=== PATIENT | male | born 1970 | race Caucasian/White ===

== ENCOUNTER 2019-03-19 16:29 | Inpatient (IN) | payer MEDICARE, BC ==
[~2019-03-19] VITALS: Ht 190.5 cm; Wt 128.6 kg
[2019-03-19] MEDS ORDERED: PROPOFOL 1,000 MG/100 ML VIAL As Ordered ONE (16:37)
[2019-03-19] MEDS ORDERED: ETOMIDATE INJ 20MG/10ML VIAL IV ONE (17:00)
[2019-03-19] MEDS ORDERED: ROCURONIUM BROMIDE 50 MG/5 ML VIAL IV ONE (17:00)
[2019-03-19 17:02] LABS: VENOUS BASE EXCESS -3.3 (-2.0-2.0); VENOUS HCO3 23.2 MEQ/L (23.0-27.0); VENOUS O2 SATURATION 97.9 % (60.0-80.0); VENOUS PARTIAL PRESSURE CO2 47.4 mmHg (38.0-50.0); VENOUS PARTIAL PRESSURE O2 140.2 mmHg (30.0-50.0); VENOUS PH 7.308 UNITS (7.330-7.430); VENOUS STANDARD HCO3 21.8 MEQ/L; VENOUS TOTAL CO2 24.7 MEQ/L (24.0-28.0)
[2019-03-19] MEDS ORDERED: EPINEPHrine 1MG/10ML SYRINGE 1.5IN As Ordered ONE (17:08)
[2019-03-19 17:14] LABS: HEMATOCRIT 38.2 % (42.0-52.0); HEMOGLOBIN 12.6 g/dl (13.5-17.5); MEAN CORPUSCULAR VOLUME 93.9 fl (80.0-96.0); PLATELET COUNT, AUTOMATED 243 10^3/uL (150-450); RED BLOOD COUNT 4.07 10^6/uL (4.30-6.10); WHITE BLOOD COUNT 10.5 10^3/uL (4.0-10.0)
[2019-03-19 17:25] LABS: ALBUMIN 3.6 GM/DL (3.2-5.2); BILIRUBIN,TOTAL 0.5 MG/DL (0.2-1.0); CALCIUM LEVEL 8.3 MG/DL (8.5-10.1); CK-MB VALUE MASS 3.1 NG/ML (<3.6); CREATININE FOR GFR 5.48 MG/DL (0.70-1.30); GLOMERULAR FILTRATION RATE 11.9 (>60); MAGNESIUM LEVEL 2.2 MG/DL (1.8-2.4); MB/CK RELATIVE INDEX 2.28 (< OR =4); POTASSIUM SERUM 3.3 MEQ/L (3.5-5.1); TOTAL PROTEIN 7.9 GM/DL (6.4-8.2); TROPONIN I 0.05 NG/ML (< 0.10)
--- NOTE | 2019-03-19 17:42 | REPVR ---
PROCEDURE INFORMATION: Exam: CT Head Without Contrast Exam date and time: 03/19/2019 5:33 PM Age: 48 years old Clinical indication: Other: Seizure like activity TECHNIQUE: Imaging protocol: Computed tomography of the head without contrast. Radiation optimization: All CT scans at this facility use at least one of these dose optimization techniques: automated exposure control; mA and/or kV adjustment per patient size (includes targeted exams where dose is matched to clinical indication); or iterative reconstruction. COMPARISON: No relevant prior studies available. FINDINGS: Brain: No acute intracranial hemorrhage, cerebral edema, or midline shift. Ventricles: No hydrocephalus. Bones/joints: No acute fracture. Sinuses: No acute sinusitis. Mastoid air cells: Visualized mastoid air cells are well aerated. Soft tissues: Unremarkable. Vasculature: Extensive vascular calcifications are present. Clinical correlation for diabetes is suggested. IMPRESSION: No acute intracranial abnormality. Electronically signed by: Albert Sung On 03/19/2019 17:42:20 PM
[2019-03-19] MEDS ORDERED: SERT25TA21 PO (17:54)
[2019-03-19] MEDS ORDERED: RENATAB5 PO (17:54)
[2019-03-19] MEDS ORDERED: VELT1POW (17:54)
[2019-03-19] MEDS ORDERED: GLIP10TA6 PO (17:54)
[2019-03-19] MEDS ORDERED: CARV6.25 PO (17:54)
[2019-03-19] MEDS ORDERED: PANT40TA3 PO (17:54)
[2019-03-19] MEDS ORDERED: VASC1CAP2 PO (17:54)
[2019-03-19] MEDS ORDERED: NOVOINJ3 SC (17:54)
[2019-03-19] MEDS ORDERED: HYDR-3911 PO (17:54)
[2019-03-19] MEDS ORDERED: CLON0.3D8 PO (17:54)
[2019-03-19] MEDS ORDERED: ASPI-1 (17:54)
[2019-03-19] MEDS ORDERED: ROSU10TA6 PO (17:54)
[2019-03-19] MEDS ORDERED: LEVE1INJ5 SC (17:54)
[2019-03-19] MEDS ORDERED: VELP5CHW PO (17:54)
[2019-03-19] MEDS ORDERED: AMLO5TAB6 PO (17:54)
[2019-03-19] MEDS: HumaLOG INSULIN (NovoLOG) PER UNIT SC SCH (18:00)
--- NOTE | 2019-03-19 18:09 | REP ---
Portable chest x-ray: Single view. History: Post intubation. No comparison study. Findings: Endotracheal tube is seen in good position at the level of proximal clavicles. A tunnel catheter is noted on the right via the internal jugular vein with its tip in the expected location of the SVC. There is evidence of a nasogastric tube coursing through the mediastinum. It enters the left upper quadrant of the abdomen. The lung laboy are symmetrically somewhat under aerated but no focal infiltrate is seen. Impression: Endotracheal and nasogastric tubes in place. Central venous catheter noted on the right. No acute disease. Electronically Signed by Vince Daugherty MD 03/20/2019 10:13 A
[2019-03-19] MEDS ORDERED: ASPI81TA26 PO (18:20)
[2019-03-19] MEDS ORDERED: NS 1,000 ML IV SCH (18:37)
[2019-03-19] MEDS ORDERED: LACRILUBE (AKWA TEARS) OPHTH OINT 3.5 GM OU PRN (18:45)
[2019-03-19] MEDS ORDERED: CISATRACURIUM 200 MG in NS 480 ML IV SCH (18:59)
[2019-03-19] MEDS ORDERED: CISATRACURIUM 10MG/ML 20 ML VIAL IV ONE (19:00)
[2019-03-19] MEDS ORDERED: ACETAMINOPHEN 650 MG SUPP PR ONE (19:15)
[2019-03-19] MEDS ORDERED: REFRIGERATOR IV KEYS XX PRN (19:30)
[2019-03-19 19:32] LABS: BASO % 0.2 % (0.0-1.0); EOS # 0.1 10^3/uL (0.0-0.5); EOS % 0.7 % (0.0-3.0); HEMOGLOBIN 13.8 g/dl (13.5-17.5); LYMPH % 10.5 % (24.0-44.0); MEAN CORPUSCULAR HEMOGLOBIN 30.1 pg (27.0-33.0); MEAN CORPUSCULAR HGB CONC 32.1 g/dl (32.0-36.5); MEAN CORPUSCULAR VOLUME 93.9 fl (80.0-96.0); MONO # 1.9 10^3/uL (0.0-0.8); MONO % 9.6 % (0.0-5.0); NEUTROPHILS # 15.2 10^3/uL (1.5-8.5); NEUTROPHILS % 78.7 % (36.0-66.0); PLATELET COUNT, AUTOMATED 261 10^3/uL (150-450); RED BLOOD COUNT 4.58 10^6/uL (4.30-6.10); WHITE BLOOD COUNT 19.3 10^3/uL (4.0-10.0)
[2019-03-19 19:49] LABS: INR 1.06; PROTHROMBIN TIME 13.5 SECONDS (11.8-14.0)
[2019-03-19 20:08] LABS: ALBUMIN 3.5 GM/DL (3.2-5.2); BILIRUBIN,TOTAL 0.4 MG/DL (0.2-1.0); CALCIUM LEVEL 8.5 MG/DL (8.5-10.1); CREATININE FOR GFR 6.05 MG/DL (0.70-1.30); GLOMERULAR FILTRATION RATE 10.6 (>60); MAGNESIUM LEVEL 2.1 MG/DL (1.8-2.4); MB/CK RELATIVE INDEX 4.32 (< OR =4); POTASSIUM SERUM 4.9 MEQ/L (3.5-5.1); TOTAL PROTEIN 7.9 GM/DL (6.4-8.2); TROPONIN I 1.29 NG/ML (< 0.10)
[2019-03-19] MEDS ORDERED: ETOMIDATE INJ 20MG/10ML VIAL ONE (20:33)
[2019-03-19] MEDS ORDERED: ROCURONIUM BROMIDE 50 MG/5 ML VIAL ONE (20:33)
[2019-03-19] MEDS: CHLORHEXIDINE GLUCONATE 0.12 % 15ML UDC (PERIDEX ORAL RINSE) MT SCH (21:00)
[2019-03-19] MEDS: LACRILUBE (AKWA TEARS) OPHTH OINT 3.5 GM OU SCH (21:00)
[2019-03-19 21:12] LABS: HEMATOCRIT 42.5 % (42.0-52.0); HEMOGLOBIN 13.8 g/dl (13.5-17.5); MEAN CORPUSCULAR HEMOGLOBIN 30.7 pg (27.0-33.0); MEAN CORPUSCULAR HGB CONC 32.5 g/dl (32.0-36.5); MEAN CORPUSCULAR VOLUME 94.7 fl (80.0-96.0); PLATELET COUNT, AUTOMATED 265 10^3/uL (150-450); RED BLOOD COUNT 4.49 10^6/uL (4.30-6.10); WHITE BLOOD COUNT 20.6 10^3/uL (4.0-10.0)
[2019-03-19 21:18] LABS: D-DIMER QUANT > 4000.00 ng/ml (<500)
[2019-03-19 21:29] VITALS: BP 158/82
[2019-03-19] MEDS ORDERED: propofoL 1,000 MG in IV 1 EA IV SCH ×2 (21:33→23:30)
[2019-03-19 21:37] LABS: INR 1.55; PARTIAL THROMBOPLASTIN TIME 31.1 SECONDS (25.0-38.4); PROTHROMBIN TIME 18.3 SECONDS (11.8-14.0)
[2019-03-19 21:56] LABS: ALBUMIN 3.5 GM/DL (3.2-5.2); BILIRUBIN,TOTAL 0.5 MG/DL (0.2-1.0); CALCIUM LEVEL 8.7 MG/DL (8.5-10.1); CK-MB VALUE MASS 10.3 NG/ML (<3.6); CREATININE FOR GFR 6.43 MG/DL (0.70-1.30); GLOMERULAR FILTRATION RATE 9.9 (>60); MAGNESIUM LEVEL 2.1 MG/DL (1.8-2.4); MB/CK RELATIVE INDEX 4.77 (< OR =4); PHOSPHORUS LEVEL 5.1 MG/DL (2.5-4.9); POTASSIUM SERUM 4.8 MEQ/L (3.5-5.1); TOTAL PROTEIN 7.7 GM/DL (6.4-8.2); TROPONIN I 2.65 NG/ML (< 0.10)
[2019-03-19] MEDS ORDERED: ACETAMINOPHEN 650 MG SUPP PR PRN (22:00)
[2019-03-19 22:10] VITALS: BP 108/47
[2019-03-19 22:40] VITALS: BP 105/81
[2019-03-19 23:15] VITALS: BP 128/95
[2019-03-19] MEDS: MIDAZOLAM INJ 2 MG/2 ML VIAL (J2250) IV PRN (23:32)
[2019-03-19] MEDS: HEPARIN SOD (PORCINE) 5000 UNITS/ML VIAL (J1644 PER 1000UNITS) SC SCH (23:33)
[2019-03-19 23:59] LABS: ABG HCO3 24.1 MEQ/L (22.0-26.0); ABG O2 SATURATION 98.7 % (95.0-99.0); ABG PARTIAL PRESSURE CO2 41.7 mmHg (35.0-45.0); ABG PARTIAL PRESSURE O2 372.1 mmHg (75.0-100.0); ABG STANDARD HCO3 23.7 MEQ/L (22.0-26.0); ABG TOTAL CO2 25.4 MEQ/L (22.0-29.0)
[2019-03-20] VITALS (75 sets, daily range): BP systolic 86–237; BP diastolic 50–107
[2019-03-20] MEDS: HumaLOG INSULIN (NovoLOG) PER UNIT SC SCH ×2 (00:29→06:17)
[2019-03-20] MEDS: MIDAZOLAM HCL 100 MG in D5W 80 ML IV SCH (01:41)
[2019-03-20] MEDS: MORPHINE SULF IN 0.9% NACL 100 MG in IV 1 EA IV SCH ×2 (01:42)
[2019-03-20] MEDS: niCARdipine IV 40 MG in IV 1 EA IV SCH ×4 (02:16→14:12)
[2019-03-20 02:57] LABS: HEMATOCRIT 42.1 % (42.0-52.0); HEMOGLOBIN 13.8 g/dl (13.5-17.5); MEAN CORPUSCULAR HEMOGLOBIN 30.3 pg (27.0-33.0); MEAN CORPUSCULAR HGB CONC 32.8 g/dl (32.0-36.5); MEAN CORPUSCULAR VOLUME 92.5 fl (80.0-96.0); PLATELET COUNT, AUTOMATED 230 10^3/uL (150-450); RED BLOOD COUNT 4.55 10^6/uL (4.30-6.10); WHITE BLOOD COUNT 20.2 10^3/uL (4.0-10.0)
[2019-03-20 03:08] LABS: INR 1.16; PROTHROMBIN TIME 14.5 SECONDS (11.8-14.0)
[2019-03-20 03:09] LABS: PARTIAL THROMBOPLASTIN TIME 32.8 SECONDS (25.0-38.4)
[2019-03-20 03:30] LABS: ABG HCO3 24.4 MEQ/L (22.0-26.0); ABG O2 SATURATION 98.5 % (95.0-99.0); ABG PARTIAL PRESSURE O2 238.7 mmHg (75.0-100.0); ABG STANDARD HCO3 24.5 MEQ/L (22.0-26.0); ABG TOTAL CO2 25.6 MEQ/L (22.0-29.0); ABG pH (ARTERIAL) 7.414 UNITS (7.350-7.450)
[2019-03-20 03:40] LABS: ALBUMIN 3.4 GM/DL (3.2-5.2); BILIRUBIN,TOTAL 0.4 MG/DL (0.2-1.0); CALCIUM LEVEL 8.3 MG/DL (8.5-10.1); CK-MB VALUE MASS 12.4 NG/ML (<3.6); CREATININE FOR GFR 6.91 MG/DL (0.70-1.30); GLOMERULAR FILTRATION RATE 9.1 (>60); MAGNESIUM LEVEL 2.2 MG/DL (1.8-2.4); MB/CK RELATIVE INDEX 4.77 (< OR =4); PHOSPHORUS LEVEL 3.8 MG/DL (2.5-4.9); POTASSIUM SERUM 5.3 MEQ/L (3.5-5.1); TOTAL PROTEIN 7.6 GM/DL (6.4-8.2); TROPONIN I 2.7 NG/ML (< 0.10)
[2019-03-20 05:38] LABS: ABG BASE EXCESS -1.6 (-2.0-2.0); ABG HCO3 22.6 MEQ/L (22.0-26.0); ABG PARTIAL PRESSURE CO2 36.4 mmHg (35.0-45.0); ABG PARTIAL PRESSURE O2 105.8 mmHg (75.0-100.0); ABG STANDARD HCO3 23.2 MEQ/L (22.0-26.0); ABG TOTAL CO2 23.7 MEQ/L (22.0-29.0); ABG pH (ARTERIAL) 7.411 UNITS (7.350-7.450)
[2019-03-20 06:08] LABS: HEMATOCRIT 40.8 % (42.0-52.0); HEMOGLOBIN 13.5 g/dl (13.5-17.5); MEAN CORPUSCULAR HEMOGLOBIN 30.7 pg (27.0-33.0); MEAN CORPUSCULAR HGB CONC 33.1 g/dl (32.0-36.5); MEAN CORPUSCULAR VOLUME 92.7 fl (80.0-96.0); PLATELET COUNT, AUTOMATED 231 10^3/uL (150-450); WHITE BLOOD COUNT 18.8 10^3/uL (4.0-10.0)
[2019-03-20] MEDS: HEPARIN SOD (PORCINE) 5000 UNITS/ML VIAL (J1644 PER 1000UNITS) SC SCH ×3 (06:16→21:21)
[2019-03-20 06:24] LABS: INR 1.17; PROTHROMBIN TIME 14.7 SECONDS (11.8-14.0)
[2019-03-20 06:25] LABS: PARTIAL THROMBOPLASTIN TIME 33.3 SECONDS (25.0-38.4)
[2019-03-20 06:38] LABS: ALBUMIN 3.4 GM/DL (3.2-5.2); BILIRUBIN,TOTAL 0.4 MG/DL (0.2-1.0); CALCIUM LEVEL 8.6 MG/DL (8.5-10.1); CK-MB VALUE MASS 12.1 NG/ML (<3.6); CREATININE FOR GFR 6.94 MG/DL (0.70-1.30); GLOMERULAR FILTRATION RATE 9.1 (>60); MAGNESIUM LEVEL 2.2 MG/DL (1.8-2.4); MB/CK RELATIVE INDEX 5.9 (< OR =4); PHOSPHORUS LEVEL 2.6 MG/DL (2.5-4.9); POTASSIUM SERUM 4.9 MEQ/L (3.5-5.1); TOTAL PROTEIN 7.4 GM/DL (6.4-8.2); TROPONIN I 2.28 NG/ML (< 0.10)
--- NOTE | 2019-03-20 07:40 | REP ---
Clinical: Status post intubation. Comparison: 03/19/2019. Findings: Endotracheal tube approximately 3.6 cm above the fam. Nasogastric tube courses below left hemidiaphragm. Double-lumen catheter extends into the SVC. The cardiac silhouette is within normal limits and stable. Left lower lobe opacities suggesting consolidation and possible small effusion. Impression: 1. Lines and tubes in satisfactory position. 2. Left lower lobe opacity suggesting consolidation and small effusion. Electronically Signed by Shady Umaña MD 03/20/2019 07:32 A
--- NOTE | 2019-03-20 08:01 | REP ---
CHEST, PORTABLE: Two AP portable supine films of the chest are performed and compared to a prior exam the same day. There is a right double lumen central venous catheter again seen with the tip in the superior vena cava. Endotracheal tube is seen with the tip approximately 6.8 cm above the fam. There is poor ventilation. Pulmonary vasculature is prominent appearing similar to the prior study. Cardiac silhouette is prominent. Mediastinal silhouette is unchanged. There are degenerative changes of the spine. Electronically Signed by Jacob Ponce MD 03/20/2019 01:03 P
[2019-03-20] MEDS: PANTOPRAZOLE 40MG INJ (PROTONIX) (C9113) IV SCH (08:22)
[2019-03-20] MEDS: LACRILUBE (AKWA TEARS) OPHTH OINT 3.5 GM OU SCH ×3 (08:22→20:00)
[2019-03-20] MEDS: CHLORHEXIDINE GLUCONATE 0.12 % 15ML UDC (PERIDEX ORAL RINSE) MT SCH ×2 (08:23→19:59)
--- NOTE | 2019-03-20 09:43 | HPE ---
DATE OF ADMISSION: 03/19/2019 HISTORY OF PRESENT ILLNESS: Mr. Maciel is a 48-year-old male whose past medical history is most significant for end-stage renal disease requiring dialysis, diabetes mellitus, and hypertension who was at dialysis today and apparently after dialysis collapsed. Apparently, there is a question of whether there is seizure movement. An automated external defibrillator (AED) was placed, which did not suggest a shock. When emergency medical services (EMS) arrived the rhythm was pulseless electrical activity (PEA). He was given one doses of epinephrine with return of spontaneous circulation. He had approximately 10 minutes of cardiopulmonary resuscitation (CPR) done. He could not be intubated and an laryngeal mask airway (LMA) was placed. When he was transferred to the hospital here, the LMA was replaced with an endotracheal tube. His workup included a head CT scan, which was read as showing no acute intracranial abnormality. His electrolytes will be dictated below but did not clearly identified an etiology for his difficulties. His lactic acid was elevated at 4.3 but this is post-code. He had an initial VBG which was not markedly abnormal though his initial ABG did show an acute respiratory acidemia. He had been paralyzed for intubation. After that paralysis wore off his propofol drip was stopped. He is moving but he has had no purposeful movement. PAST MEDICAL HISTORY: 1. Diabetes mellitus type 2. 2. End-stage renal disease leading to hemodialysis. 3. . Hypertension. 4. Obstructive sleep apnea (GIUSEPPE) 5. Congenital deafness. 6. Status post left cerebrovascular accident (CVA), ischemic infarct January 2019. 7. Status post gastric bypass. 8. Status post ligation of arteriovenous (AV) fistula. 9. Patent foramen ovale. ALLERGIES: PENICILLINS, BACITRACIN, NEOMYCIN, POLYMYXIN B. MEDICATIONS ON ADMISSION: - amlodipine 5 mg by mouth. - aspirin 81 mg by mouth daily - carvedilol 6.25 mg by mouth twice a day - clonidine 0.3 mg by mouth every week - Aisha-Samantha one by mouth daily - glipizide 20 mg by mouth twice a day - hydralazine 100 mg by mouth three times a day - VASCEPA 2 grams by mouth twice a day - NovoLog 1 dose of in the morning per sliding scale. - Levemir 20 units subcu twice a day - pantoprazole 40 mg by mouth daily. - [id number] mg by mouth every night - sertraline 25 mg by mouth daily. - Velphoro 1500 mg by mouth. SOCIAL HISTORY, FAMILY HISTORY AND REVIEW OF SYSTEMS: Unattainable secondary intubation. PHYSICAL EXAMINATION: GENERAL: Mr. Maciel is intubated and synchronous with the vent, thought he does have "copy" style breathing pattern. VITAL SIGNS: Temperature not taken yet (inserting rectal probe), pulse 107, respiratory rate 20, blood pressure 159/90 with a MAP of 113, sPO2 of 100% on ventilator with an FiO2 of 0.4. HEENT: Anicteric, pupils 3 mm and sluggish. Nares: Patent bilaterally. Moisture mucosa bilaterally. Oropharynx: Endotracheal tube (ET) and orogastric tube (OG) in place. Moist mucosa. NECK: Supple, trachea is midline. LYMPHS: No cervical or supraclavicular lymphadenopathy. CHEST: Normal shape lungs. Symmetric excursion, generalized diminished air entry. No wheeze, rhonchi or crackle on tidal excursion. Normal I/E. No accessory muscle use or retractions. Right subclavian dialysis catheter in place. CARDIOVASCULAR: Tachycardiac with regular rhythm, normal S1, S2. No murmur, rub or gallop appreciated. ABDOMEN: Diminished for present bowel sounds, soft, nondistended, no hepatosplenomegaly or masses appreciated. Well-healed scar. EXTREMITIES: Multiple well-healed cuts as well as a bandage over left morales cut. There is mild erythema. There is also left intraosseous (IO) in place. LABORATORY DATA: Initial CBC showed a hemoglobin of 12.6, hematocrit 38.2, platelet count 243,000, white blood cell count 10,500. Repeat CBC showed a hemoglobin of 13.8, hematocrit 43, platelet count 261,000 and white blood cell count 19,300 with a differential of 79% neutrophils, 11% lymphocytes, 10% monocytes. Chemistries show sodium 135, potassium 3.3, chloride 97, bicarbonate 25, anion gap 13, BUN 20, creatinine 5.5, glucose 239, lactic acid 4.3, calcium 8.3, magnesium 2.2, total bilirubin 0.5, AST 95, ALT 85, alkaline phosphatase 127, CK 136, CK MB 3.1, troponin-I 0.05, total protein 7.9, albumin 3.6. INR is 1.06 and PT 13.51, PTT 31.0 D-dimer is pending. His initial Vvg on arrival was 7.31/47/140 with a measured saturation 97.9% and a base excess of -3.3. I am not certain of what oxygen that was drawn on. His first arterial blood gas shows pH 7.26, pCO2 64, pO2 97 with a measured saturation was 96%. A repeat blood gas after was 7.29/64/282 with a measured saturation of 100%. EKG showed sinus tachycardia with a rate of 100. There is poor R-wave progression. I reviewed his chest x-ray as well as the report from earlier today. That x-ray showed likely normal cardiac silhouette and pulmonary vascular shadows. It is a shallow inspiration and difficult to tell whether there are interstitial infiltrates. There is a right tunneled catheter. Endotracheal tube is in good position. I reviewed his head CT scan report which stated no acute intracranial cranial abnormality. IMPRESSION: 1. [id number]-[id number] cardiac arrest of uncertain etiology. The rhythm was described PEA resuscitation with 1 ampule of epinephrine and CPR 2. End-stage renal disease leading to dailysis. 3. Diabetes mellitus. 4. Congenital blindness. 5. Patent foramen ovale (PFO). 6. History of CVA January 2019 7. Hypertension with poor control. RECOMMENDATIONS: 1. He is not making purposeful movements after CPR, I have discussed this with the emergency department physician. We think it is best to start the hypothermia protocol for best neurologic outcome. 2. We will refrain from sedation or pain control unless paralyzed to allow best neurologic examination. 3. If paralysis, there are standing orders to start him on both the morphine and Versed drips. 4. As he is quite hypertensive at this time and just completed dialysis, and he is dialysis dependent, will not start IV fluids 5. In regards to blood pressure control, at the present time we will use hydralazine given that he is on that as an outpatient. I will also contact nephrology for their recommendations. 6. We will continue on a sliding scale protocol as per the hypothermia protocol. He may need some adjustments in the actual insulin dosage that he is given, given his a significant requirements as an outpatient. 7. His family has been updated. PROGNOSIS: Guarded. CRITICAL CARE TIME: 2 hours not including procedure time. ANASTASIA
[2019-03-20 11:00] LABS: ABG BASE EXCESS -1.3 (-2.0-2.0); ABG HCO3 23.7 MEQ/L (22.0-26.0); ABG O2 SATURATION 97.6 % (95.0-99.0); ABG PARTIAL PRESSURE CO2 38.8 mmHg (35.0-45.0); ABG PARTIAL PRESSURE O2 96.3 mmHg (75.0-100.0); ABG STANDARD HCO3 23.4 MEQ/L (22.0-26.0); ABG pH (ARTERIAL) 7.398 UNITS (7.350-7.450)
[2019-03-20 11:15] LABS: HEMATOCRIT 37.3 % (42.0-52.0); HEMOGLOBIN 12.6 g/dl (13.5-17.5); MEAN CORPUSCULAR HEMOGLOBIN 30.8 pg (27.0-33.0); MEAN CORPUSCULAR HGB CONC 33.8 g/dl (32.0-36.5); MEAN CORPUSCULAR VOLUME 91.2 fl (80.0-96.0); PLATELET COUNT, AUTOMATED 237 10^3/uL (150-450); RED BLOOD COUNT 4.09 10^6/uL (4.30-6.10)
[2019-03-20 11:27] LABS: INR 1.18; PROTHROMBIN TIME 14.7 SECONDS (11.8-14.0)
[2019-03-20 11:28] LABS: PARTIAL THROMBOPLASTIN TIME 27.5 SECONDS (25.0-38.4)
[2019-03-20] MEDS: INSULIN HUMAN REGULAR 100 UNITS in NS 99 ML IV SCH (11:28)
[2019-03-20 11:47] LABS: ALBUMIN 3.3 GM/DL (3.2-5.2); BILIRUBIN,TOTAL 0.6 MG/DL (0.2-1.0); CALCIUM LEVEL 8.6 MG/DL (8.5-10.1); CREATININE FOR GFR 7.31 MG/DL (0.70-1.30); GLOMERULAR FILTRATION RATE 8.5 (>60); MAGNESIUM LEVEL 2.3 MG/DL (1.8-2.4); PHOSPHORUS LEVEL 3.6 MG/DL (2.5-4.9); POTASSIUM SERUM 4.9 MEQ/L (3.5-5.1); TOTAL PROTEIN 7.3 GM/DL (6.4-8.2)
[2019-03-20] MEDS: INSULIN IV RATE CHANGE DOCUMENTATION ML/HR XX SCH ×3 (12:53→16:13)
[2019-03-20 15:02] LABS: HEMATOCRIT 38.5 % (42.0-52.0); HEMOGLOBIN 13.2 g/dl (13.5-17.5); MEAN CORPUSCULAR HEMOGLOBIN 31.4 pg (27.0-33.0); MEAN CORPUSCULAR HGB CONC 34.3 g/dl (32.0-36.5); MEAN CORPUSCULAR VOLUME 91.7 fl (80.0-96.0); PLATELET COUNT, AUTOMATED 228 10^3/uL (150-450); WHITE BLOOD COUNT 14.6 10^3/uL (4.0-10.0)
[2019-03-20 15:13] LABS: ABG BASE EXCESS -0.6 (-2.0-2.0); ABG HCO3 24.3 MEQ/L (22.0-26.0); ABG O2 SATURATION 98.2 % (95.0-99.0); ABG PARTIAL PRESSURE CO2 39.2 mmHg (35.0-45.0); ABG PARTIAL PRESSURE O2 112.4 mmHg (75.0-100.0); ABG TOTAL CO2 25.5 MEQ/L (22.0-29.0); ABG pH (ARTERIAL) 7.405 UNITS (7.350-7.450)
[2019-03-20 15:17] LABS: INR 1.19; PROTHROMBIN TIME 14.9 SECONDS (11.8-14.0)
[2019-03-20 15:18] LABS: PARTIAL THROMBOPLASTIN TIME 32.9 SECONDS (25.0-38.4)
[2019-03-20 15:26] LABS: ALBUMIN 3.2 GM/DL (3.2-5.2); BILIRUBIN,TOTAL 0.6 MG/DL (0.2-1.0); CALCIUM LEVEL 9.4 MG/DL (8.5-10.1); CREATININE FOR GFR 7.57 MG/DL (0.70-1.30); GLOMERULAR FILTRATION RATE 8.2 (>60); MAGNESIUM LEVEL 2.3 MG/DL (1.8-2.4); PHOSPHORUS LEVEL 4.2 MG/DL (2.5-4.9); POTASSIUM SERUM 4.6 MEQ/L (3.5-5.1); TOTAL PROTEIN 7.9 GM/DL (6.4-8.2)
--- NOTE | 2019-03-20 15:39 | CR ---
DATE OF CONSULTATION: 03/20/2019 REQUESTING PHYSICIAN: Dr. Lemons. REASON FOR CONSULTATION: Management of end-stage renal disease, hemodialysis and hypertension. CHIEF COMPLAINT: The patient was brought to the emergency room after cardiac arrest. HISTORY OF PRESENT ILLNESS: Jayant Maciel is a 48-year-old male with past medical history of end-stage renal disease on hemodialysis every Sunday, Sunday, Sunday, history of diabetes mellitus type 2, hypertension, obstructive sleep apnea. He is congenitally deaf and mute. History of a cerebrovascular accident (CVA), multiple other comorbidities as mentioned below. He came for his regular dialysis yesterday and at the end of the dialysis, while the blood was being returned, as reported by nursing staff, he had kind of like a seizure-like activity and he became unconscious. He lost his pulse. Staff started cardiopulmonary resuscitation (CPR) on him. They called 911. By the time emergency medical services (EMS) arrived, he was on the floor for about 5 minutes and CPR was in progress. The EMS continue the resuscitation. His down time was around 10 minutes. Laryngeal mask airway was placed. Patient has pulseless activity on the EMS rhythm, so on the epinephrine was given. No shock was given. In the emergency room the patient got the endotracheal tube placed. He was transferred to intensive care unit (ICU) for further care after resuscitation. Actually he did not receive any pressors. The patient was actually hypertensive and the patient was discussed by myself with the addiction counselor overnight and decision was made to start the patient on Paradione drip. He is currently on Cardene and because it was a witnessed arrest, the patient was started on hypothermia protocol. He was cooled down over night and currently he is intubated, sedated and paralyzed. I saw and evaluated the patient this morning at the bedside in the ICU. His mother was also present at the bedside. Current clinical status was discussed with the mother and she was updated about the patient's current condition. 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 He uses sign language. History of ischemic infarct in the chele in January 2019. History of patent foramen ovale and recent admission to the hospital with bacteremia. PAST SURGICAL HISTORY: Status post ligation of the left forearm arteriovenous (AV) fistula because of ischemia in the fingers. 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 Status post gastric bypass in the past. ALLERGIES: The patient is allergic to PENICILLIN, NEOMYCIN and POLYMYXIN and BACITRACIN. FAMILY HISTORY: No significant family history of end-stage renal disease requiring hemodialysis. SOCIAL HISTORY: The patient lives at home with his . His mother also helps with his care. REVIEW OF SYSTEMS: I was unable to do review of systems because the patient is intubated and sedated. PHYSICAL EXAMINATION: GENERAL: The patient is intubated, sedated, paralyzed. VITAL SIGNS: Temperature is 96.9 degrees Fahrenheit, blood pressure 187/75, pulse is 84, respiratory rate of 22, saturating 98% on the vent with 40% FiO2. HEAD AND NECK EXAM: Patient's eyes are closed. Pupils are myotic and sluggish response to light. Neck is supple. He has a tunneled hemodialysis catheter. CARDIOVASCULAR: S1, S2, regular rate. No edema of the bilateral lower extremities. RESPIRATORY: Chest is clear to auscultation bilaterally. He is intubated. He has an endotracheal tube. No active rales or rhonchi. ABDOMEN: Soft, obese, no organomegaly noted. GENITOURINARY: He has an indwelling Shelton catheter. MUSCULOSKELETAL: The patient has amputation of the left ring finger. No clubbing or cyanosis in the extremities. No edema of the bilateral lower extremities. 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 SKIN: No significant rashes or ulcers were noted. LAB REVIEW: CBC showed WBC of 16, hemoglobin 12.6, platelets of 237, INR is 1.1. ABG done this morning showed pH of 7.39, pCO2 of 38, pO2 96, bicarb is 25. Old sat is 97%. BMP showed sodium 133, potassium 4.9, chloride 96, bicarb 26, BUN 35, creatinine is 7.3, calcium 8.6, phosphorus 3.6, magnesium 2.3, troponin latest is 2.28, albumin 3.3. Imaging: A chest x-ray was done today morning which showed lines and tubes in satisfactory position left lower lobe opacity suggesting consolidation and small effusion. CT of the head without contrast was done which showed no acute intracranial abnormality. CURRENT INPATIENT MEDICATIONS: The patient is currently on morphine drip. He is on nicardipine at 5 mg an hour. He is on IV propofol. He is on Versed drip. He is paralyzed with cisatracurium, Tylenol as needed , Versed as needed for agitation, Protonix 40 mg IV daily. ASSESSMENT: 48-year-old male with end-stage renal disease on hemodialysis, hypertension, diabetes mellitus type 2, congenital deafness, patent foramen ovale, over history of CVA in January 2019 admitted this time after cardiac arrest currently undergoing hypothermia protocol. PLAN: 1. End-stage renal disease: The patient was dialyzed yesterday. His electrolytes and acid base status is within the acceptable range. No urgent need for dialysis at this time especially when the patient is undergoing hypothermia, I would not dialyze the patient. He will be evaluated tomorrow morning for need to do hemodialysis. 2. Hypertension: The patient's blood pressures were all uncontrolled after resuscitation. He is currently on Cardene drip. It can be titrated up to maintain his blood pressure less than 160 systolic. 3. Diabetes mellitus type 2 insulin dependent. The patient is currently on insulin drip at 4 units an hour. Glucose levels are within the acceptable range. 4. Status post cardiac arrest: The patient is currently intubated, sedated and paralyzed. He is undergoing hypothermia protocol. Troponins are slightly elevated. Blood pressure is being controlled with Cardene drip as mentioned above. 5. Vent dependent respiratory failure: It is secondary to cardiac arrest and currently he is on the vent because he is been undergoing hypothermia. Vent management is as per pulmonary service. Thank you for involving me in the care of this patient. I shall be happy to follow the patient along with you tomorrow morning. Total critical care time spent in the management of this patient this morning in the ICU was 70 minutes excluding all the procedures.
--- NOTE | 2019-03-20 15:42 | CCN ---
DATE: 03/20/2019 NOTED: Mr. Maciel remains critically ill following an [id number] cardiac arrest yesterday afternoon. The etiology is not known as to the cause of the arrest. I was able to clarify from his and speaking with Dr. Soto that he had just finished his dialysis run and he was getting blood back. Typically, they stand up to take a blood pressure. After that was done, he apparently collapsed to the floor. No pulse was felt. Cardiopulmonary resuscitation (CPR) was started. Emergency Medical Services (EMS) arrived in about 5 minutes and the rest is according to the note I dictated yesterday. He had minimal responsiveness in the emergency department. His response consisted of moving his head back and forth some, biting the tube at times and It was felt best to start the hypothermia protocol and he reached the desired temperature at 1 a.m. this morning. Prior to that he had moved his legs some and arms some but it was almost posturing movements. No purposeful movement was seen. His family was there attempting to sign with him but he would not track or focus. He was hypertensive and he was started on Nimbex yesterday evening with a systolic blood pressure goal of 150-160. Because of head moving he was placed on propofol briefly, then he began shivering and propofol was discontinued. Continuous morphine and Versed drips were started and he was paralyzed. OBJECTIVE/PHYSICAL EXAMINATION: General: Mr. Maciel is lying in bed. He is paralyzed. Vital Signs: Temperature 96.9, pulse 84, respiratory rate 22, blood pressure 187/75, SpO2 98% on FiO2 0.4. HEENT: Anicteric, left pupil 2 mm and reactive, right pupil 1 mm and reactive. Nares: Patent bilaterally. Moist mucousa. Oropharynx: Endotracheal tube (ET) tube and orogastric (OG) tube in place. Neck: Without lymphadenopathy, trachea is midline. Lungs: Limited exam secondary to Artic Sun. What is heard is good air entry. No wheeze, rhonchi or crackle. Abdomen: Limited exam because of Artic Sun. Decreased bowel sounds. Soft. Extremities: Cool, without clubbing or cyanosis, palpable right pedal pulse and dopplerable left pedal pulse. LABORATORY DATA: Most recent labs from 10:50 shows CBC of 12.6, hematocrit 37.3, platelet count 273,000, white blood cell count 16,000. Chemistries from the same time show a sodium 133, potassium 4.9, chloride 96, bicarbonate 26, anion gap 11, BUN 35, creatinine 7.3, glucose 331, calcium 8.6, phosphorus 3.6, magnesium 2.3, total bilirubin 0.6, AST 35, ALT 59, alkaline phosphatase 117, albumin 3.3. Peak Troponin was 2.7 at 02:49 with a subsequent one 2.28 at 05:52. INR 1.2 and PTT 27.5. Most recent arterial blood gas at 10:50 was 7.4/39/96 with a measured saturation of 98% and a base excess of -1.3. I reviewed his chest x-ray as well as the report. That x-ray showed normal appearing cardiac silhouette and pulmonary vascular shadows. Normal-appearing mediastinal and hilar regions. No consolidated regions. There was a haziness in the left costophrenic angle and loss of the diaphragm on the left. IMPRESSION: 1. Out of hospital cardiac arrest, unknown etiology, differential would include hypovolemia, cardiac arrhythmia, CVA, or other. 2. End-stage renal disease leading to dialysis. 3. Diabetes mellitus, on sliding scale insulin. 4. Hypertension, on Nimbex. 5. Congenital blindness and mutism. 6. History of pontine CVA 01/2019. 7. Patent foramen ovale. 8. Deep venous thrombosis (DVT) prophylaxis, on subcutaneous heparin. 9. Stress ulcer prophylaxis with proton pump inhibitor. 10. Nutrition: Nothing by mouth RECOMMENDATIONS: 1. Will continue hypothermia protocol. Anticipate rewarming will start at 1 a.m. on 03/21/2019 2. Will start insulin drip. 3. Will continue Nimbex with SBP goal of 150-160. 4. I have spoken with Dr. Soto and plan is for dialysis tomorrow morning. He recommended if his potassium got above in the 5.5-6 range that he be given Kayexalate. If it is above 6, they should be contacted. 5. I have updated the family consisting of his , his mother and his [id number]. CRITICAL CARE TIME: 40 minutes, not including procedure time. [facility] HOSPITALColt
[2019-03-20] MEDS ORDERED: CISATRACURIUM 200 MG in NS 480 ML IV SCH (17:00)
[2019-03-20] MEDS ORDERED: ASPIRIN 300 MG SUPP PR ONE (17:45)
[2019-03-20 18:41] LABS: ABG O2 SATURATION 96.6 % (95.0-99.0); ABG PARTIAL PRESSURE CO2 39.3 mmHg (35.0-45.0); ABG STANDARD HCO3 23.6 MEQ/L (22.0-26.0); ABG TOTAL CO2 25.2 MEQ/L (22.0-29.0); ABG pH (ARTERIAL) 7.399 UNITS (7.350-7.450)
[2019-03-20 19:04] LABS: HEMATOCRIT 36.2 % (42.0-52.0); HEMOGLOBIN 12.4 g/dl (13.5-17.5); MEAN CORPUSCULAR HEMOGLOBIN 31.3 pg (27.0-33.0); MEAN CORPUSCULAR HGB CONC 34.3 g/dl (32.0-36.5); MEAN CORPUSCULAR VOLUME 91.4 fl (80.0-96.0); PLATELET COUNT, AUTOMATED 223 10^3/uL (150-450); RED BLOOD COUNT 3.96 10^6/uL (4.30-6.10); WHITE BLOOD COUNT 15.2 10^3/uL (4.0-10.0)
[2019-03-20 19:15] LABS: INR 1.22; PROTHROMBIN TIME 15.1 SECONDS (11.8-14.0)
[2019-03-20 19:16] LABS: PARTIAL THROMBOPLASTIN TIME 32.6 SECONDS (25.0-38.4)
[2019-03-20 19:36] LABS: ALBUMIN 3.2 GM/DL (3.2-5.2); BILIRUBIN,TOTAL 0.3 MG/DL (0.2-1.0); CREATININE FOR GFR 7.85 MG/DL (0.70-1.30); GLOMERULAR FILTRATION RATE 7.9 (>60); MAGNESIUM LEVEL 2.4 MG/DL (1.8-2.4); PHOSPHORUS LEVEL 4.4 MG/DL (2.5-4.9); POTASSIUM SERUM 4.1 MEQ/L (3.5-5.1); TOTAL PROTEIN 7.1 GM/DL (6.4-8.2)
[2019-03-20 23:10] LABS: ABG BASE EXCESS -0.5 (-2.0-2.0); ABG HCO3 24.4 MEQ/L (22.0-26.0); ABG O2 SATURATION 98.1 % (95.0-99.0); ABG PARTIAL PRESSURE CO2 39.3 mmHg (35.0-45.0); ABG STANDARD HCO3 24.1 MEQ/L (22.0-26.0); ABG TOTAL CO2 25.6 MEQ/L (22.0-29.0); ABG pH (ARTERIAL) 7.406 UNITS (7.350-7.450)
[2019-03-20 23:12] LABS: HEMATOCRIT 34.1 % (42.0-52.0); HEMOGLOBIN 11.8 g/dl (13.5-17.5); MEAN CORPUSCULAR HEMOGLOBIN 31.5 pg (27.0-33.0); MEAN CORPUSCULAR HGB CONC 34.6 g/dl (32.0-36.5); MEAN CORPUSCULAR VOLUME 90.9 fl (80.0-96.0); PLATELET COUNT, AUTOMATED 222 10^3/uL (150-450); RED BLOOD COUNT 3.75 10^6/uL (4.30-6.10); WHITE BLOOD COUNT 16.8 10^3/uL (4.0-10.0)
[2019-03-20 23:23] LABS: INR 1.25; PROTHROMBIN TIME 15.5 SECONDS (11.8-14.0)
[2019-03-20 23:24] LABS: PARTIAL THROMBOPLASTIN TIME 36.3 SECONDS (25.0-38.4)
[2019-03-20 23:49] LABS: BILIRUBIN,TOTAL 0.3 MG/DL (0.2-1.0); CALCIUM LEVEL 8.5 MG/DL (8.5-10.1); CREATININE FOR GFR 7.88 MG/DL (0.70-1.30); GLOMERULAR FILTRATION RATE 7.8 (>60); MAGNESIUM LEVEL 2.2 MG/DL (1.8-2.4); PHOSPHORUS LEVEL 5.3 MG/DL (2.5-4.9); POTASSIUM SERUM 4.7 MEQ/L (3.5-5.1); TOTAL PROTEIN 6.8 GM/DL (6.4-8.2)
[2019-03-21] VITALS (47 sets, daily range): BP systolic 99–210; BP diastolic 49–138
[2019-03-21] MEDS: INSULIN HUMAN REGULAR 100 UNITS in NS 99 ML IV SCH ×2
[2019-03-21 03:02] LABS: ABG BASE EXCESS -1.2 (-2.0-2.0); ABG HCO3 23.3 MEQ/L (22.0-26.0); ABG O2 SATURATION 97.9 % (95.0-99.0); ABG PARTIAL PRESSURE CO2 37.3 mmHg (35.0-45.0); ABG PARTIAL PRESSURE O2 129.7 mmHg (75.0-100.0); ABG STANDARD HCO3 23.4 MEQ/L (22.0-26.0); ABG TOTAL CO2 24.5 MEQ/L (22.0-29.0)
[2019-03-21 03:10] LABS: HEMATOCRIT 33.3 % (42.0-52.0); HEMOGLOBIN 11.4 g/dl (13.5-17.5); MEAN CORPUSCULAR HEMOGLOBIN 31.2 pg (27.0-33.0); MEAN CORPUSCULAR HGB CONC 34.2 g/dl (32.0-36.5); MEAN CORPUSCULAR VOLUME 91.2 fl (80.0-96.0); PLATELET COUNT, AUTOMATED 216 10^3/uL (150-450); RED BLOOD COUNT 3.65 10^6/uL (4.30-6.10); WHITE BLOOD COUNT 17.4 10^3/uL (4.0-10.0)
[2019-03-21 03:24] LABS: INR 1.25; PROTHROMBIN TIME 15.4 SECONDS (11.8-14.0)
[2019-03-21 03:25] LABS: PARTIAL THROMBOPLASTIN TIME 34.8 SECONDS (25.0-38.4)
[2019-03-21 03:45] LABS: ALBUMIN 2.9 GM/DL (3.2-5.2); BILIRUBIN,TOTAL 0.4 MG/DL (0.2-1.0); CREATININE FOR GFR 8.4 MG/DL (0.70-1.30); GLOMERULAR FILTRATION RATE 7.3 (>60); MAGNESIUM LEVEL 2.1 MG/DL (1.8-2.4); PHOSPHORUS LEVEL 6.1 MG/DL (2.5-4.9); POTASSIUM SERUM 4.5 MEQ/L (3.5-5.1); TOTAL PROTEIN 6.7 GM/DL (6.4-8.2)
--- NOTE | 2019-03-21 05:43 | ECGEPIP ---
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
[2019-03-21] MEDS: niCARdipine IV 40 MG in IV 1 EA IV SCH (05:45)
[2019-03-21 06:04] LABS: ABG BASE EXCESS -1.8 (-2.0-2.0); ABG HCO3 23.7 MEQ/L (22.0-26.0); ABG O2 SATURATION 79.8 % (95.0-99.0); ABG PARTIAL PRESSURE CO2 43.6 mmHg (35.0-45.0); ABG STANDARD HCO3 22.6 MEQ/L (22.0-26.0); ABG TOTAL CO2 25.1 MEQ/L (22.0-29.0); ABG pH (ARTERIAL) 7.354 UNITS (7.350-7.450)
[2019-03-21 06:08] LABS: ABG PARTIAL PRESSURE O2 44.3 mmHg (75.0-100.0)
[2019-03-21] MEDS: HEPARIN SOD (PORCINE) 5000 UNITS/ML VIAL (J1644 PER 1000UNITS) SC SCH ×3 (06:44→21:29)
[2019-03-21] MEDS: MORPHINE SULF IN 0.9% NACL 100 MG in IV 1 EA IV SCH ×2 (06:45)
[2019-03-21 07:20] LABS: HEMATOCRIT 30.2 % (42.0-52.0); HEMOGLOBIN 10.2 g/dl (13.5-17.5); MEAN CORPUSCULAR HEMOGLOBIN 31.2 pg (27.0-33.0); MEAN CORPUSCULAR HGB CONC 33.8 g/dl (32.0-36.5); MEAN CORPUSCULAR VOLUME 92.4 fl (80.0-96.0); PLATELET COUNT, AUTOMATED 200 10^3/uL (150-450); RED BLOOD COUNT 3.27 10^6/uL (4.30-6.10)
[2019-03-21 07:30] LABS: INR 1.28; PROTHROMBIN TIME 15.7 SECONDS (11.8-14.0)
[2019-03-21 07:31] LABS: PARTIAL THROMBOPLASTIN TIME 34.6 SECONDS (25.0-38.4)
[2019-03-21] MEDS: MIDAZOLAM HCL 100 MG in D5W 80 ML IV SCH (07:34)
[2019-03-21 07:51] LABS: ALBUMIN 2.4 GM/DL (3.2-5.2); BILIRUBIN,TOTAL 0.3 MG/DL (0.2-1.0); CALCIUM LEVEL 7.8 MG/DL (8.5-10.1); CREATININE FOR GFR 7.67 MG/DL (0.70-1.30); GLOMERULAR FILTRATION RATE 8.1 (>60); PHOSPHORUS LEVEL 5.8 MG/DL (2.5-4.9); POTASSIUM SERUM 4.1 MEQ/L (3.5-5.1); TOTAL PROTEIN 5.4 GM/DL (6.4-8.2)
--- NOTE | 2019-03-21 08:04 | REP ---
Clinical: Status post intubation. Comparison: 03/20/2019. Findings: Endotracheal tube 4.5 cm above the fam. Nasogastric tube courses below left hemidiaphragm. Double-lumen catheter with tip in the SVC. Cardiac silhouette is stable. Left lower lobe opacity suggests elements of consolidation and possible small effusion improved from prior examination. No new acute process. Impression: 1. Lines and tubes in satisfactory position. 2. Left lower lobe opacity again noted but improved as compared to prior. Electronically Signed by Shady Umaña MD 03/21/2019 07:56 A
[2019-03-21] MEDS: LACRILUBE (AKWA TEARS) OPHTH OINT 3.5 GM OU SCH ×3 (08:08→21:30)
[2019-03-21] MEDS: PANTOPRAZOLE 40MG INJ (PROTONIX) (C9113) IV SCH (08:08)
[2019-03-21] MEDS: CHLORHEXIDINE GLUCONATE 0.12 % 15ML UDC (PERIDEX ORAL RINSE) MT SCH ×2 (08:08→21:29)
[2019-03-21] MEDS ORDERED: PROPOFOL 1,000 MG/100 ML VIAL As Ordered ONE (10:36)
[2019-03-21] MEDS: MIDAZOLAM INJ 2 MG/2 ML VIAL (J2250) IV PRN ×2 (10:43→12:38)
[2019-03-21] MEDS: propofoL 1,000 MG in IV 1 EA IV SCH ×3 (10:44→22:29)
[2019-03-21 11:40] LABS: HEMATOCRIT 35.2 % (42.0-52.0); HEMOGLOBIN 11.6 g/dl (13.5-17.5); MEAN CORPUSCULAR HEMOGLOBIN 30.8 pg (27.0-33.0); MEAN CORPUSCULAR VOLUME 93.4 fl (80.0-96.0); PLATELET COUNT, AUTOMATED 224 10^3/uL (150-450); RED BLOOD COUNT 3.77 10^6/uL (4.30-6.10); WHITE BLOOD COUNT 14.3 10^3/uL (4.0-10.0)
[2019-03-21 12:10] LABS: PHOSPHORUS LEVEL 4.1 MG/DL (2.5-4.9)
--- NOTE | 2019-03-21 13:37 | REP ---
Clinical: Status post cardiac arrest. Comparison: 03/19/2019 . Findings: Age-related atrophy and microvascular ischemic changes are appreciated. The ventricles and sulci are symmetric. Ponce-white differentiation is maintained. There is no evidence for acute intracranial hemorrhage, mass/mass effect, pathology or infarction. No extra-axial fluid collection. Calvarium is intact. Paranasal sinuses and mastoid air cells are clear. Impression: Age related atrophy and microvascular ischemic changes. No acute intracranial hemorrhage, infarction, or mass/mass effect. Electronically Signed by Shady Umaña MD 03/21/2019 01:28 P
[2019-03-21 15:05] LABS: HEMATOCRIT 34.6 % (42.0-52.0); HEMOGLOBIN 11.6 g/dl (13.5-17.5); MEAN CORPUSCULAR HEMOGLOBIN 31.4 pg (27.0-33.0); MEAN CORPUSCULAR HGB CONC 33.5 g/dl (32.0-36.5); MEAN CORPUSCULAR VOLUME 93.5 fl (80.0-96.0); PLATELET COUNT, AUTOMATED 215 10^3/uL (150-450); WHITE BLOOD COUNT 17.9 10^3/uL (4.0-10.0)
[2019-03-21 15:35] LABS: PHOSPHORUS LEVEL 5.1 MG/DL (2.5-4.9)
[2019-03-21 19:29] LABS: HEMATOCRIT 33.2 % (42.0-52.0); MEAN CORPUSCULAR HEMOGLOBIN 31.2 pg (27.0-33.0); MEAN CORPUSCULAR HGB CONC 33.1 g/dl (32.0-36.5); MEAN CORPUSCULAR VOLUME 94.1 fl (80.0-96.0); PLATELET COUNT, AUTOMATED 197 10^3/uL (150-450); RED BLOOD COUNT 3.53 10^6/uL (4.30-6.10); WHITE BLOOD COUNT 19.1 10^3/uL (4.0-10.0)
[2019-03-21 19:47] LABS: MAGNESIUM LEVEL 2.2 MG/DL (1.8-2.4); PHOSPHORUS LEVEL 5.5 MG/DL (2.5-4.9)
[2019-03-21] MEDS ORDERED: DEXTROSE 50% 50 ML SYRINGE IV PRN (20:45)
[2019-03-21] MEDS ORDERED: GLUCAGON FOR INJ 1 MG VIAL (J1610) SC PRN (20:45)
[2019-03-21] MEDS ORDERED: GLUCOSE 4 GM CHEW TABLET PO PRN (20:45)
--- NOTE | 2019-03-21 20:46 | IPN ---
DATE: 03/21/2019 SUBJECTIVE: The patient was seen and examined at the bedside today morning during hemodialysis procedure. He is tolerating the hemodialysis procedure well. In the intensive care unit (ICU) he is being warmed now. Intravenous (IV) Cardene drip has been stopped. Blood pressures are within the acceptable range, and paralytic medication has also been stopped. The patient is tolerating the hemodialysis procedure well. OBJECTIVE: Vital signs: Temperature is 97.9 degrees Fahrenheit, blood pressure 126/54, pulse is 100, respiratory of 22, saturating 98% on the vent with 40% FiO2. Intake and output: Urine output recorded is only 10 mL. Weight in the bed scale is 122.3 kg. PHYSICAL EXAMINATION: GENERAL: The patient is intubated. Sedation was just turned off. Nonverbal. Eyes are closed. HEAD AND NECK : Pupils are myotic and a very sluggish response to light. He has an endotracheal tube. Neck is supple. There is no jugular venous distention (JVD). CARDIOVASCULAR: S1, S2, regular rate. Very trace edema of the bilateral lower extremities. RESPIRATORY: Chest is clear to auscultation bilaterally. Bilateral equal air entry. No rales or rhonchi. ABDOMEN: Soft, obese, positive bowel sounds. Nontender. No organomegaly. MUSCULOSKELETAL: No clubbing or cyanosis. Pulses are 2+. CENTRAL NERVOUS SYSTEM: I could not examine the central nervous system (ACADEMIC SUPPORT SPECIALIST) because the patient was paralyzed, and medication was just turned off. LABORATORY REVIEW: CBC showed WBC of 15, hemoglobin 10.2, platelets of 200. ABG done today morning showed pH 7.3, pCO2 of 43, pO2 44, bicarbonate is 23, oxygen saturation is 79%. BMP showed sodium 140, potassium 4.1, chloride 105, bicarbonate 23, BUN 43, creatinine is 7.6. Lactic acid 1.4. Phosphorus 5.8. IMAGING: A chest x-ray was done today morning. It showed lines and tubes in satisfactory position. Left lower lobe opacity is noted but improving as compared to prior. CURRENT INPATIENT MEDICATIONS: The patient's medications were all reviewed by me. Nicardipine infusion is on hold now. Versed drip has been stopped. Cisatracurium has been stopped. No other change in the medications today as compared with yesterday. ASSESSMENT AND PLAN: 1. End-stage renal disease. The patient is being dialyzed at the bedside. He is tolerating the hemodialysis procedure well. Minimal fluid removal will be done as tolerated by his blood pressure. 2. Hypertension. The patient was needing Cardene drip while he was being cooled. Right now his blood pressures are optimal. No need of antihypertensive medications at this time. 3. Diabetes mellitus, type 2. The patient was on insulin drip. It has been stopped now. 4. Status post cardiac arrest. The patient underwent hypothermia protocol. He is currently being warmed now. Not requiring any pressors at this time.
[2019-03-22] VITALS (31 sets, daily range): BP systolic 104–191; BP diastolic 57–82; O2SAT 97
[2019-03-22] MEDS: HumaLOG INSULIN (NovoLOG) PER UNIT SC SCH ×4 (00:55→18:00)
[2019-03-22] MEDS: propofoL 1,000 MG in IV 1 EA IV SCH ×2 (03:33→07:12)
[2019-03-22 04:57] LABS: HEMATOCRIT 31.7 % (42.0-52.0); HEMOGLOBIN 10.6 g/dl (13.5-17.5); MEAN CORPUSCULAR HEMOGLOBIN 31.4 pg (27.0-33.0); MEAN CORPUSCULAR HGB CONC 33.4 g/dl (32.0-36.5); MEAN CORPUSCULAR VOLUME 93.8 fl (80.0-96.0); PLATELET COUNT, AUTOMATED 180 10^3/uL (150-450); RED BLOOD COUNT 3.38 10^6/uL (4.30-6.10); WHITE BLOOD COUNT 17.4 10^3/uL (4.0-10.0)
[2019-03-22 05:22] LABS: CALCIUM LEVEL 9.1 MG/DL (8.5-10.1); CREATININE FOR GFR 7.62 MG/DL (0.70-1.30); GLOMERULAR FILTRATION RATE 8.1 (>60); MAGNESIUM LEVEL 2.2 MG/DL (1.8-2.4); PHOSPHORUS LEVEL 6.8 MG/DL (2.5-4.9); POTASSIUM SERUM 4.9 MEQ/L (3.5-5.1)
[2019-03-22] MEDS: HEPARIN SOD (PORCINE) 5000 UNITS/ML VIAL (J1644 PER 1000UNITS) SC SCH ×3 (06:25→21:34)
--- NOTE | 2019-03-22 08:48 | CCN ---
DATE: 03/21/2019 Mr. Maciel remained hemodynamically stable overnight. His Nimbex was weaned off around 04:00 a.m. He reached his rewarming temperature of 37 degrees around 01:00 a.m. and he will be held at this temperature for 24 hours. PHYSICAL EXAMINATION General: Mr. Maciel is intubated, paralyzed and on a ventilator. Vital signs: Temperature 98.8, pulse 88, respiratory rate 22, blood pressure 178/75, with a MAP 0108. SPO2 99% on FIO2 2.4. HEENT: Anicteric, pupils 1 mm and reactive. Nares: Patent bilaterally, moist mucosa. Oropharynx: Clear, moist mucosa. ET tube in place. Neck: Trachea is midline. Lungs: Symmetric excursion. Good air entry. No wheeze, rhonchi or crackle appreciated. Limited exam secondary to the [place]. Cardiovascular: Regular rate and rhythm, normal S1, S2, no murmur, rub or gallop appreciated. Abdomen: Diminished bowel sounds, soft, limited examination secondary to the [place]. Extremities: Without clubbing, cyanosis, right pedal pulses palpable. Left pedal pulses is Dopplerable. LABORATORY DATA CBC shows a hemoglobin 11.6, hematocrit 35.2, platelet count 224,000, white blood cell count 14,300. Most recent chemistry shows sodium 140, potassium 4.1, chloride 105, bicarbonate 23, anion gap 12, BUN 23, creatinine 7.7, glucose 92, lactic acid 1.4, calcium 7.8, phosphorus 5.8, magnesium 2.0, AST 15, ALT 31, alkaline phosphatase 77, total protein 5.4, albumin 2.4. I reviewed his chest x-ray as well as report from earlier today. That x-ray showed normal-appearing cardiac silhouette and pulmonary vascular shadows. There remains an opacity in the left lower lobe that is improved. ET tube is in good position. Yesterday's Intake and output (I and O) were 1076 in and 132 out making him positive 944. Thus far today to 280 in and 60 out making him positive 228, though undergoing dialysis. Weight 122.3 kg. IMPRESSION: 1. Out of hospital cardiac arrest, unknown etiology. 2. Acute respiratory failure secondary to cardiac arrest leading to mechanical ventilation. 3. End-stage renal disease on dialysis. 4. Diabetes mellitus, on insulin drip. 5. Hypertension. Previously on Nimbex but that was discontinued earlier today. 6. Congenital blindness and mutism. 7. 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 8. Patent foramen ovale. 10. DVT prophylaxis. Continue subcutaneous heparin. 11. Stress ulcer prophylaxis. Proton pump inhibitor. 12. Nutrition: Nothing by mouth. RECOMMENDATIONS 1. Will continue the rewarming portion of the hypothermia protocol. This ends around 01:00 a.m.. 2. Will discontinue insulin drip. 3. Will stop paralytics at this time. 4. Continuous Versed and morphine once the paralytics are off. 5. Sedation as needed. At that time will use propofol. 6. He had been on clonidine which he has not been on since his cardiac arrest. We have not seen any evidence of rebound hypertension which typically occur within the first 48 hours. 7. Depending upon his mental status once he is off the drips, will need to consider other evaluation, likely starting with a head CT if needed. ADDENDUM After Mr. Maciel was off paralytics and continuous sedation/pain medication, he began having almost shivering appearing motions but only predominately in the right upper arm and occasionally in the left arm. No similar motion in his extremities or trunk. At that point he was placed back on propofol and the plan is to obtain a head CT scan early this afternoon after his dialysis is completed. Critical care time: 45 minutes not including procedure time. ANASTASIA
--- NOTE | 2019-03-22 08:53 | REP ---
Clinical: Intubation. Comparison: 03/21/2019. Findings: Endotracheal tube 4.5 cm above the fam. Nasogastric tube courses below left hemidiaphragm. Double-lumen dialysis catheter with tip in the SVC/right atrium. Cardiac silhouette is stable. Evaluation is limited by poor inspiratory effort, but improved aeration to the left hemithorax with decreased opacity is suggested. No obvious new acute process identified. Impression: Improved aeration with decreased opacity to the left lower lung zone. No new acute process. Electronically Signed by Shady Umaña MD 03/22/2019 08:44 A
[2019-03-22] MEDS: PANTOPRAZOLE 40MG INJ (PROTONIX) (C9113) IV SCH (10:06)
[2019-03-22] MEDS: CHLORHEXIDINE GLUCONATE 0.12 % 15ML UDC (PERIDEX ORAL RINSE) MT SCH ×2 (10:06→21:33)
[2019-03-22] MEDS: LACRILUBE (AKWA TEARS) OPHTH OINT 3.5 GM OU SCH ×3 (10:06→21:34)
--- NOTE | 2019-03-22 11:30 | EEG ---
DATE OF PROCEDURE: 03/21/2019 REFERRING PHYSICIAN: Asael Lemons MD DIAGNOSIS: Altered mental status after pulseless cardiac arrest. EEG #: 20 - 21 HISTORY: The patient is a 48-year-old man who was getting hemodialysis when he became unresponsive without pulse. He was down for 10 minutes. CPR was administered. The patient is in intensive care unit on mechanical ventilator. He had a stroke in 2019 which caused right-sided weakness. Current list of medication was not provided. TECHNICAL DESCRIPTION This digital EEG was recorded by 21 scalp, ear and two EKG electrodes and was reviewed in bipolar and referential montages following reformatting in 10-20 international electrode placement system. INTERPRETATION The patient was noted to be in unresponsive state during this EEG. Excessive muscle artifact was noted throughout this study. In readable portions of EEG background rhythm consisted of 4 - 5 Hz, delta - theta activity measuring 10 - 40 microvolts in amplitude. It was symmetric bilaterally. No sleep stages could be identified. Hyperventilation could not be performed. No focal, lateralizing or epileptiform abnormalities were seen. No relevant clinical activity was noted. EKG leads were affected by artifact as well. CONCLUSION This EEG on a mechanically ventilated patient is affected by severe muscle artifact throughout. In readable portions of EEG background rhythm is consistent with nonspecific diffuse cerebral dysfunction such as seen in encephalopathy due to multiple potential causes. No epileptiform abnormalities were seen. Clinical correlation is recommended.
[2019-03-22 13:08] LABS: ERYTHROCYTE SEDIMENTATION RATE 91 mm/hr (0-15)
[2019-03-22] MEDS: niCARdipine IV 40 MG in IV 1 EA IV SCH (13:45)
--- NOTE | 2019-03-22 16:45 | CCN ---
DATE: 03/22/2019 NOTE: Mr. Maciel remains critically ill status post cardiac arrest leading to mechanical ventilation. He has had no change neurologically. He was on some sedation last night because of biting the tube, but is off it today and has not had any purposeful movement. He continues to not appear to focus. His mother has tried to sign to him and he does not show any recognition. He has not purposely spontaneously moved his lower extremities or upper extremities. This morning, he does not have the tremors he had yesterday in his right arm. He does have a cough and is overbreathing the ventilator. Head CT yesterday was unremarkable. His EEG, however, is consistent with nonspecific diffuse cerebral dysfunction. No epileptiform abnormalities were seen. OBJECTIVE: PHYSICAL EXAMINATION: Mr. Maciel is lying in bed, occasionally double-stacking on the ventilator, but overbreathing the set rate. No purposeful movements. He is deaf mute/mute, but knows sign language and does not focus or recognize. VITAL SIGNS: Temperature 100.4, which is his maximum temperature (T-max), pulse 99, respiratory rate 17, blood pressure 154/67, with a mean arterial pressure (MAP) of 96. SpO2 99% on FiO2 of 0.250. HEENT: Anicteric, pupils approximately 1 mm and reactive. Nares: Patent bilaterally. Moist mucosa. Oropharynx moist mucosa. Endotracheal (ET) tube and orogastric (OG) tube in place. NECK: Supple, without to apparent jugular venous distention (JVD) . No thyromegaly or masses, trachea is midline. LYMPHATICS: Without cervical or supraclavicular lymphadenopathy. LUNGS: Symmetric excursion, good air entry, no wheeze, rhonchi or crackle on tidal excursion. Normal Inspiratory to expiratory ratio (I:E). No accessory muscle usage or retractions. CARDIOVASCULAR: Regular rate and rhythm with a normal S1,S2. No murmur, rub or gallop appreciated. ABDOMEN: Diminished, but present bowel sounds, soft, nondistended, no hepatosplenomegaly or masses appreciated. EXTREMITIES: Warm, without clubbing, cyanosis or edema. Palpable right pedal pulses. Doppable left pedal pulses. LABORATORY DATA: Complete blood count (CBC) from this morning shows a hemoglobin of 10.6, hematocrit 31.7, platelet count 180,000, white blood cell count 17,400. Chemistry shows sodium 134, potassium 4.9, chloride 98, bicarbonate 26, anion gap 10, BUN 43, creatinine 7.6, glucose 129, calcium 9.1, phosphorus 6.8, magnesium 2.2. Yesterday's intake and output (I and O) showed 638 and 760 out making a negative 122. Thus far today, 132 and 5 out, making a positive 127. I reviewed his chest x-ray as well as the report from earlier today. That showed normal-appearing cardiac silhouette and pulmonary vascular shadows. No consolidated regions. Shallow inspiration. ET tube in good position. IMPRESSION: 1. Out of hospital cardiac arrest leading to mechanical ventilation. 2. End-stage renal disease, on dialysis. 3. Diabetes mellitus, on sliding scale insulin. 4. Hypertension, on Cardene if needed, with a goal blood pressure 150-160. 5. Congenital blindness and mutism. 6. History of pontine cerebrovascular accident (CVA) 12/2018. 7. Patent foramen. 8. Deep venous thrombosis (DVT) prophylaxis and stress ulcer prophylaxis in place. 9. Nutrition, nothing by mouth. 10. Elevated WBC, thus far no evidence of an infection. Not on antibiotics. RECOMMENDATIONS: 1. Will continue to hold sedation unless necessary. 2. Will obtain an MRI today. 3. Neurology consult. 4. After the MRI, we will start tube feeds. 5. It has come to our attention this morning that there are old records at [facility]. It is not known why he was given a different medical record on admission. I have reviewed the reports of the previous imaging he had done in December 2018, which included an MRI, which showed an acute infarction of the left chele, measuring 8 x 88 mm, an MRA without contrast, which showed no acute abnormality, and a carotid artery MRI without contrast which was unremarkable. 6. Will send a procalcitonin. Will also add a CRP and erythrocyte sedimentation rate to his morning labs. At this time, I do not plan to start antibiotics, as we have no focus of infection. I will continue to monitor results and would consider that, should he clinically change or a site of infection become apparent. 7. I have updated his mother, who was present in the room. Critical care time 40 minutes, not including procedure time. ANASTASIA
--- NOTE | 2019-03-22 17:56 | REPVR ---
PROCEDURE INFORMATION: Exam: MR Head Without Contrast Exam date and time: 03/22/2019 5:15 PM Age: 48 years old Clinical indication: Alteration of consciousness and altered mental status/memory loss and coma or unconsciousness; Other: PT complete callapsed and performed cpr; Confusion or disorientation; Patient HX: At dialysis on PT stood up afterwards and collapsed. They had to do cpr , he went into cardiac arrest PT is non responsive; Additional info: Cardiac arrest; Altered mental status TECHNIQUE: Imaging protocol: MR of the head without contrast. COMPARISON: CT Head without contrast 03/21/2019 1:16 PM FINDINGS: Ventricles demonstrate normal size and configuration. Major vascular flow voids at the skull base are preserved. No extra-axial fluid collection. Nonspecific white matter gliosis, probable chronic microvascular ischemia. There is encephalomalacia centered at the chele. There are multiple foci of diffusion restriction involving the bilateral frontal lobes, bilateral parietal lobes, bilateral occipital lobes and the right temporal lobe. Largest focus at the left frontal lobe measures up to 2.8 centimetres. There is associated T2 prolongation and mild edema. There are chronic lacunar infarcts involving the thalami. Scattered small foci of susceptibility likely secondary to prior microhemorrhage. Mild paranasal sinus disease. Minimal fluid signal involving the left mastoid air cells. IMPRESSION: Multiple foci of bilateral acute to early subacute (likely early subacute) ischemic infarction as above. Suspect embolic etiology. Electronically signed by: Anurag Taylor On 03/22/2019 17:56:09 PM
--- NOTE | 2019-03-22 17:59 | REPVR ---
PROCEDURE INFORMATION: Exam: MR Angiogram Head Without Contrast, Arteries Exam date and time: 03/22/2019 5:15 PM Age: 48 years old Clinical indication: Cognitive deficit and other: Non responsive; Other symptoms involving cognitive function; Patient HX: At dialysis on PT stood up afterwards and collapsed. They had to do cpr , he went into cardiac arrest. PT is non responsive; Additional info: S/P cardiac arrest; AMS TECHNIQUE: Imaging protocol: MR angiogram head without contrast. Exam focused on the arteries. 3D rendering: MIP and/or 3D reconstructed images were created by the technologist. COMPARISON: CT Head without contrast 03/21/2019 1:16 PM FINDINGS: Right internal carotid artery: Unremarkable. Intracranial segment is patent with no significant stenosis. No aneurysm. Right anterior cerebral artery: Unremarkable. No occlusion or significant stenosis. No aneurysm. Right middle cerebral artery: Unremarkable. No occlusion or significant stenosis. No aneurysm. Right posterior cerebral artery: Unremarkable. No occlusion or significant stenosis. No aneurysm. Right vertebral artery: Unremarkable. No occlusion or significant stenosis. No aneurysm. Left internal carotid artery: Unremarkable. Intracranial segment is patent with no significant stenosis. No aneurysm. Left anterior cerebral artery: Unremarkable. No occlusion or significant stenosis. No aneurysm. Left middle cerebral artery: Unremarkable. No occlusion or significant stenosis. No aneurysm. Left posterior cerebral artery: Unremarkable. No occlusion or significant stenosis. No aneurysm. Left vertebral artery: Unremarkable. No occlusion or significant stenosis. No aneurysm. Basilar artery: Focus of decreased signal at the proximal aspect the basilar artery corresponds to prominent calcification on CT examination. IMPRESSION: 1. No large vessel occlusion. 2. Signal void involving the proximal aspect of the basilar artery corresponds to prominent calcification on CT. Electronically signed by: Anurag Taylor On 03/22/2019 17:59:18 PM
[2019-03-22] MEDS ORDERED: NOREPINEPHRINE BITARTRATE 8 MG in D5W 492 ML IV SCH (22:30)
[2019-03-22] MEDS ORDERED: HEPARIN 1,000 UNITS/ML 10ML VIAL (FOR RADIOLOGY& DIALYSIS ONLY)(J1644-10) IV PRN ×2 (22:30)
[2019-03-23] VITALS (45 sets, daily range): BP systolic 125–180; BP diastolic 57–79; O2SAT 97
[2019-03-23] MEDS: HumaLOG INSULIN (NovoLOG) PER UNIT SC SCH ×5 (00:29→23:58)
[2019-03-23] MEDS: HEPARIN SOD (PORCINE) 5000 UNITS/ML VIAL (J1644 PER 1000UNITS) SC SCH ×3 (05:37→21:42)
--- NOTE | 2019-03-23 05:43 | REPVR ---
PROCEDURE INFORMATION: Exam: CT Head Without Contrast Exam date and time: 03/23/19 (5:06am) Age: 48 years old Clinical indication: Multiple embolic strokes. TECHNIQUE: Imaging protocol: Computed tomography of the head without contrast. Radiation optimization: All CT scans at this facility use at least one of these dose optimization techniques: automated exposure control; mA and/or kV adjustment per patient size (includes targeted exams where dose is matched to clinical indication); or iterative reconstruction. COMPARISON: CT HEAD of 03/21/19 FINDINGS: Brain: Unremarkable. No acute hemorrhage. Unremarkable white matter. No mass effect. Ventricles: Normal. No ventriculomegaly. Bones/joints: Unremarkable. No acute fracture. Sinuses: Bilateral ethmoid and left sphenoid sinus membrane thickening. Mastoid air cells: Visualized mastoid air cells are well aerated. Soft tissues: Unremarkable. IMPRESSION: No acute intracranial pathology is appreciated. Electronically signed by: Glenda Balderas On 03/23/2019 05:43:24 AM
[2019-03-23 06:32] LABS: BASO # 0.1 10^3/uL (0.0-0.2); BASO % 0.5 % (0.0-1.0); EOS # 0.4 10^3/uL (0.0-0.5); EOS % 2.8 % (0.0-3.0); HEMATOCRIT 27.9 % (42.0-52.0); HEMOGLOBIN 9.3 g/dl (13.5-17.5); LYMPH # 2.6 10^3/uL (1.5-5.0); LYMPH % 19.5 % (24.0-44.0); MEAN CORPUSCULAR HEMOGLOBIN 31.5 pg (27.0-33.0); MEAN CORPUSCULAR HGB CONC 33.3 g/dl (32.0-36.5); MEAN CORPUSCULAR VOLUME 94.6 fl (80.0-96.0); MONO # 1.3 10^3/uL (0.0-0.8); MONO % 9.7 % (0.0-5.0); NEUTROPHILS # 8.8 10^3/uL (1.5-8.5); NEUTROPHILS % 66.8 % (36.0-66.0); PLATELET COUNT, AUTOMATED 169 10^3/uL (150-450); RED BLOOD COUNT 2.95 10^6/uL (4.30-6.10); WHITE BLOOD COUNT 13.2 10^3/uL (4.0-10.0)
[2019-03-23 07:00] LABS: ALBUMIN 2.7 GM/DL (3.2-5.2); BILIRUBIN,TOTAL 0.4 MG/DL (0.2-1.0); CALCIUM LEVEL 8.8 MG/DL (8.5-10.1); CREATININE FOR GFR 10.1 MG/DL (0.70-1.30); GLOMERULAR FILTRATION RATE 5.9 (>60); PHOSPHORUS LEVEL 8.1 MG/DL (2.5-4.9); POTASSIUM SERUM 4.2 MEQ/L (3.5-5.1); TOTAL PROTEIN 7.3 GM/DL (6.4-8.2)
[2019-03-23] MEDS: CHLORHEXIDINE GLUCONATE 0.12 % 15ML UDC (PERIDEX ORAL RINSE) MT SCH ×2 (08:58→20:47)
[2019-03-23] MEDS: LACRILUBE (AKWA TEARS) OPHTH OINT 3.5 GM OU SCH ×3 (08:59→20:47)
[2019-03-23] MEDS: PANTOPRAZOLE 40MG INJ (PROTONIX) (C9113) IV SCH (08:59)
--- NOTE | 2019-03-23 09:24 | REP ---
Clinical: Status post intubation. Comparison: 03/22/2019. Findings: Endotracheal tube, nasogastric tube, and double-lumen dialysis catheter are in stable, satisfactory position. Mediastinum and cardiac silhouette are stable and within normal limits. Subtle left basilar atelectasis cannot be excluded. No discrete focal consolidation or obvious effusion. No pneumothorax. Skeletal structures are intact. Impression: 1. Lines and tubes in stable satisfactory position. 2. Subtle left basilar atelectasis cannot be excluded. Electronically Signed by Shady Umaña MD 03/23/2019 09:16 A
--- NOTE | 2019-03-23 09:46 | IPN ---
DATE OF SERVICE: 03/22/2019 SUBJECTIVE: Jayant is seen and examined this morning at the bedside in the intensive care unit. He remains intubated and off sedation. Has been unresponsive and unarousable. He was dialyzed yesterday with only 700 mL of fluid removed. Nursing staff reports no significant overnight events. He is pending MRI brain and neurology evaluation. Temperature 99.5, pulse 80, respiratory rate 18, blood pressure 143/67, saturating 96% on 25% FIO2. Intake yesterday was 640. Dialysis removed 700. Weight in the bed scale today is 118.4. Kg. General: The patient is seen lying in bed. Head of the bed elevated. Intubated. Not on any sedation. Does not respond to verbal, tactile stimulus nor make eye contact. Mother present at the bedside, and she reports he has not interacted with her either. Endotracheal tube and orogastric (OG) tube in place. Neck is supple. No jugular venous distention. Tunneled hemodialysis catheter present in the right chest wall. Lungs show symmetric air entry. No crackle, rale, or rhonchus. Cardiac: S1, S2. No dependent edema nor peripheral edema. Abdomen is soft. There are occasional bowel sounds. Genitourinary: Shows [place] catheter with minimal urine. Extremities are negative for edema and are warm. Radial pulses is palpable. LABORATORIES: White count 17.4, hemoglobin 10.6, platelet 180. Sodium 134, potassium 4.9, bicarbonate 26, magnesium 2.2, CRP 21.7. Chest x-ray today. Decreased opacity left lower lung. Brain MRA: No large vessel occlusion. Brain MRI: Multiple foci of bilateral acute to early subacute ischemic infarction, suspect embolic etiology. INPATIENT MEDICATIONS: Reviewed by me. His insulin was adjusted by the primary team. Otherwise, there have been no medication changes. PROBLEMS: 1. End-stage renal disease, on hemodialysis. The patient was dialyzed yesterday with around 700 mL of fluid removed without any issues. His next dialysis will be on Sunday. His electrolytes, volume status, and acid base status are all acceptable. 2. Status post cardiac arrest with ventilator-dependent respiratory failure and decreased mentation. Minimal fio2 requirements. Vent management per [employer] Strategy Associate. He is status post hypothermia protocol. He has been off sedation but has been poorly responsive. He had MRI, MRA which shows acute/subacute infarct, likely embolic in nature. Neurology to see him. He has known history of PFO. 3. Acute multiple embolic strokes. BP targets as per Neurology. s/p hypothermia protocol. Off sedation. Poorly responsive. MTDD
--- NOTE | 2019-03-23 13:31 | CCN ---
DATE OF SERVICE: 03/23/2019 NOTE: Mr. Maciel remains critically ill with acute respiratory failure status post out of hospital cardiac arrest. He remained hemodynamically stable last evening. He has been off nicardipine. Because of a goal of keeping his systolic blood pressure above 140, he was on Levophed for 5 hours last evening. He has not made any purposeful movements. He is opening his eyes spontaneously but not tracking. Unfortunately, his MRI yesterday showed multiple bilateral acute to subacute ischemic infarct favoring embolic etiology. The largest of those was 2.8 cm in the left frontal region. He is tolerating tube feeds. OBJECTIVE: PHYSICAL EXAMINATION: General: Mr. Maciel is lying in bed in no acute distress. He is overbreathing the ventilator set rate. He often will have two breaths interval, although they are not stacking, followed by they often trigger two breaths in rapid succession, but they are not stacking. Vital signs: Temperature 99.9 with a maximum temperature (Tmax) of 100.9, respiratory rate 16-17, pulse 88, blood pressure 152/70 with a mean arterial pressure (MAP) of 100. SpO2 98% on FIO2 of 0.25. HEENT: Anicteric. Pupils 2 mm and reactive. Nares: Patent bilaterally. Moist mucosa. Oropharynx: Endotracheal (ET) tube and orogastric (OG) tube in place. Moist mucosa. Neck supple and without thyromegaly or masses. Trachea is midline. No appreciable jugular venous distention (JVD). Lungs: Symmetric excursion, good air entry. No wheeze, rhonchi, or crackle on tidal excursion. Normal I:D. No accessory muscle usage or retractions. Cardiovascular: Regular rate and rhythm with a normal S1, S2, no murmur, rub, or gallop appreciated. Abdomen: Diminished but present bowel sounds, soft, nondistended, no hepatosplenomegaly or masses appreciated. Extremities: Without clubbing, cyanosis, or edema. Palpable pedal pulse on the right. Dopperable pedal pulses on the left. LABORATORY DATA: Complete blood count (CBC) shows a hemoglobin 9.3, hematocrit 27.9, platelet count 169,000, white blood cell count 13,200 with a differential, 67% neutrophils, 20% lymphocytes, and 10% monocytes. Chemistries show sodium 134, potassium 4.2, chloride 98, bicarbonate 23, anion gap 13, BUN 68, creatinine 10.10, glucose 125, calcium 8.8, phosphorus 8.1, total bilirubin 0.4, AST 16, ALT 25, alkaline phosphatase 86, LDH 163, CK 292, total protein 7.3, albumin 2.7, CRP 21.7, procalcitonin 5.63, ESR 91. Yesterday's intake and output (I and O) were 382 in and 15 out making him positive 367. Thus far today, 916 in and 20 out making him positive 896. Weight 119 kg. I reviewed his chest x-ray from earlier today, as well as the report. That study shows a normal-appearing cardiac silhouette and pulmonary vascular shadows. ET tube in good position, no consolidated regions. Shallow inspiration. IMPRESSION: 1. Out of hospital cardiac arrest leading to respiratory failure and mechanical ventilation. 2. 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 He has a known PFO and question if this may have occurred when he had cardiopulmonary resuscitation (CPR) secondary to possible clots on the flap. 3. End-stage renal disease. Schedule for dialysis tomorrow. 4. Diabetes mellitus, on sliding scale insulin. 5. Hypertension, on Cardene when needed with a blood pressure goal of 150-160. 6. Congenital blindness and mutism. 7. Patent foramen ovale. 8. Obstructive sleep apnea (GIUSEPPE). 9. Deep venous thrombosis (DVT) prophylaxis/ulcer prophylaxis in place. 10. Nutrition, tolerating full tube feeds. 11. Elevated white blood cell (WBC), C-reactive protein (CRP), erythrocyte sedimentation rate (ESR), and procalcitonin. While these markers can be elevated in infection, they could also be elevated because of his cardiac arrest and do not necessarily represent infection. RECOMMENDATIONS: 1. Will continue full support. 2. Will change to Nepro feedings. 3. In regard to his elevated inflammatory markers, he has no source of infection; and, keira fact, his WBC count has trended down; so will not start antibiotics at the present time. If information is forthcoming that would suggest an infection, would start them at that time. Rather, will repeat the inflammatory markers tomorrow. 4. Await neurology input regarding his strokes that are likely embolic in nature. We had discussed this last night and no anticoagulation at this time. 5. At the present time, will continue to use Cardene if his blood pressure is elevated to keep his SBP 150-160 range. Will clarify with neurology whether we need to continue to keep his SBP greater than 140 now that he is over 48 hours out from his cerebrovascular accidents (CVAs). Need to clarify blood pressure goals. 6. Given his history of GIUSEPPE, may need a tracheostomy (though not likely a ventilator) as it is anticipated the recovery from these insults may be very long. 7. I have updated his and mother on the findings. Critical care time 40 minutes not including procedure time. ANASTASIA
[2019-03-23 14:53] LABS: ABG HCO3 24.3 MEQ/L (22.0-26.0); ABG O2 SATURATION 93.9 % (95.0-99.0); ABG PARTIAL PRESSURE CO2 43.1 mmHg (35.0-45.0); ABG PARTIAL PRESSURE O2 72.9 mmHg (75.0-100.0); ABG STANDARD HCO3 23.6 MEQ/L (22.0-26.0); ABG TOTAL CO2 25.6 MEQ/L (22.0-29.0); ABG pH (ARTERIAL) 7.369 UNITS (7.350-7.450)
[2019-03-23] MEDS: ACETAMINOPHEN 325 MG/10.15 ML UDC GT PRN ×2 (17:29→23:59)
[2019-03-23] MEDS ORDERED: ISOVUE-370 76% 100ML VIAL (Q9967) As Ordered ONE (17:37)
[2019-03-23] MEDS: ASPIRIN 81 MG CHEW TABLET GT SCH (18:12)
--- NOTE | 2019-03-23 19:19 | REPVR ---
PROCEDURE INFORMATION: Exam: CT Angiography Chest With Contrast Exam date and time: 03/23/2019 5:47 PM Age: 48 years old Clinical indication: Abnormal findings; Other: Embolic strokes TECHNIQUE: Imaging protocol: Computed tomographic angiography of the chest with intravenous contrast. 3D rendering: MIP and/or 3D reconstructed images were created by the technologist. Radiation optimization: All CT scans at this facility use at least one of these dose optimization techniques: automated exposure control; mA and/or kV adjustment per patient size (includes targeted exams where dose is matched to clinical indication); or iterative reconstruction. Contrast material: ISOVUE 370; Contrast volume: 75 ml; Contrast route: IV; COMPARISON: CR PORTABLE CHEST X-RAY 03/23/2019 6:56 AM FINDINGS: Tubes, catheters and devices: Endotracheal tube with its tip above the fam. Nasogastric tube is seen with its tip in the stomach. Pulmonary arteries: Normal. No pulmonary emboli. Aorta: Unremarkable. No aortic aneurysm. No aortic dissection. Lungs: Unremarkable. No consolidation. No masses. Pleural space: Small left pleural effusion with the left basilar atelectasis. Heart: Unremarkable. No cardiomegaly. No pericardial effusion. Gallbladder and bile ducts: Layering of hyperdense material in the gallbladder which may represent hyperdense sludge versus calculi. Stomach and bowel: Evidence of prior gastric surgery. Lymph nodes: Unremarkable. No enlarged lymph nodes. Bones/joints: Unremarkable. No acute fracture. Soft tissues: Unremarkable. IMPRESSION: No evidence for pulmonary embolism. Small left pleural effusion with left basilar atelectasis. Gallbladder sludge/calculi. Electronically signed by: Sukhwinder Blanchard On 03/23/2019 19:18:54 PM
[2019-03-23] MEDS: niCARdipine IV 40 MG in IV 1 EA IV SCH ×2 (19:26→22:45)
[2019-03-24] VITALS (60 sets, daily range): BP systolic 129–178; BP diastolic 56–77; O2SAT 96
[2019-03-24] MEDS: niCARdipine IV 40 MG in IV 1 EA IV SCH ×10 (01:14→22:08)
--- NOTE | 2019-03-24 02:30 | REPVR ---
PROCEDURE INFORMATION: Exam: US Duplex Lower Extremity Veins Exam date and time: 03/23/2019 2:06 AM Age: 48 years old Clinical indication: Condition or disease; Other: Embolic stroke; Additional info: Embolic strokes TECHNIQUE: Imaging protocol: Real-time duplex ultrasound of the Lower Extremities with 2-D mirza scale, color Doppler flow and spectral waveform analysis with image documentation. Complete exam focused on the bilateral lower extremity veins. COMPARISON: No relevant prior studies available. FINDINGS: Right deep veins: Unremarkable. The common femoral, femoral, proximal profunda femoral and popliteal veins are patent without thrombus. Normal Doppler waveforms. Normal compressibility and/or augmentation response. Right superficial veins: Saphenofemoral junction is patent without thrombus. Left deep veins: Unremarkable. The common femoral, femoral, proximal profunda femoral and popliteal veins are patent without thrombus. Normal Doppler waveforms. Normal compressibility and/or augmentation response. Left superficial veins: Saphenofemoral junction is patent without thrombus. Soft tissues: Unremarkable. IMPRESSION: No acute findings. No evidence of deep vein thrombosis. Electronically signed by: Jayant Sweeney On 03/24/2019 02:29:41 AM
--- NOTE | 2019-03-24 02:30 | REPVR ---
PROCEDURE INFORMATION: Exam: US Duplex Upper Extremity Veins Exam date and time: 03/23/2019 2:06 AM Age: 48 years old Clinical indication: Condition or disease; Other: Embolic stroke TECHNIQUE: Imaging protocol: Real-time Duplex ultrasound of the Upper Extremities with 2-D mirza scale, color Doppler flow and spectral waveform analysis with image documentation. Complete exam focused on the bilateral upper extremity veins. COMPARISON: No relevant prior studies available. FINDINGS: Right deep veins: Unremarkable. Axillary and brachial veins are patent throughout without thrombus. Normal Doppler waveforms. Normal compressibility and/or augmentation response. Visualized internal jugular and subclavian veins are patent. Right superficial veins: Unremarkable. Visualized cephalic and basilic veins are patent without thrombus. Left deep veins: Unremarkable. Axillary and brachial veins are patent throughout without thrombus. Normal Doppler waveforms. Normal compressibility and/or augmentation response. Visualized internal jugular and subclavian veins are patent. Left superficial veins: Unremarkable. Visualized cephalic and basilic veins are patent without thrombus. Soft tissues: Unremarkable. IMPRESSION: No acute findings. No evidence of deep vein thrombosis. Electronically signed by: Jayant Sweeney On 03/24/2019 02:30:14 AM
[2019-03-24 04:29] LABS: BASO # 0.1 10^3/uL (0.0-0.2); BASO % 0.4 % (0.0-1.0); EOS # 0.3 10^3/uL (0.0-0.5); EOS % 1.8 % (0.0-3.0); HEMATOCRIT 26.9 % (42.0-52.0); LYMPH # 1.5 10^3/uL (1.5-5.0); LYMPH % 10.6 % (24.0-44.0); MEAN CORPUSCULAR HEMOGLOBIN 31.3 pg (27.0-33.0); MEAN CORPUSCULAR HGB CONC 33.5 g/dl (32.0-36.5); MEAN CORPUSCULAR VOLUME 93.4 fl (80.0-96.0); MONO # 1.5 10^3/uL (0.0-0.8); MONO % 10.3 % (0.0-5.0); NEUTROPHILS # 10.9 10^3/uL (1.5-8.5); NEUTROPHILS % 76.1 % (36.0-66.0); PLATELET COUNT, AUTOMATED 192 10^3/uL (150-450); RED BLOOD COUNT 2.88 10^6/uL (4.30-6.10); WHITE BLOOD COUNT 14.3 10^3/uL (4.0-10.0)
[2019-03-24 04:54] LABS: ALBUMIN 2.4 GM/DL (3.2-5.2); BILIRUBIN,TOTAL 0.4 MG/DL (0.2-1.0); C REACTIVE PROTEIN QUANTITATIV 21.3 MG/DL (0.00-0.30); CALCIUM LEVEL 8.6 MG/DL (8.5-10.1); CREATININE FOR GFR 11.7 MG/DL (0.70-1.30); MAGNESIUM LEVEL 2.8 MG/DL (1.8-2.4); PHOSPHORUS LEVEL 8.7 MG/DL (2.5-4.9); POTASSIUM SERUM 5.1 MEQ/L (3.5-5.1); TOTAL PROTEIN 7.5 GM/DL (6.4-8.2)
[2019-03-24 04:57] LABS: ERYTHROCYTE SEDIMENTATION RATE 127 mm/hr (0-15)
[2019-03-24 05:50] LABS: ABG BASE EXCESS -5.6 (-2.0-2.0); ABG HCO3 19.6 MEQ/L (22.0-26.0); ABG O2 SATURATION 96.8 % (95.0-99.0); ABG PARTIAL PRESSURE CO2 37.1 mmHg (35.0-45.0); ABG STANDARD HCO3 19.8 MEQ/L (22.0-26.0); ABG TOTAL CO2 20.8 MEQ/L (22.0-29.0); ABG pH (ARTERIAL) 7.341 UNITS (7.350-7.450)
[2019-03-24] MEDS: HumaLOG INSULIN (NovoLOG) PER UNIT SC SCH ×3 (05:50→17:39)
[2019-03-24] MEDS: HEPARIN SOD (PORCINE) 5000 UNITS/ML VIAL (J1644 PER 1000UNITS) SC SCH ×3 (05:50→20:58)
[2019-03-24] MEDS: PANTOPRAZOLE 40MG INJ (PROTONIX) (C9113) IV SCH (05:50)
[2019-03-24] MEDS: ASPIRIN 81 MG CHEW TABLET GT SCH (05:50)
--- NOTE | 2019-03-24 08:33 | REP ---
Clinical: Intubation. Comparison: 03/23/2019. Findings: Endotracheal tube, nasogastric tube, and double-lumen dialysis catheter are in satisfactory stable position. Mediastinum and cardiac silhouette are stable with mild cardiomegaly again suggested. Lung laboy are stable. Subtle basilar opacities (left greater than right) are again suspected. No new acute process identified. Skeletal structures are stable. Impression: Stable chest x-ray. No new acute process appreciated. Electronically Signed by Shady Umaña MD 03/24/2019 08:24 A
[2019-03-24] MEDS ORDERED: CARVedilol 6.25 MG TAB PO SCH (09:00)
[2019-03-24] MEDS: CHLORHEXIDINE GLUCONATE 0.12 % 15ML UDC (PERIDEX ORAL RINSE) MT SCH ×2 (09:14→20:58)
[2019-03-24] MEDS: LACRILUBE (AKWA TEARS) OPHTH OINT 3.5 GM OU SCH ×3 (09:14→21:01)
[2019-03-24] MEDS: MORPHINE 2 MG/ML 1ML VIAL (J2270) IV PRN ×4 (09:19→21:00)
--- NOTE | 2019-03-24 09:51 | CCN ---
DATE: 03/24/2019 START TIME: 0825 hours STOP TIME: 0912 hours I attended Jayant Maciel in the intensive care unit (ICU). The patient was examined, chart reviewed, and I spoke at length at the bedside with the nurse involved in his care, as well as his mother. Overnight he remained on nicardipine drip. Blood pressures have ranged from 129 to 178 systolic. Heart rate generally in the 80s to 90s with a sinus mechanism. Respiratory rate generally in the low 20s without accessory muscle use. Maximum temperature (t-max) overnight 100.4. He remains dialysis dependent. Most recent laboratories show a white blood cell count of 14.3, procalcitonin is still pending. Hemoglobin 9.0, platelet count 192,000, 76% segmented neutrophils, no bands. Sodium 131, potassium 5.1, chloride 96, CO2 of 21, BUN 91, creatinine 11.7, glucose 283. Blood gas done on a rate of 14, tidal volume 430, PEEP of 5, and FiO2 of 21% shows a pH of 7.341, pCO2 of 37.1, and a pO2 of 101. Chest x-ray does show vascular congestion. He is due for dialysis today. No new infiltrates. Lines and tubes in good position. PHYSICAL EXAMINATION: He does open his eyes spontaneously. It is not absolutely convincing that he tracks all movements in the room. At baseline, he is deaf and mute. Pupils do react but they are sluggish. He does have corneals. He has a good cough and gag. He does overbreathe the ventilator. Trachea is in the midline. Chest shows some faint dependent crackles in the early inspiratory phase. Otherwise, fairly clear. Expansion is symmetric. Tactile fremitus is palpable. Cardiac: Exam is regular without any gallops. Peripheral pulses are palpable. Minimal edema. Abdomen: Obese, soft and nontender. Hypoactive bowel sounds. No convincing organomegaly or masses. Extremities: Show no cyanosis or clubbing. Neurologic: He is not able to follow any commands as he is deaf. There is a question whether his visual status is intact. He remains without movement of the lower extremities. The most pressing problems requiring my presence at the bedside are: 1. Respiratory failure requiring mechanical ventilatory support. 2. Status post cardiac arrest. 3. Multiple CVAs. 4. Obstructive sleep apnea. 5. Patent foramen ovale. 6. Chronic renal failure, dialysis dependent. At this point, he does overbreathe the ventilator. He is due for dialysis today, so we do not plan on extubation, but we will change him to a more standard mode of ventilation in hopes of pushing some element of weaning. I had a long discussion at bedside with his mother. He is known to have obstructive sleep apnea, but he is completely noncompliant with his CPAP at home. I did discuss with her that this will be a significant issue post extubation, especially in view of his altered mental status. His is his healthcare proxy and we will need to have that discussion after extubation, as my concern is that if his mental status does not improve and he is not able to wear or not tolerant of CPAP then the only other option would be tracheostomy. I await the final decision from neurology. He remains off full anticoagulation due to the risk of bleeding. He is tolerating enteral feeds. Regarding his blood pressure, we will restart his oral antihypertensives since he is tolerating enteral feeds in hopes of being able to wean his nicardipine drip. In view of the above, he remains quite critically ill. His prognosis remains guarded at best. His complication is complicated, to say the least. I left the bedside at 0912 hours. 47 minutes of critical care time was delivered at the bedside, not including procedures.
[2019-03-24] MEDS: BISACODYL 10 MG SUPP PR PRN (10:02)
--- NOTE | 2019-03-24 10:04 | CR ---
DATE OF CONSULTATION: 03/24/2019 REFERRING PROVIDER: Dr. Asael Lemons REASON FOR CONSULTATION: Ischemic stroke, suspected anoxic injury post cardiac arrest. The patient is a 48-year-old male with known past medical history for hypertension, end-stage renal disease on hemodialysis history of diabetes with prior history of pontine stroke in December 2018 measuring about 8 mm in size on the right side with associated known patent foramen ovale (PFO). The patient has been on 81 mg aspirin therapy daily under the direction of his residential roofer helper Dr. Jayant Smith. The patient was seen by doctors at [facility] who recommended against closure of PFO and rather recommended implantation of loop recorder to assess for possible atrial fibrillation causing the patient's embolic strokes. The patient was at hemodialysis on 03/19/2019 when he suddenly collapsed after dialysis and went into pulseless electrical activity of the heart. The patient was given CPR for approximately 10 minutes. He could not be intubated on seen and had to be intubated in the hospital. He had a laryngeal mask airway placed on his transfer from the outside facility to the hospital. Initial head CT was negative. Three days later MRI of the brain revealed multiple ischemic strokes involving bilateral frontal, parietal, occipital and right temporal lobes with the largest measuring 2.8 cm in size associated with full ligation mild edema as reported by reading radiologist. The patient had chronic thalamic strokes and chronic right pontine stroke. Some of these strokes were acute and some of these strokes were subacute suggesting that prior to the patient's cardiac arrest he likely had ischemic strokes within the past couple weeks. In the prior admission in December 2018 it was nephrology's thought that he the patient may be possibly having emboli from his vascular catheter for dialysis. The patient has no clinical signs of pulmonary embolism which would be suspected if the patient were to be throwing clots from that particular catheter site. Nonetheless, we will go ahead and recommend ultrasounds of the upper extremities to rule out any deep venous thromboses (DVTs) and lower extremities as well as CT angiography with dye coordinated with dialysis to assess for any pulmonary embolism. If all of that workup is negative it is plausible that the patient's strokes are embolic from the PFO itself or from hypothesized atrial fibrillation. The patient may require anticoagulation. The patient is noted to be uremic as per the critical care team with a BUN of 68. He is at a higher risk of bleeding. GRE sequences of the MRI brain have already revealed a few areas of scattered chronic micro hemorrhages. Some hemorrhages measuring greater than 3 mm in diameter. The patient is presently off sedation for few days. He is unable to demonstrate purposeful movements for the first initial days, however, this evening he was able to demonstrate purposeful movements open his head and face away from noxious stimuli. The patient's cranial nerve function is preserved including corneal reflex, doll's eye reflex, gag reflex. The patient activates facial muscles when given noxious stimuli to the nostrils. The patient was able to tract somewhat consistently this evening, however he does not blink to threat. He has poor vision in his left eye from his known diabetes. His right eye is also affected from his diabetes. His pupils are 1.5 to 2 mm in size and are extremely sluggish and this may be secondary to the patient's known autonomic dysfunction with his diabetes. He does not withdraw to noxious stimuli in all four extremities. The right upper extremity appears to shake with a fine tremor intermittently. His fingers appear to be in a flexed position. Babinski signs have been mute. Tone is slightly increased in the upper extremities and normal in the lower extremities. PAST MEDICAL HISTORY: Type 2 diabetes, end-stage renal disease on hemodialysis, hypertension, obstructive sleep apnea, congenital deafness, patient can vocalize some sounds, the patient has difficulty seeing due to his diabetic retinopathy. Next, status post right pontine ischemic stroke December 2018. Status post gastric bypass surgery. Status post ligation of arteriovenous fistula. History of patent foramen ovale. ALLERGIES: PENICILLIN, BACITRACIN, NEOMYCIN, POLYMYXIN B. MEDICATIONS ON ADMISSION: - amlodipine - aspirin 81 mg - Carvedilol - clonidine - Aisha-Samantha - glipizide - hydralazine - Vascepa - NovoLog - Levemir - pantoprazole - rosuvastatin - sertraline - Velphoro SOCIAL HISTORY: Unobtainable. FAMILY HISTORY: Unobtainable due to the patient's current medical state. PHYSICAL EXAMINATION: Current height is 6 feet 3 inches. Current weight 119 kg, temperature is 99.9 degrees Fahrenheit, pulse rate 89, respiratory rate is 21, blood pressure 152/70, 92% oxygen saturation on 25% FIO2. The patient he is able to open his eyes to tactile stimuli. He is deaf so he cannot open his eyes to sound. The patient was able to track somewhat, pupils are extremely sluggish and 1.5 to 2 mm in size likely due to autonomic dysfunction. Corneal reflexes present. Doll's eyes present. Gag is present. Facial activation of muscles was present to noxious stimuli. The patient moves his head away from noxious stimuli confirming purposeful movements. Next, the patient does not have any motor function in the arms and legs which seems purposeful. The patient does not withdraw to noxious stimuli. Deep tendon reflexes are absent at the Achilles, 2+ at the patellas, 2+ at the biceps and triceps. Rest of examination unobtainable due to current medical state. ASSESSMENT: 1. 48-year-old male with multiple embolic strokes of different ages most recent embolic strokes possibly secondary to cardiopulmonary resuscitation, formation clots within the heart during 10 minutes of CPR versus PFO source. Rule out peripheral causes of embolic stroke including deep venous thrombosis and thrombosis of vascular catheter site. PLAN: 1. Obtain ultrasound upper and lower extremities. Obtain CT angiogram of the chest and coordination with dialysis. Restart aspirin 325 mg daily. Consider antegrade coagulation. Family members including and the patient's mother are to decide knowing increased risk of bleeding with anticoagulation given history of uremia and already present micro hemorrhages intracranially. The alternative would be to remain on aspirin and pursue PFO closure and a loop recorder placement. Continue supportive care. The patient is showing some positive progress and improvement. Long-term care consider tracheostomy. The patient's 's sister is a professor at in language studies for the physically handicapped and the deaf. She knows of interpreters who will be able to assist Jayant in the future to check for his ability to communicate even if that includes eye blinking alone. Case has been discussed thoroughly with Dr. Lemons who agrees with the above plan.
[2019-03-24] MEDS: **hydrALAZINE** 50 MG TAB PO SCH ×2 (10:05→14:59)
[2019-03-24 10:29] LABS: ABG BASE EXCESS -2.6 (-2.0-2.0); ABG HCO3 22.1 MEQ/L (22.0-26.0); ABG O2 SATURATION 98.4 % (95.0-99.0); ABG PARTIAL PRESSURE CO2 37.9 mmHg (35.0-45.0); ABG PARTIAL PRESSURE O2 141.7 mmHg (75.0-100.0); ABG STANDARD HCO3 22.3 MEQ/L (22.0-26.0); ABG TOTAL CO2 23.3 MEQ/L (22.0-29.0); ABG pH (ARTERIAL) 7.384 UNITS (7.350-7.450)
[2019-03-24] MEDS: LOSARTAN 50 MG TAB PO SCH (17:00)
--- NOTE | 2019-03-24 19:08 | IPN ---
DATE: 03/23/2019 SUBJECTIVE: Jayant is seen and examined this morning at the bedside in the intensive care unit. His mother and are present at the bedside. He remains unresponsive and is not on any sedation. He is pending evaluation with neurology. He underwent CT angiogram today, which was negative for pulmonary embolism (PE). Vital signs: Temperature 99.9, pulse 84, respiratory rate 17, blood pressure 161/72, saturating 98% on FiO2 25%. Intake and output have both been minimal. Weight in the bed scale today is 119 kg. General: The patient is seen lying in bed in the intensive care unit. Head of the bed elevated. He is breathing over the ventilator set rate. Pupils are reactive. Endotracheal tube and orogastric (OG) tube are in place. He is receiving tube feeds. Neck is supple. Jugular veins were not elevated. There is symmetric air entry. Coarse ventilator sounds. No crackle or rales. Cardiac: S1, S2, regular rate and rhythm. I am unable to appreciate murmur. Abdomen: There are hypoactive bowel sounds present. There is no distension. Genitourinary: Shelton catheter with minimal urine. Extremities are negative for clubbing, cyanosis or edema. Radial pulses palpable. Neurologic: He is unresponsive to tactile stimulus. He is a known mute. LABS: White count 13, hemoglobin 9.3, platelet 169, sodium 134, potassium 4.2. ABG: pH 7.36, pCO2 43. Blood cultures remain with no growth. CTA today was negative for PE. INPATIENT MEDICATIONS: Neurology has requested Levophed infusion, which the patient intermittently received yesterday but was off at the time of my visit this morning. He was started on aspirin 324 mg daily. Remainder of medications are unchanged from prior. PROBLEMS: 1. End-stage renal disease, on hemodialysis. The patient had a contrast study today. He is scheduled for dialysis tomorrow. I would use low blood flows in view of his acute stroke, and we will try to keep his blood pressures as stable as possible and will not plan to aggressively remove fluids. In any case, he has not had too much intake over the course of this admission 2. Multiple acute strokes in the setting of [id number] cardiac arrest. MRI noted. The patient has a known patent foramen ovale (PFO). Neurology evaluation is pending. He has been poorly responsive. 3. Hypertension. At present, neurology is giving recommendations regarding optimal blood pressure management in the setting of acute strokes. The patient has intermittently been on either nicardipine infusion or Levophed. I will defer all blood pressure management to the neurology and television anchor teams. 4. Nutrition. Suggest to change tube feeds to Nepro instead of Glucerna. Noted phosphorus level was up to 8. Will start him on a phosphorus binder through the OG tube. 5. Ventilator dependent respiratory failure, managed as per television anchor team. He has minimal FiO2 requirements. I am not planning on removing significant fluid with his hemodialysis treatment tomorrow with the interest of keeping him as hemodynamically stable as possible.
--- NOTE | 2019-03-24 19:58 | ECHO ---
DATE OF PROCEDURE: 03/24/2019 REFERRING PHYSICIAN: Dr. Lemons INDICATION: Cerebrovascular accident. Height is 190 cm, weight is 119 kg. DIMENSIONS: IVS: 1.6 LV: 4.0 LVPW: 1.7 LA: 4.2 Aorta: 3.5 IVC: 1.3 Mitral E wave velocity: 140 A-wave: 104 E prime septal: 9.5 E prime lateral: 13.6 FINDINGS: The study is of fair technical quality with challenging visualization. The patient is in sinus rhythm. Left ventricle is normal size, and it has hyperdynamic contractility. I estimate left ventricular ejection fraction (LVEF) 70%. Moderate left ventricular hypertrophy (LVH) is noted. Right ventricle was relatively poorly seen but grossly appears normal. Both atria appear normal. Aortic valve is sclerotic. It is poorly visualized, and I cannot comment on its structure. Same applies for mitral valve. There are some degenerative abnormalities but mobility of leaflets is preserved. Tricuspid valve appears normal. Pulmonic valve was not well seen. No pericardial effusion is noted. Inferior vena cava is of relatively small size, indicative of potentially low central venous pressure. Aortic root is normal. Aortic arch was not seen. Abdominal aorta appears normal. Doppler interrogation reveals competent aortic and mitral valves. There is also no significant tricuspid insufficiency and consequently I am unable to estimate pulmonary artery pressure. Mitral inflow pattern and tissue Doppler imaging of mitral annulus revealed normal diastolic function. CONCLUSIONS: 1. Study is of fair technical quality. 2. Normal left ventricular (LV) size with moderate left ventricular hypertrophy (LVH), hyperdynamic LV systolic function and probably normal diastolic function. 3. Poorly visualized aortic and mitral valves. I cannot comment on their structure but by color Doppler imaging, there is no significant stenosis or insufficiency of either valve. 4. Normal tricuspid valve. 5. Probably normal central venous pressure. 6. Unable to estimate pulmonary artery pressure. COMMENT: Subacute bacterial endocarditis (SBE) prophylaxis is not recommended. Study does not provide explanation for cerebrovascular accident. Visualization of mitral and aortic valvular structure was limited.
--- NOTE | 2019-03-24 20:40 | IPNPDOC ---
Text Note Date of Service The patient was seen on 03/24/19. NOTE This note pertains to the nephrology service with Amena Cuellar DO supervising my work. Please see E attestation below. SUBJECTIVE: Patient was seen at bedside in the intensive care unit this afternoon in the presence of his mother while undergoing hemodialysis (HD). He i s not currently receiving sedation. No additional complaints/problems have developed since yesterday. OBJECTIVE: VITALS: Please see below. GENERAL: Pt appears stated age and is lying in bed with the head of the bed elevated. HEENT: Pupils equal, round, and reactive to light. Endotracheal and orogastric (OG) tubes are in place. Neck is supple. CARDIOVASCULAR: Regular rate and rhythm. Normal S1 & S2. No murmurs, rubs, or gallops appreciated. PULMONARY: Symmetric air entry. Coarse ventilator sounds. Clear to auscultation b/l. No wheezes, rales, or rhonchi. Pt is breathing over the ventilator rate. ABDOMEN: Nondistended, soft. Bowel sounds present. GENITOURINARY: Shelton catheter present. 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 He is now responsive to tactile stimulus with some tracking. Eye movements appear somewhat purposeful. He keeps his eyes closed unless roused, and then closes them again soon after. INTAKE/OUTPUT: Pt is receiving IV fluids and tube feedings. Urine output is m inimal. 2.5L of fluid was removed via HD today. Weight in the bed scale this morning is 118.7 kg, down 0.3 kg from yesterday. LABS: WBC 14.3, hemoglobin 9.0, platelets 192, sodium 131, potassium 5.1, BUN 91, creatinine 11.7. ABG: pH 7.384, pCO2 37.9. Blood cultures showed no growth after 5 days. IMAGING: Chest x-ray, from report: "Stable chest x-ray. No new acute process appreciated." ASSESSMENT/PLAN: 1. End-stage renal disease on hemodialysis - Pt underwent hemodialysis today with 2.5L ultrafiltration. Will reassess daily for dialysis needs. Will f/u post dialysis chemistry as I note rising BUN/cr over the course of the admission and I want to make sure he is receiving adequate HD via permacath. 2. Multiple acute strokes in the setting of [id number] cardiac arrest - Responsiveness has improved. - Management as per neurology and tissue coordinator teams. 3. Hypertension - Management as per neurology and tissue coordinator teams. Fairly well controlled. No significant hypotension of hemodialysis. 4. Nutrition - Tube feeds have been changed to Nepro instead of Glucerna. 5. Ventilator dependent respiratory failure - Managed as per tissue coordinator team. Minimal fio2 requirements with acceptable volume status. VS,Fishbone, I+O VS, Fishbone, I+O Laboratory Tests 03/24/19 04:12 Vital Signs Date Time Temp Pulse Resp B/P (MAP) Pulse Ox O2 Delivery O2 Flow Rate FiO2 03/24/19 19:33 87 20 97 30 03/24/19 18:30 152/65 (93) Ventilator 03/24/19 17:52 100.2 I&O- Last 24 Hours up to 6 AM 03/24/19 06:00 Intake Total 2715 ml Output Total 74 ml Balance 2641 ml GME ATTESTATION GME ATTESTATION My faculty preceptor for this patient encounter was physically present during the encounter and was fully available. All aspects of the patient interview, examination, medical decision making process, and medical care plan development were reviewed and approved by the faculty preceptor. The faculty preceptor is aware and concurs with the plan as stated in the body of this note and will attest to such by his/her cosignature. MIKAL BIRMINGHAM OMS-III Mar 24, 2019 20:40 AMENA CUELLAR DO Apr 08, 2019 12:52
[2019-03-24] MEDS: **hydrALAZINE** 50 MG TAB NG SCH (20:59)
[2019-03-24] MEDS: CARVedilol 6.25 MG TAB NG SCH (21:00)
[2019-03-24] MEDS ORDERED: CARVedilol 6.25 MG TAB NG SCH (21:00)
[2019-03-25] VITALS (32 sets, daily range): BP systolic 127–170; BP diastolic 59–74; O2SAT 97
[2019-03-25] MEDS: HumaLOG INSULIN (NovoLOG) PER UNIT SC SCH ×4 (00:08→17:25)
[2019-03-25] MEDS: niCARdipine IV 40 MG in IV 1 EA IV SCH ×3 (01:17→06:10)
[2019-03-25 05:00] LABS: BASO # 0.1 10^3/uL (0.0-0.2); BASO % 0.4 % (0.0-1.0); EOS # 0.3 10^3/uL (0.0-0.5); EOS % 2.3 % (0.0-3.0); HEMATOCRIT 25.1 % (42.0-52.0); HEMOGLOBIN 8.5 g/dl (13.5-17.5); LYMPH # 1.8 10^3/uL (1.5-5.0); LYMPH % 15.1 % (24.0-44.0); MEAN CORPUSCULAR HEMOGLOBIN 31.6 pg (27.0-33.0); MEAN CORPUSCULAR HGB CONC 33.9 g/dl (32.0-36.5); MEAN CORPUSCULAR VOLUME 93.3 fl (80.0-96.0); MONO # 1.7 10^3/uL (0.0-0.8); MONO % 14.1 % (0.0-5.0); NEUTROPHILS # 7.9 10^3/uL (1.5-8.5); NEUTROPHILS % 66.4 % (36.0-66.0); PLATELET COUNT, AUTOMATED 188 10^3/uL (150-450); RED BLOOD COUNT 2.69 10^6/uL (4.30-6.10); WHITE BLOOD COUNT 11.9 10^3/uL (4.0-10.0)
[2019-03-25 05:57] LABS: ALBUMIN 2.2 GM/DL (3.2-5.2); BILIRUBIN,TOTAL 0.3 MG/DL (0.2-1.0); CALCIUM LEVEL 8.6 MG/DL (8.5-10.1); CREATININE FOR GFR 8.42 MG/DL (0.70-1.30); GLOMERULAR FILTRATION RATE 7.3 (>60); MAGNESIUM LEVEL 2.7 MG/DL (1.8-2.4); PHOSPHORUS LEVEL 6.6 MG/DL (2.5-4.9); POTASSIUM SERUM 4.3 MEQ/L (3.5-5.1); TOTAL PROTEIN 7.4 GM/DL (6.4-8.2)
[2019-03-25] MEDS: **hydrALAZINE** 50 MG TAB NG SCH ×3 (06:03→21:02)
[2019-03-25] MEDS: HEPARIN SOD (PORCINE) 5000 UNITS/ML VIAL (J1644 PER 1000UNITS) SC SCH ×3 (06:03→21:03)
[2019-03-25 06:11] LABS: ABG BASE EXCESS -0.6 (-2.0-2.0); ABG HCO3 23.4 MEQ/L (22.0-26.0); ABG O2 SATURATION 96.3 % (95.0-99.0); ABG PARTIAL PRESSURE CO2 35.6 mmHg (35.0-45.0); ABG PARTIAL PRESSURE O2 86.9 mmHg (75.0-100.0); ABG STANDARD HCO3 23.9 MEQ/L (22.0-26.0); ABG TOTAL CO2 24.5 MEQ/L (22.0-29.0); ABG pH (ARTERIAL) 7.435 UNITS (7.350-7.450)
--- NOTE | 2019-03-25 08:00 | REP ---
Clinical: Status post intubation. Comparison: 03/24/2019. Findings: Endotracheal tube, nasogastric tube, and double-lumen dialysis catheter in stable satisfactory position. Mediastinum and cardiac silhouette are stable/normal. Lung laboy demonstrate chronic changes with decreased basilar opacities suggesting improved aeration. No new acute consolidation or effusion. No pneumothorax. Skeletal structures are intact. Impression: Improved aeration with decreased basilar opacities suggested. Electronically Signed by Shady Umaña MD 03/25/2019 07:51 A
[2019-03-25] MEDS: PANTOPRAZOLE 40MG INJ (PROTONIX) (C9113) IV SCH (08:05)
[2019-03-25] MEDS: CHLORHEXIDINE GLUCONATE 0.12 % 15ML UDC (PERIDEX ORAL RINSE) MT SCH ×2 (08:06→20:45)
[2019-03-25] MEDS: CARVedilol 6.25 MG TAB NG SCH (08:06)
[2019-03-25] MEDS: ASPIRIN 81 MG CHEW TABLET GT SCH (08:06)
[2019-03-25] MEDS: LOSARTAN 50 MG TAB PO SCH ×2 (08:07→20:46)
[2019-03-25] MEDS: LACRILUBE (AKWA TEARS) OPHTH OINT 3.5 GM OU SCH ×3 (08:07→20:49)
[2019-03-25] MEDS ORDERED: LOSARTAN 50 MG TAB PO SCH (09:00)
--- NOTE | 2019-03-25 09:53 | CCN ---
DATE: 03/25/2019 START TIME: 0835 hours STOP TIME: 0919 hours I again attended Jayant Maciel here in the intensive care unit (ICU). The patient has been examined and chart reviewed. I spoke at length with the nurse at the bedside. I also spoke with his who is a the bedside today. T-max overnight 100.4, blood pressure 129 to 140 systolic. He is on oral antihypertensives now as we are weaning the nicardipine. Heart rate remains in the 70s. Respiratory rate 17 to low 20s. Essentially anuric. He did get dialysis yesterday. Laboratories this morning show a white blood cell count of 11.9, hemoglobin 8.5, platelet count 180,000, 68% segs, no bands. Sodium 132, potassium 4.3, chloride 96, CO2 of 27, BUN 72, creatinine 8.42, glucose 276. CK 386. Blood gas done this morning on an SIMV of 10, tidal volume 430, PEEP of 5, pressure support of 12, and FiO2 of 30% shows a pH of 7.435, pCO2 of 35.6, and PaO2 of 86.0, saturation 96.3%. Chest x-ray shows lines and tubes in good position. No significant edema noted. PHYSICAL EXAMINATION: Eyes are open much more today. I am still not absolutely convinced that he meaningfully tracks, although he seems to follow motion in the room he does not blink to confrontation. He will move his left upper extremity spontaneously, but not to stimuli. Pupils do react but are sluggish. Membranes are moist. Trachea is midline. Chest is clear to both auscultation and percussion, symmetric, no significant focal adventitious breath sounds are identified, except for some faint opening crackles dependently. Cardiac exam distant but regular. Peripheral pulses are palpable. Trace edema. Abdomen is soft. There are active bowel sounds. No convincing organomegaly or masses. Extremities show no obvious cyanosis or clubbing. Neurologically, as outlined above. He still do not spontaneously move his lower extremities. The most pressing problems requiring my presence at the bedside are: 1. Respiratory failure requiring mechanical ventilatory support. 2. Cardiac arrest after dialysis. 3. End stage renal disease on dialysis. 4. Multiple cerebrovascular accidents (CVAs). 5. Patent foramen ovale. 6. Questionable history of atrial fibrillation. I had a discussion at the bedside with is regarding whether or not he would ever want a tracheostomy should he fail extubation. He is known to have sleep apnea at home, but is completely noncompliant with CPAP. I did discuss with her that when the time comes for a trial of extubation here, he will at the very minimum likely transition to CPAP. Should her fail extubation, then the next step clearly would be tracheostomy. She said they will have to think about that. One statement was overheard that he would not want one in the future, but that needs to be worked out before the time comes. We will try him on a very low IMV rate and see how he does. He gets dialysis tomorrow. After dialysis will likely put him on straight pressure support and CPAP. He does have a good cough and gag, and my hopes is that he would be able to protect his airway, but only time will tell in that regard. At this point, he is on ulcer and deep vein thrombosis (DVT) prophylaxis. He is tolerating enteral feeds. At this point he has not required antimicrobials. Overall, he remains quite critically ill. His prognosis remains guarded, especially in view of his very significant RASPBERRY CHECKER event. Certainly this significantly hampers his ability to communicate as he was a deaf mute prior, communicating only by signing and now does not have the use of his upper extremities and we are unable to adequately assess what he is truly processing from a cognitive standpoint. At this point, we will proceed as outlined above. There is very high likelihood for further compromise. I left the bedside at 0919 hours. 44 minutes of critical care time was delivered at the bedside, not including procedures.
[2019-03-25] MEDS ORDERED: CARVedilol 12.5 MG TAB PO ONE (10:00)
[2019-03-25 10:12] LABS: ABG BASE EXCESS -1.8 (-2.0-2.0); ABG HCO3 22.4 MEQ/L (22.0-26.0); ABG O2 SATURATION 97.4 % (95.0-99.0); ABG PARTIAL PRESSURE CO2 35.2 mmHg (35.0-45.0); ABG PARTIAL PRESSURE O2 104.1 mmHg (75.0-100.0); ABG TOTAL CO2 23.5 MEQ/L (22.0-29.0); ABG pH (ARTERIAL) 7.421 UNITS (7.350-7.450)
--- NOTE | 2019-03-25 19:32 | IPNPDOC ---
Text Note Date of Service The patient was seen on 03/25/19. NOTE This note pertains to the nephrology service with Amena Cuellar DO supervising my work. Please see E attestation below. SUBJECTIVE: Patient was seen at bedside in the intensive care unit this afternoon in the presence of his . He is not currently receiving sedation. P nelida's reports that he reacted by widening his eyes when shown pictures of their children. She also states that he has been making some eye contact. No additional complaints/problems have developed since yesterday. OBJECTIVE: VITALS: Please see below. GENERAL: Pt appears stated age and is lying in bed with the head of the bed elevated. HEENT: Pupils equal, round, and reactive to light. Endotracheal and orogastric (OG) tubes are in place. Neck is supple. CARDIOVASCULAR: Regular rate and rhythm. Normal S1 & S2. No murmurs, rubs, or gallops appreciated. Minimal peripheral edema. PULMONARY: Symmetric air entry. Coarse ventilator sounds. Clear to auscultation b/l. No wheezes, rales, or rhonchi. Pt is breathing over the ventilator rate. ABDOMEN: Nondistended, soft. Bowel sounds present. GENITOURINARY: Shelton catheter present. 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 He is responsive to tactile stimuli. He will track with his eyes and rotate his head to continue tracking at the end of his visual range. Eye movements appear purposeful. He is keeping his eyes open more and looks around with apparent focus. Dialysis access: permacath R chest wall w/ dressing c/d/i INTAKE/OUTPUT: Pt is receiving IV fluids and tube feedings with a total intake of 3884 mL yesterday. Urine output is minimal. 2.5 L fluid was removed with dialysis yesterday. Weight in the bed scale this morning is 120.4 kg, up 1.7 kg from yesterday. LABS: WBC 11.9, hemoglobin 8.5, platelets 188, sodium 132, potassium 4.3, BUN 72, creatinine 8.42. ABG: pH 7.421, pCO2 35.2. ASSESSMENT/PLAN: 1. End-stage renal disease on hemodialysis - Pt will undergo hemodialysis tomorrow for 4 hours with planned fluid removal o f 3-4 kg as tolerated. - Continue to monitor electrolyte and fluid status. 2. Multiple acute strokes in the setting of [id number] cardiac arrest - Responsiveness has improved. - Management as per neurology and practicing dermatologist teams. 3. Hypertension - Stable. off nicardipene and transitioned to carvedilol, losartan, and hydralazine. Tolerating fluid removal well w/ stable hemodynamics. 4. Nutrition - Pt remains on Nepro. 5. Ventilator dependent respiratory failure - Managed as per practicing dermatologist team. Continue adequate fluid removal via HD. His intakes are significant w/ almost 3.9L in the past 24 hours due to cardene gtt and tube feeds. Rate of tube feeds was reduced and cardene has been stopped. VS,Fishbone, I+O VS, Fishbone, I+O Laboratory Tests 03/25/19 04:51 Vital Signs Date Time Temp Pulse Resp B/P (MAP) Pulse Ox O2 Delivery O2 Flow Rate FiO2 03/25/19 18:00 84 12 151/68 (98) 98 Ventilator 30 03/25/19 16:00 99.0 l I&O- Last 24 Hours up to 6 AM 03/25/19 06:00 Intake Total 3975 ml Output Total 2520 ml Balance 1455 ml GME ATTESTATION GME ATTESTATION My faculty preceptor for this patient encounter was physically present during the encounter and was fully available. All aspects of the patient interview, examination, medical decision making process, and medical care plan development were reviewed and approved by the faculty preceptor. The faculty preceptor is aware and concurs with the plan as stated in the body of this note and will at test to such by his/her cosignature. MIKAL BIRMINGHAM OMS-III Mar 25, 2019 19:21 AMENA CUELLAR DO Apr 08, 2019 13:12
--- NOTE | 2019-03-25 20:15 | ECGEPIP ---
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
[2019-03-25] MEDS: CARVedilol 12.5 MG TAB NG SCH (20:46)
[2019-03-25] MEDS: ACETAMINOPHEN 325 MG/10.15 ML UDC GT PRN (20:47)
[2019-03-26] VITALS (15 sets, daily range): BP systolic 133–178; BP diastolic 60–78
[2019-03-26] MEDS: HumaLOG INSULIN (NovoLOG) PER UNIT SC SCH ×4 (00:13→18:20)
[2019-03-26 05:19] LABS: BASO # 0.1 10^3/uL (0.0-0.2); BASO % 0.7 % (0.0-1.0); EOS # 0.4 10^3/uL (0.0-0.5); HEMOGLOBIN 8.2 g/dl (13.5-17.5); LYMPH # 1.9 10^3/uL (1.5-5.0); LYMPH % 15.9 % (24.0-44.0); MEAN CORPUSCULAR HEMOGLOBIN 30.9 pg (27.0-33.0); MEAN CORPUSCULAR HGB CONC 32.8 g/dl (32.0-36.5); MEAN CORPUSCULAR VOLUME 94.3 fl (80.0-96.0); MONO # 1.6 10^3/uL (0.0-0.8); MONO % 13.2 % (0.0-5.0); NEUTROPHILS # 7.5 10^3/uL (1.5-8.5); NEUTROPHILS % 63.5 % (36.0-66.0); PLATELET COUNT, AUTOMATED 205 10^3/uL (150-450); RED BLOOD COUNT 2.65 10^6/uL (4.30-6.10); WHITE BLOOD COUNT 11.8 10^3/uL (4.0-10.0)
[2019-03-26 05:44] LABS: ALBUMIN 2.1 GM/DL (3.2-5.2); BILIRUBIN,TOTAL 0.3 MG/DL (0.2-1.0); CALCIUM LEVEL 8.9 MG/DL (8.5-10.1); CREATININE FOR GFR 9.95 MG/DL (0.70-1.30); MAGNESIUM LEVEL 3.1 MG/DL (1.8-2.4); PHOSPHORUS LEVEL 7.7 MG/DL (2.5-4.9); POTASSIUM SERUM 4.9 MEQ/L (3.5-5.1); TOTAL PROTEIN 7.7 GM/DL (6.4-8.2)
[2019-03-26 05:59] LABS: ABG BASE EXCESS -2.1 (-2.0-2.0); ABG HCO3 22.5 MEQ/L (22.0-26.0); ABG O2 SATURATION 98.4 % (95.0-99.0); ABG PARTIAL PRESSURE O2 150.9 mmHg (75.0-100.0); ABG STANDARD HCO3 22.7 MEQ/L (22.0-26.0); ABG TOTAL CO2 23.7 MEQ/L (22.0-29.0); ABG pH (ARTERIAL) 7.391 UNITS (7.350-7.450)
[2019-03-26] MEDS: ASPIRIN 81 MG CHEW TABLET GT SCH (06:12)
[2019-03-26] MEDS: HEPARIN SOD (PORCINE) 5000 UNITS/ML VIAL (J1644 PER 1000UNITS) SC SCH ×3 (06:13→22:28)
[2019-03-26] MEDS: **hydrALAZINE** 50 MG TAB NG SCH ×3 (06:13→22:28)
[2019-03-26] MEDS: MIDAZOLAM INJ 2 MG/2 ML VIAL (J2250) IV PRN (07:53)
[2019-03-26] MEDS: CARVedilol 12.5 MG TAB NG SCH ×2 (08:27→20:08)
[2019-03-26] MEDS: LOSARTAN 50 MG TAB PO SCH ×2 (08:28→20:08)
[2019-03-26] MEDS: PANTOPRAZOLE 40MG INJ (PROTONIX) (C9113) IV SCH (08:28)
[2019-03-26] MEDS: CHLORHEXIDINE GLUCONATE 0.12 % 15ML UDC (PERIDEX ORAL RINSE) MT SCH ×2 (08:28→20:08)
[2019-03-26] MEDS: LACRILUBE (AKWA TEARS) OPHTH OINT 3.5 GM OU SCH ×3 (09:00→20:16)
--- NOTE | 2019-03-26 10:00 | CCN ---
DATE: 03/26/2019 START TIME: 824 STOP TIME: 915 I again attended Jayant Maciel here in the intensive care unit. The patient has been examined and the chart reviewed. I spoke at length with his nurses at the bedside as well as his mother. He is currently starting dialysis for his morning run. Maximum temperature (T-max) overnight 99.4, blood pressure 140/170, heart rate 70-80 with a sinus mechanism, respiratory rate 15-19. He does not make urine. He is dialysis dependent. White blood cell count 11.8, hemoglobin 8.2, platelet count 205,000, 63% segmented neutrophils, no bands. Sodium 132, potassium 4.9, chloride 95, CO2 23, BUN 104, creatinine 9.95. Blood gas done this morning on an synchronized intermittent mandatory ventilation (SIMV): Tidal volume 460, PEEP 5, pressure support of 8, FiO2 30%, SpO2 7.39, pCO2 38.0, pO2 150.9. Chest x-ray does show some mild increase in the vasculature this morning. Coags have a pT 50.7, INR 1.28, PTT 34.6. Medication list is reviewed. Sputum is a little bit more yellowish to tannish this morning. Procalcitonin was 3. Repeat sputum cultures sent. Gram stain from 03/23/2019 did show some WBCs with some gram positive cocci in pairs and clusters. PHYSICAL EXAMINATION: On exam, he is mildly diaphoretic this morning but does not appear to have respiratory distress. Pupils are sluggish. He does not tract as well this morning. Trachea is in the midline. Chest does show some occasional rhonchi that clears completely with suctioning. Expansion is symmetric. No other focal adventitious breath sounds are identified. Cardia exam distant but regular. Peripheral pulses diminished but palpable. Trace edema at best. Abdomen is soft with active bowel sounds. There is no obvious organomegaly or masses. Extremities without cyanosis or clubbing. Neurologically he still has no movement in the lower extremities. He does spontaneously move the left upper extremity but really not to stimuli. He does not appear to tract as well with eye movements today. He does have a good cough and gag. Most pressing problems requiring my presence at the bedside: 1. Respiratory failure requiring mechanical ventilatory support. 2. Multiple cerebrovascular accident (CVA) after a cardiac arrest. 3. Cardiac arrest with successful resuscitation. 4. Chronic renal failure, dialysis dependent. 5. Obstructive sleep apnea syndrome with noncompliance with CPAP. RECOMMENDATION: At this point, we will add empiric antimicrobials due to the bacteria in the sputum and his elevated procalcitonin. His white blood cell count has remained unchanged and he really does not have much in the way of a fever. From a respiratory standpoint, he is making some progress. He is on a low MV rate and his gas is acceptable. We await his dialysis today. If he looks good tomorrow morning, we will proceed with a trial of extubation. I have spoken at length with his mother in that regard. Family has not made a firm commitment regarding whether or not he would want tracheostomy but our plan would be to extubate him at least to a CPAP. My concern is intermittently, he does clench down on the endotracheal tube and are ability to communicate with him is essentially 0. At a baseline, he is a deaf-mute. There is major concern regarding, not only what he can actually see but what he processes of what he does see. This significantly limits are interaction and ability to have him follow commands after extubation. I have voiced all of these concerns to his mother who conveys understanding. He is tolerating enteral feeds. We will hold these tomorrow morning in preparation for possible extubation. He remains on ulcer and deep venous thrombosis (DVT) prophylaxis. Recommendations regarding full anticoagulation are per neurology and at this point review of the concerns over converting him to hemorrhagic strokes, he is not anticoagulated and I am in agreement with that. All in all, he remains quite critically ill. There is a very high likelihood for further compromise. I left the bedside at 0916 hours. 49 minutes of critical care time spent at the bedside not including procedures.
--- NOTE | 2019-03-26 10:05 | REP ---
PORTABLE CHEST X-RAY: Single view. HISTORY: Intubated patient. COMPARISON STUDY: March 25, 2019. FINDINGS: A right-sided central venous tunnel catheter is again noted in place unchanged. Endotracheal tube remains in good position at the level of proximal clavicles. An NG tube enters left upper quadrant. Oxygen tubing and monitoring electrodes are seen. Heart is not enlarged. No infiltrate is seen in the lung laboy. Increased markings persist behind the heart in the left base unchanged. Pleural angles are sharp. IMPRESSION: No new infiltrate. Some stable increased markings left base. Electronically Signed by Vince Daugherty MD 03/26/2019 10:53 A
[2019-03-26] MEDS ORDERED: HEPARIN 1,000 UNITS/ML 10ML VIAL (FOR RADIOLOGY& DIALYSIS ONLY)(J1644-10) XX ONE (10:45)
[2019-03-26] MEDS ORDERED: DARBEPOETIN 100 MCG/0.5 ML *DIALYSIS* SYRINGE (J0882) IV SCH (14:15)
[2019-03-26] MEDS: amLODIPine 5 MG TAB PO SCH (14:40)
[2019-03-26] MEDS: ACETAMINOPHEN 325 MG/10.15 ML UDC GT PRN (15:56)
[2019-03-26] MEDS: BISACODYL 10 MG SUPP PR PRN (15:56)
[2019-03-26] MEDS: LevoFLOXacin IV 250 MG in IV 1 EA IV SCH (15:56)
[2019-03-26] MEDS ORDERED: ONDANSETRON 4MG/2ML VIAL (J2405) IV PRN (16:45)
[2019-03-26] MEDS ORDERED: METOCLOPRAMIDE INJ 10MG/2ML VIAL (J2765) IV PRN (16:45)
--- NOTE | 2019-03-26 18:02 | IPN ---
DATE: 03/26/2019 SUBJECTIVE: Jayant is seen and examined this morning at the bedside receiving his hemodialysis treatment. He remains intubated without sedation. Family reports that he has been making eye contact intermittently. REVIEW OF SYSTEMS: Unable to obtain secondary to clinical condition. Maximal temperature 99.4, current temperature 99.1, pulse 81, respiratory rate 19, blood pressure 163/72, saturating 94-100% on 30% FiO2. Intake yesterday was 2.6 liters. Dialysis today removed 3.5 liters. Weight in the bed scale today was 121.1 kg. General: The patient is seen in bed in the intensive care unit (ICU) intubated, not on sedation. Does not open eyes spontaneously. No spontaneous movements noted. He is breathing above the ventilator. He does not make eye contact nor track at the time of my visit. There are symmetric coarse breath sounds bilaterally. Heart sounds are regular. There is some trace edema of the legs. His Shelton catheter has been removed. His abdomen is soft. There are bowel sounds. He is receiving tube feeds. Extremities are warm and well perfused. There is a tunneled dialysis catheter in the right chest wall that is currently in use problems. Skin: Normal temperature and turgor. LABORATORY DATA: White count 11.8, hemoglobin 8.2, platelet 205. Sodium 132, potassium 4.9, BUN 104, magnesium 3.1. IMAGING STUDIES: Chest x-ray today: No infiltrates. Increased markings at the left base with sharp pleural ankles. INPATIENT MEDICATIONS: He was started on renally dosed Levaquin 250 mg every other day. He continues on Carvedilol 25 mg twice a day. His remainder medications is unchanged from prior. PROBLEMS: 1. End-stage renal disease, on hemodialysis on a Sunday, Sunday, Sunday schedule. The patient has been having a lot of intake due to the nicardipine drip that he was previously on that was running at 75 mL an hour with concurrent tube feeds also running at 75 mL an hour. His daily weights have risen. We are removing 3.5 liters removed with dialysis today. He is off the nicardipine infusion, and so his intake has reduced. I also cut the rate of tube feeds a little bit as well down to 50 mL an hour maximum. It can be re-increased once is volume status is optimized. His Perm-A-Cath is in good use. His blood urea nitrogen was up to 100 today. We are doing a 4-hour treatment with increased blood flow rate and large-size dialyzer for increased the adequacy of treatment. 2. Hypertension with end-stage renal disease. Blood pressures have been elevated this morning to 160s over 70s. We will remove 3.5 liters with treatment today. He continues on Carvedilol, hydralazine, and losartan. I am going to add amlodipine as well. 3. Anemia related to chronic renal failure. Hemoglobin is suboptimal at 8.2. There is likely a component of hemodilution as well, but his hemoglobin has very much so down trended over the course of this admission. I will get stool occult blood, and he is resumed on Aranesp. He is on gastrointestinal (GI) prophylaxis with Protonix. 4. Ventilator-dependent respiratory failure. He is requiring minimal FiO2. We are removing 3.5 liters with dialysis today. We are trying to keep him on the core drier side. His tube feed rate was decreased with that in mind. Ventilator management is as per critical care team, and there is plan for a trial of extubation tomorrow. 5. Hypermagnesemia. Magnesium is up to 3.1. He is not receiving any magnesium-containing medications. We will get a repeat level tomorrow
[2019-03-26 18:14] LABS: CALCIUM LEVEL 8.9 MG/DL (8.5-10.1); CREATININE FOR GFR 6.31 MG/DL (0.70-1.30); GLOMERULAR FILTRATION RATE 10.1 (>60); POTASSIUM SERUM 4.4 MEQ/L (3.5-5.1)
[2019-03-27] VITALS (38 sets, daily range): BP systolic 118–198; BP diastolic 56–94; O2SAT 89–97
[2019-03-27] MEDS: HumaLOG INSULIN (NovoLOG) PER UNIT SC SCH ×5 (00:17→18:16)
[2019-03-27 04:53] LABS: BASO # 0.1 10^3/uL (0.0-0.2); BASO % 0.7 % (0.0-1.0); EOS # 0.2 10^3/uL (0.0-0.5); EOS % 1.4 % (0.0-3.0); HEMATOCRIT 27.8 % (42.0-52.0); HEMOGLOBIN 9.1 g/dl (13.5-17.5); LYMPH # 2.1 10^3/uL (1.5-5.0); LYMPH % 16.4 % (24.0-44.0); MEAN CORPUSCULAR HGB CONC 32.7 g/dl (32.0-36.5); MEAN CORPUSCULAR VOLUME 94.6 fl (80.0-96.0); MONO # 1.8 10^3/uL (0.0-0.8); MONO % 14.2 % (0.0-5.0); NEUTROPHILS # 8.2 10^3/uL (1.5-8.5); NEUTROPHILS % 63.4 % (36.0-66.0); PLATELET COUNT, AUTOMATED 232 10^3/uL (150-450); RED BLOOD COUNT 2.94 10^6/uL (4.30-6.10); WHITE BLOOD COUNT 12.9 10^3/uL (4.0-10.0)
[2019-03-27] MEDS: **hydrALAZINE** 50 MG TAB NG SCH ×3 (05:09→23:16)
[2019-03-27] MEDS: HEPARIN SOD (PORCINE) 5000 UNITS/ML VIAL (J1644 PER 1000UNITS) SC SCH ×3 (05:10→23:15)
[2019-03-27] MEDS: MIDAZOLAM INJ 2 MG/2 ML VIAL (J2250) IV PRN (05:28)
[2019-03-27 05:31] LABS: ALBUMIN 2.2 GM/DL (3.2-5.2); BILIRUBIN,TOTAL 0.3 MG/DL (0.2-1.0); CALCIUM LEVEL 8.5 MG/DL (8.5-10.1); CREATININE FOR GFR 7.34 MG/DL (0.70-1.30); GLOMERULAR FILTRATION RATE 8.5 (>60); MAGNESIUM LEVEL 2.9 MG/DL (1.8-2.4); PHOSPHORUS LEVEL 5.6 MG/DL (2.5-4.9); POTASSIUM SERUM 4.5 MEQ/L (3.5-5.1); TOTAL PROTEIN 6.9 GM/DL (6.4-8.2)
[2019-03-27 06:02] LABS: ABG BASE EXCESS 1.2 (-2.0-2.0); ABG HCO3 25.3 MEQ/L (22.0-26.0); ABG O2 SATURATION 97.1 % (95.0-99.0); ABG PARTIAL PRESSURE CO2 38.1 mmHg (35.0-45.0); ABG PARTIAL PRESSURE O2 90.2 mmHg (75.0-100.0); ABG STANDARD HCO3 25.5 MEQ/L (22.0-26.0); ABG TOTAL CO2 26.5 MEQ/L (22.0-29.0)
--- NOTE | 2019-03-27 08:36 | REP ---
Clinical: Respiratory assistance. Comparison: 03/26/2019. Findings: Endotracheal tube, nasogastric tube, and double-lumen right dialysis catheter are stable and satisfactory position. Mediastinum and cardiac silhouette are stable. Lung laboy are relatively clear without focal consolidation, effusion, or pneumothorax. Skeletal structures are intact. Impression: Stable chest in their. No focal consolidation or obvious effusion. Electronically Signed by Shady Umaña MD 03/27/2019 08:28 A
[2019-03-27] MEDS: PANTOPRAZOLE 40MG INJ (PROTONIX) (C9113) IV SCH (09:00)
[2019-03-27] MEDS: CARVedilol 12.5 MG TAB NG SCH ×2 (09:00→20:40)
[2019-03-27] MEDS: LOSARTAN 50 MG TAB PO SCH ×2 (09:00→20:40)
[2019-03-27] MEDS: CHLORHEXIDINE GLUCONATE 0.12 % 15ML UDC (PERIDEX ORAL RINSE) MT SCH ×2 (09:00→20:39)
[2019-03-27] MEDS: ASPIRIN 81 MG CHEW TABLET GT SCH (09:01)
[2019-03-27] MEDS: LACRILUBE (AKWA TEARS) OPHTH OINT 3.5 GM OU SCH ×3 (09:01→20:41)
[2019-03-27] MEDS: amLODIPine 5 MG TAB PO SCH (09:01)
[2019-03-27] MEDS ORDERED: RACEPINEPHrine 2.25 % UD INHA As Ordered ONE (09:34)
[2019-03-27] MEDS ORDERED: dexameTHASONE 4 MG/ML 1ML VIAL (J1100) As Ordered ONE (09:36)
[2019-03-27] MEDS ORDERED: dexameTHASONE 4 MG/ML 1ML VIAL (J1100) IV ONE ×2 (09:45→10:45)
[2019-03-27] MEDS ORDERED: RACEPINEPHrine 2.25 % UD INHA INH ONE ×2 (10:00→10:15)
[2019-03-27 10:29] LABS: ABG HCO3 25.9 MEQ/L (22.0-26.0); ABG O2 SATURATION 94.5 % (95.0-99.0); ABG PARTIAL PRESSURE CO2 53.8 mmHg (35.0-45.0); ABG PARTIAL PRESSURE O2 82.7 mmHg (75.0-100.0); ABG STANDARD HCO3 23.6 MEQ/L (22.0-26.0); ABG TOTAL CO2 27.5 MEQ/L (22.0-29.0)
[2019-03-27] MEDS ORDERED: ETOMIDATE INJ 20MG/10ML VIAL As Ordered ONE (10:41)
[2019-03-27] MEDS ORDERED: fentaNYL 100 MCG/2 ML INJECTION (J3010) As Ordered ONE (10:41)
[2019-03-27] MEDS ORDERED: SUCCINYLCHOLINE INJ 200 MG/10 ML VIAL (J0330) As Ordered ONE (10:42)
[2019-03-27] MEDS ORDERED: HEPARIN 1,000 UNITS/ML 10ML VIAL (FOR RADIOLOGY& DIALYSIS ONLY)(J1644-10) XX ONE (11:00)
[2019-03-27] MEDS ORDERED: PROPOFOL 1,000 MG/100 ML VIAL As Ordered ONE (11:02)
[2019-03-27] MEDS: propofoL 1,000 MG in IV 1 EA IV SCH ×2 (11:05→16:24)
--- NOTE | 2019-03-27 11:38 | REP ---
Portable chest x-ray: 11:17 a.m. film. Comparison study: 11:12 a.m. on this same date. History: Endotracheal tube placement. Findings: The endotracheal tube has been replaced or advanced and is in good position at the level of the proximal clavicles. The lungs are symmetrically aerated. Minimal plate-like atelectasis suspected left base. Right-sided central venous line again noted. Impression: Endotracheal tube in good position. Electronically Signed by Vince Daugherty MD 03/27/2019 11:29 A
--- NOTE | 2019-03-27 11:38 | REP ---
Portable chest x-ray: Single view. 11:12 a.m. film. History: For endotracheal tube placement. Comparison study: 6:57 a.m. on this same date. Findings: Endotracheal tube terminates at the level of the glottis. This has withdrawn. It should be reinserted. There is a tunneled central venous catheter again noted in place. EKG electrodes are seen. The lungs remain symmetrically aerated. Pleural angles are sharp. Impression: Endotracheal tube has partially withdrawn to the level of the glottis. This should be reinserted. Electronically Signed by Vince Daugherty MD 03/27/2019 05:03 P
[2019-03-27 12:36] LABS: ABG BASE EXCESS -1.8 (-2.0-2.0); ABG HCO3 23.2 MEQ/L (22.0-26.0); ABG O2 SATURATION 98.4 % (95.0-99.0); ABG PARTIAL PRESSURE CO2 40.4 mmHg (35.0-45.0); ABG PARTIAL PRESSURE O2 129.3 mmHg (75.0-100.0); ABG TOTAL CO2 24.4 MEQ/L (22.0-29.0); ABG pH (ARTERIAL) 7.377 UNITS (7.350-7.450)
[2019-03-27] MEDS ORDERED: fentaNYL 100 MCG/2 ML INJECTION (J3010) IV STA (13:24)
[2019-03-27] MEDS ORDERED: ETOMIDATE INJ 20MG/10ML VIAL IV STA (13:24)
--- NOTE | 2019-03-27 13:34 | CCN ---
DATE: 03/27/2019 SUBJECTIVE: The patient is seen and examined this morning at bedside. Overnight, the patient began having more spontaneous and more purposeful movement, especially in his left upper extremity, somewhat in his right upper extremity and in his right lower extremity. On testing at bedside, there was an paleobotanist present. He is able to follow commands and was able to squeeze provider's hand on command, as well as letting go of the provider's hand on command. Sometimes he is poor following instructions and given his status as being deaf, mute, and having difficulty with seeing this is expected. Per the family's request, we have an paleobotanist at bedside, as we thought that it may be appropriate to extubate the patient. OBJECTIVE: VITAL SIGNS: Temperature 97.1, maximum temperature (t-max) 101.1 overnight. Blood pressure 180/81, pulse 85, respiratory rate of 21, saturating 95% on 30% FiO2, vent settings at that time were 30% FiO2, rate of 5, PEEP of 4, tidal volume of 460. GENERAL: The patient is awake, alert, unable to assess for orientation, in no acute distress on no sedation with endotracheal tube in place. HEENT: Head is normocephalic, atraumatic. Extraocular muscles intact. Sclerae nonicteric. ET tube is in place. Trachea is midline. CARDIOVASCULAR: Regular rate and rhythm. Normal S1, S2. No murmurs, gallops, rubs. RESPIRATORY: Lungs are clear to auscultation bilaterally with mildly diminished breath sounds at the bases and crackles at the bases as well, as well as mild rhonchi throughout. No wheezes appreciated. ABDOMEN: Soft, nontender, nondistended. Bowel sounds present. No hepatosplenomegaly or organomegaly. EXTREMITIES: 1+ pitting edema below the level of the knee in bilateral lower extremities. NEUROLOGIC: Difficult to assess, but cranial nerves II through XII are intact. He does have a positive gag reflex, but it is difficult to assess whether he is able to consistently able to follow commands. LABORATORY STUDIES: White blood cell count of 12.9, hemoglobin 9.1, hematocrit 27.8, platelet count of 232. Sodium 133, potassium 4.5, chloride 95, bicarbonate 26, BUN 75, creatinine 7.34, glucose 272, calcium 8.5, phosphorous 5.6, magnesium 2.9, total bilirubin 0.3, AST 29, ALT 27, alkaline phosphatase 122, LDH 407, total CK is 363, albumin is 2.2. Blood gas: His pH is 7.44, pCO2 of 38.1, pO2 of 90.2 preextubation. Postextubation at 10:21 a.m. his pH was 7.330, pCO2 of 53.8, pO2 of 82.7. Chest x-ray performed at 6:00 a.m. was stable with no focal consolidation or obvious effusion at that time. The ET tube was in place and there were no obvious changes from the day prior. Chest x-ray done at 11:02 showed the endotracheal tube has partially withdrawn to the level of the glottis, this should be reinserted. A repeat chest x-ray at 11:11 showed endotracheal tube in good position. ASSESSMENT: 1. Respiratory failure requiring mechanical ventilatory support. 2. Multiple CVAs status post cardiac arrest. 3. Cardiac arrest with successful resuscitation. 4. Chronic renal failure, dialysis dependent. 5. Obstructive sleep apnea syndrome with noncompliance with CPAP. PLAN: 1. Respiratory failure requiring mechanical ventilatory support. Given how responsive the patient had become this morning and well he had been doing over the last several days in terms of his breathing independence, as well as his RSI of 30, well below 105 and a bleep heard on deflation of the endotracheal , we thought it was appropriate to perform a trial of extubation to see how he did. This was performed with paleobotanist at bedside and the mother who is usually present at bedside was made aware at 0925. Following extubation, he appeared to be stridorous, he was given 4 mg of IV dexamethasone, as well as racemic epinephrine to help with possible subglottic edema. He was then placed on CPAP and his vitals seemed to become stable; however, his work of breathing did appear labored and he continued to be stridorous. We repeated a racemic epinephrine dose about 30 minutes to 1 hour later, as well as repeat dose of IV dexamethasone 4 mg to account for possible subglottic edema. However, he did not appear to be doing well and a repeat ABG done showed a pH of 7.3 with an elevated pCO2 and a decreased pO2 so decision was made that he would likely need to be reintubated. This was done urgently but not emergently. His was contacted and she verbalized understanding and agreement with the plan moving forward. His mother was also informed at bedside. I spoke with the at 10:40 a.m. At 11:00 a.m. he was reintubated and the initial approach was done with a size 8 endotracheal tube. This was deemed to be too big due to swelling at the arytenoids. Subsequent trial of intubation was performed by Dr. Salamanca again with a 7.5 and this was done successfully. He was placed on PRVC at a rate of 16, PEEP of 5 and tidal volume of 500 on 100% FiO2 with titration orders in place to keep him above 92%. We will continue the IV dexamethasone every 6 hours at this point for the next 24 hours and we will continue to reassess him for cuff leak to ensure that his subglottic edema has gone down appropriately. We will also only keep him on a propofol drip over the next hour and see if we can take him off of that as soon as possible since he has been without sedation for the last 4 to 5 days. Should he continue to improve, we will attempt trial of extubation again if it is appropriate. Of note, during extubation, he was essentially nonverbal, per his family he is able to speak prior, however, we did not expect him to really be able to give voice to anything given his arytenoid inflammation. 2. Multiple CVAs after cardiac arrest. This is certainly complicating his care as we do not know how much he is understanding or processing based on where his strokes are located. We continue to attempt to titrate his blood pressures and maintain them between 120 to 140 as neurology has recommended; however, he does have a history of resistant hypertension, which is complicating his care. Likely his high blood pressure this morning were more of a result of him being more awake, alert, and his respiratory distress. 3. Cardiac arrest with successful resuscitation. He has had no further episodes of cardiac arrest since he has been admitted to the hospital and his cardiovascular status seems to remain stable. 4. Chronic renal failure, dialysis dependent. Given his 1 to 2+ pitting edema in his bilateral lower extremities, nephrology felt that he would be appropriate for dialysis today as well. 5. Obstructive sleep apnea syndrome with noncompliance with CPAP. We will need to see how he tolerates that and if he is able to tolerate extubation to begin with. 6. Diet. He is currently on Nepro tube feeds as he was prior to his extubation and now his reintubation. 7. Deep vein thrombosis (DVT) prophylaxis. The patient is on heparin 5000 three times a day. 8. Gastrointestinal prophylaxis. THe patient is on Protonix 40 mg IV daily. The patient only has his dialysis peripherally inserted central catheter (PICC) line in his right upper chest. He is a FULL CODE at this time. MTDD
[2019-03-27] MEDS: IPRATROPIUM 0.5MG/ALBUTEROL 2.5MG INH SOL UD 3ML (DUONEB)(J7620) NEB SCH ×2 (13:43→21:44)
--- NOTE | 2019-03-27 14:12 | ROOPDOC ---
[facility] Report Of Operation Report of Operation DATE OF PROCEDURE: 03/27/19 PROCEDURE: Endotracheal intubation. INDICATION: Acute hypoxic respiratory failure. CONSENT: Attempts to call unsuccessful, however, voicemail left for . Patient's mother at bedside present and verbally agreed to intubation. Patient was emergently intubated for acute hypoxic respiratory failure with audible stridor. PROCEDURE NOTE: A timeout was called prior to procedure verifying patient, procedure, ind ication, and necessary treatment. The patient with placed in supine position with head of the bed at 30. Patient was sedated with fentanyl 50 MCG and etomidate 30 mg. An oral airway was placed and the patient was easily ventilated with an Ambu bag. A MAC 4 Glidescope was inserted into the oropharynx with adequate view of the vocal cords. The arytenoids were noted to be edematous. No blood noted in the oropharynx on initial examination. Initial attempt to pass 8.0 Vietnamese ET tube was unsuccessful. Patient with oxygen saturation of 85% and therefore the glides scope was removed an oral airway reinserted. Patient was bagged with increase in oxygenation. The Glidescope was again inserted into the oropharynx with adequate view of the vocal cords a small amount of blood noted near the arytenoids. A 7.5 ETT was easily passed through the vocal cords with adequate visualization. The stylette was removed. Immediate return of a moderate amount of bloody secretions noted which cleared with inline suctioning. Appropriate colorimeteric change was noted. Bilateral coarse breath sounds were heard. The ETT tube was initially placed at 21 cm at the teeth. Stat chest x-ray noted the ETT ending above the level of the clavicles. The ET tube was then advanced to 24 cm at the teeth. Chest x-ray confirmed appropriate position above the fam. The patient tolerated the procedure well with oxygenation remaining above 85% throughout the entire procedure. A small lower lip abrasion was sustained during intubation with hemostasis achieved. With later returned voicemail and was updated on events. BINDU OROURKE DO Mar 27, 2019 14:12
[2019-03-27] MEDS: MIRALAX *UNIT DOSE* 17GM PACKET PO SCH (14:29)
[2019-03-27] MEDS: BISACODYL 10 MG SUPP PR PRN (14:31)
[2019-03-27] MEDS: dexameTHASONE 4 MG/ML 1ML VIAL (J1100) IV SCH ×2 (16:22→23:15)
--- NOTE | 2019-03-27 19:12 | IPN ---
DATE: 03/27/2019 SUBJECTIVE: The patient is seen and examined at the bedside this morning. He had more spontaneous and purposeful movement overnight. He was extubated this AM but had to be re-intubated, as he had a lot of airway edema. He was given racemic epinephrine. HD continues without issues. OBJECTIVE: VITAL SIGNS: Temperature 99.3. He did have a fever of 101.1 yesterday. Pulse of 77, respiratory rate 26, blood pressure 165/74. His pulse oximetry is 98%, and he is 40% FiO2 with pressure-regulated volume control (PRVC) mode of the ventilator. Ins and outs: He net positive 1093 tube feeds. He had hemodialysis done yesterday, and 3500 mL were pulled off. His current weight is 120.3 kg, and when he came in his weight was 123 kg. GENERAL: He is lying in bed. He is sedated, not following any commands. He does not open his eyes spontaneously. He has no spontaneous movements at this time. LUNGS: Coarse breath sounds bilaterally. CHEST: Symmetric. There is some trace edema in his legs. His Shelton catheter has been removed. ABDOMEN: Soft. He has positive bowel sounds. He is currently receiving tube feeds through an orogastric (OG) tube. EXTREMITIES: Warm and well perfused. There is a tunneled dialysis catheter in the right chest wall that is currently in use. SKIN: Normal temperature and no new rashes. Neck: tunneled HD cath R chest wall. No JVD LABORATORY DATA: Today, CBC demonstrates a white blood cell count of 2.9, hemoglobin 9.1, hematocrit 27.8, and platelet count 232. He did have an ABG drawn right after he was extubated, I believe, 7.3, 53, and 82 with a base excess of -1.0. His most recent ABG demonstrates pH of 7.37, pCO2 of 40, and a pO2 of 129.3. Chemistries today demonstrate a sodium of 133, potassium 4.5, chloride 95, BUN 75, and his creatinine is 7.34 with a GFR estimated at 8%. His phosphorus is 5.6, his magnesium is 2.9. His LDH of 407. His total CK is 363. IMAGING: He had a chest x-ray done post intubation this morning, which demonstrates the endotracheal tube in good position. Lungs are symmetrically aerated. He has minimal plate-like atelectasis inspected on the left base. He has right-sided central venous line noted. PLAN: 1. End-stage renal disease, on hemodialysis Sunday, Sunday, Sunday. The patient was dialyzed an additional amount today and will again be dialyzed tomorrow as tolerated. He is no longer requiring the nicardipine drip, and his blood pressures have been normal. We have also cut the rate of his tube feeds as well to decrease the amount of fluid that he has been taking. His Perm-A-Cath is in good use. His BUN is slowly improving. We are currently doing 4-hour treatment with increased blood flow rate and large-size dialyzer to increase the adequacy of this treatment. 2. Hypertension with end-stage renal disease. Blood pressures have been within normal limits. Continue carvedilol, hydralazine, and losartan. We have also added amlodipine and increased the dose today. 3. Anemia related to chronic renal failure. His hemoglobin is currently 9.1, which is acceptable. He is resumed on Aranesp and gastrointestinal (GI) prophylaxis with Protonix. 4. Ventilator-dependent respiratory failure complicated by airway edema. Stable Fio2 requirement. Managed per Kelp Or Seagrass Gatherer. MTDD
[2019-03-27] MEDS: LEVEMIR (INSULIN DETEMIR) 1 UNITS/0.01ML SC SCH (20:39)
--- NOTE | 2019-03-27 22:30 | ECGEPIP ---
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 Electronically Signed on 03-27-2019 22:30:08 EST by Jayant Smith
[2019-03-28] VITALS (25 sets, daily range): BP systolic 109–197; BP diastolic 55–100; O2SAT 98–99
[2019-03-28] MEDS: HumaLOG INSULIN (NovoLOG) PER UNIT SC SCH ×10 (00:41→23:24)
[2019-03-28] MEDS: propofoL 1,000 MG in IV 1 EA IV SCH ×2 (01:02→06:25)
[2019-03-28] MEDS: IPRATROPIUM 0.5MG/ALBUTEROL 2.5MG INH SOL UD 3ML (DUONEB)(J7620) NEB SCH ×3 (02:00→11:59)
[2019-03-28 04:47] LABS: BASO # 0.1 10^3/uL (0.0-0.2); BASO % 0.3 % (0.0-1.0); EOS % 0.1 % (0.0-3.0); HEMATOCRIT 26.9 % (42.0-52.0); LYMPH # 1.5 10^3/uL (1.5-5.0); LYMPH % 7.9 % (24.0-44.0); MEAN CORPUSCULAR HEMOGLOBIN 31.5 pg (27.0-33.0); MEAN CORPUSCULAR HGB CONC 33.5 g/dl (32.0-36.5); MEAN CORPUSCULAR VOLUME 94.1 fl (80.0-96.0); MONO # 0.9 10^3/uL (0.0-0.8); MONO % 4.6 % (0.0-5.0); NEUTROPHILS % 83.1 % (36.0-66.0); PLATELET COUNT, AUTOMATED 272 10^3/uL (150-450); RED BLOOD COUNT 2.86 10^6/uL (4.30-6.10); WHITE BLOOD COUNT 19.3 10^3/uL (4.0-10.0)
[2019-03-28 05:20] LABS: ALBUMIN 2.2 GM/DL (3.2-5.2); BILIRUBIN,TOTAL 0.3 MG/DL (0.2-1.0); CALCIUM LEVEL 9.4 MG/DL (8.5-10.1); CREATININE FOR GFR 9.76 MG/DL (0.70-1.30); GLOMERULAR FILTRATION RATE 6.1 (>60); MAGNESIUM LEVEL 3.4 MG/DL (1.8-2.4); POTASSIUM SERUM 5.4 MEQ/L (3.5-5.1)
[2019-03-28] MEDS: dexameTHASONE 4 MG/ML 1ML VIAL (J1100) IV SCH ×4 (05:36→23:16)
[2019-03-28] MEDS: HEPARIN SOD (PORCINE) 5000 UNITS/ML VIAL (J1644 PER 1000UNITS) SC SCH ×3 (05:38→21:08)
[2019-03-28 05:42] LABS: ABG BASE EXCESS -3.8 (-2.0-2.0); ABG HCO3 21.5 MEQ/L (22.0-26.0); ABG O2 SATURATION 98.7 % (95.0-99.0); ABG PARTIAL PRESSURE CO2 39.8 mmHg (35.0-45.0); ABG PARTIAL PRESSURE O2 169.1 mmHg (75.0-100.0); ABG STANDARD HCO3 21.3 MEQ/L (22.0-26.0); ABG TOTAL CO2 22.7 MEQ/L (22.0-29.0)
[2019-03-28] MEDS: **hydrALAZINE** 50 MG TAB NG SCH ×3 (05:42→21:09)
--- NOTE | 2019-03-28 08:32 | REP ---
Portable chest, 07:37 a.m., single AP view with the patient upright: Comparison is 03/27 2019, 11:17 a.m.. Half The endotracheal tube remains in satisfactory position with the tip approximate 1 cm above the level of the aortic arch. The nasogastric tube terminates satisfactorily in the upper abdomen although the precise location of the distal tip is excluded at the inferior film margin. The right IJ dual lumen central venous catheter tip is in satisfactory position in the superior vena cava. There is questionably a small infiltrate above the medial aspect of the right hemidiaphragm. The lung laboy otherwise clear. The cardiac size is normal. The niya, mediastinum, skeletal structures are unremarkable. Impression: Lines and tubes are in satisfactory locations as described. Questionable small infiltrate above the medial aspect of the right hemidiaphragm. Electronically Signed by Jacob Cleary MD 03/28/2019 08:23 A
[2019-03-28] MEDS ORDERED: amLODIPine 10 MG TAB PO SCH (09:00)
[2019-03-28] MEDS: CHLORHEXIDINE GLUCONATE 0.12 % 15ML UDC (PERIDEX ORAL RINSE) MT SCH (09:00)
[2019-03-28] MEDS ORDERED: POLYVINYL ALCOHOL OPHTH SOLN 15 ML(LIQUITEARS) OU PRN (10:30)
[2019-03-28] MEDS: LIDOCAINE 5% (LIDODERM) PATCH TD SCH (11:41)
[2019-03-28] MEDS ORDERED: RACEPINEPHrine 2.25 % UD INHA INH ONE (12:00)
[2019-03-28] MEDS: PANTOPRAZOLE 40MG INJ (PROTONIX) (C9113) IV SCH (12:13)
[2019-03-28] MEDS: LOSARTAN 50 MG TAB PO SCH ×2 (12:20→20:08)
[2019-03-28] MEDS: MIRALAX *UNIT DOSE* 17GM PACKET PO SCH (12:21)
[2019-03-28] MEDS: CARVedilol 12.5 MG TAB NG SCH ×2 (12:21→20:08)
[2019-03-28] MEDS: ASPIRIN 81 MG CHEW TABLET GT SCH (12:21)
[2019-03-28] MEDS ORDERED: ALBUTEROL SULFATE 2.5 MG/0.5 ML INH NEB SOLN NEB ONE (12:30)
[2019-03-28] MEDS: SODIUM CHLORIDE HYPERTONIC 3% 15ML NEB SOL INH SCH ×3 (16:00→23:32)
[2019-03-28] MEDS: LevoFLOXacin IV 250 MG in IV 1 EA IV SCH (16:05)
[2019-03-28] MEDS: ALBUTEROL SULFATE 2.5 MG/0.5 ML INH NEB SOLN NEB SCH ×3 (17:53→23:32)
[2019-03-28] MEDS: dexmedeTOMidine 200 MCG in IV 1 EA IV SCH ×3 (19:30→23:30)
[2019-03-28] MEDS ORDERED: traMADol 50 MG TAB NG ONE (20:00)
--- NOTE | 2019-03-28 20:08 | IPNPDOC ---
Text Note Date of Service The patient was seen on 03/28/19. NOTE This note pertains to the nephrology service with Amena Cuellar DO supervising my work. Please see E attestation below. SUBJECTIVE: Patient was seen at bedside in the intensive care unit this afternoon in the presence of his mother and a instructional designer while he underwent hemodialysis. He is not currently receiving sedation. Pt underwent a trial of extubation yesterday and will have another today. He appears able to comprehend what the decal decorator is signing to him. The decal decorator reports that he does engage when she signs to him, and that he does sign back "yes" with his left hand. He appears visibly distressed and tearful about his current situation. No additional complaints/problems have developed since yesterday. OBJECTIVE: VITALS: Please see below. GENERAL: Pt appears stated age and is lying in bed with the head of the bed elevated. HEENT: Pupils equal, round, and reactive to light. Endotracheal and orogastric (OG) tubes are in place. Neck is supple. CARDIOVASCULAR: Regular rate and rhythm. Normal S1 & S2. No murmurs, rubs, or gallops appreciated. Minimal peripheral edema. Tunneled dialysis catheter present in right chest wall. PULMONARY: Symmetric air entry. Coarse ventilator sounds. Clear to auscultation b/l. No wheezes, rales, or rhonchi. Pt is breathing over the ventilator rate. ABDOMEN: Nondistended, soft. Bowel sounds present. GENITOURINARY: No Shelton catheter. 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 He is responsive to tactile stimuli and sign language. Eye movements are purposeful and facial expressions react to what is signed to him. He is able to move his lower extremities b/l and his left upper extremity. PSYCHOLOGICAL: Pt is clearly upset by his current situation. He is tearful at times. He remains otherwise calm and cooperative. INTAKE/OUTPUT: Pt is receiving tube feedings with a total intake of 1483 mL yesterday. Urine output is minimal. 3.5 L fluid was removed with dialysis today. Weight in the bed scale this morning is 121 kg, up 0.7 kg from yesterday. LABS: WBC 19.3, hemoglobin 9.0, platelets 272, sodium 129, potassium 5.4, BUN 115, creatinine 9.76. ABG: pH 7.350, pCO2 39.8. ASSESSMENT/PLAN: 1. End-stage renal disease on hemodialysis Sunday, Sunday, and Sunday. Tolerating treatments well. 3-4KG removed w/ each session. 2. Multiple acute strokes in the setting of [id number] cardiac arrest -Clinically improving. Likely to be extubated later today. 3. Hypertension - Stable on new regimen. Continue amlodipine, carvedilol, losartan, and hydralazine. 4. Anemia in chronic renal failure - Hemoglobin this morning was 9.0. We will continue him on Aranesp with GI prophylaxis by pantoprazole. 5. Nutrition - Pt remains on Nepro. 6. Ventilator dependent respiratory failure - Managed as per blueberry grower team. Extubation will be attempted again today. VS,Fishbone, I+O VS, Fishbone, I+O Laboratory Tests 03/28/19 04:30 Vital Signs Date Time Temp Pulse Resp B/P (MAP) Pulse Ox O2 Delivery O2 Flow Rate FiO2 03/28/19 17:30 HVNI-Vapotherm 20.0 55 03/28/19 17:30 98 03/28/19 16:00 98.7 79 22 133/75 (98) I&O- Last 24 Hours up to 6 AM 03/28/19 06:00 Intake Total 1498 ml Output Total 0 ml Balance 1498 ml GME ATTESTATION GME ATTESTATION My faculty preceptor for this patient encounter was physically present during the encounter and was fully available. All aspects of the patient interview, examination, medical decision making process, and medical care plan development were reviewed and approved by the faculty preceptor. The faculty preceptor is aware and concurs with the plan as stated in the body of this note and will attest to such by his/her cosignature. MIKAL BIRMINGHAM OMS-III Mar 28, 2019 20:08 AMENA CUELLAR DO Apr 10, 2019 10:41
[2019-03-28] MEDS: **NOTE PATIENT COMMENT** MISC XX SCH (21:00)
[2019-03-28] MEDS: LEVEMIR (INSULIN DETEMIR) 1 UNITS/0.01ML SC SCH (21:08)
[2019-03-28] MEDS: RACEPINEPHrine 2.25 % UD INHA INH PRN (23:21)
[2019-03-29] VITALS (19 sets, daily range): BP systolic 120–188; BP diastolic 60–132
[2019-03-29] MEDS: dexmedeTOMidine 200 MCG in IV 1 EA IV SCH ×10 (01:00→23:28)
[2019-03-29] MEDS: SODIUM CHLORIDE HYPERTONIC 3% 15ML NEB SOL INH SCH ×6 (04:00→23:38)
[2019-03-29] MEDS: RACEPINEPHrine 2.25 % UD INHA INH PRN ×2 (04:43→20:23)
[2019-03-29] MEDS: ALBUTEROL SULFATE 2.5 MG/0.5 ML INH NEB SOLN NEB SCH ×6 (04:44→23:38)
[2019-03-29 05:25] LABS: BASO # 0.1 10^3/uL (0.0-0.2); BASO % 0.4 % (0.0-1.0); HEMATOCRIT 32.1 % (42.0-52.0); HEMOGLOBIN 10.7 g/dl (13.5-17.5); LYMPH # 1.9 10^3/uL (1.5-5.0); LYMPH % 8.1 % (24.0-44.0); MEAN CORPUSCULAR HEMOGLOBIN 30.9 pg (27.0-33.0); MEAN CORPUSCULAR HGB CONC 33.3 g/dl (32.0-36.5); MEAN CORPUSCULAR VOLUME 92.8 fl (80.0-96.0); MONO # 1.2 10^3/uL (0.0-0.8); MONO % 5.1 % (0.0-5.0); NEUTROPHILS # 19.6 10^3/uL (1.5-8.5); NEUTROPHILS % 82.2 % (36.0-66.0); PLATELET COUNT, AUTOMATED 353 10^3/uL (150-450); RED BLOOD COUNT 3.46 10^6/uL (4.30-6.10); WHITE BLOOD COUNT 23.8 10^3/uL (4.0-10.0)
[2019-03-29] MEDS: dexameTHASONE 4 MG/ML 1ML VIAL (J1100) IV SCH (05:26)
[2019-03-29] MEDS: HumaLOG INSULIN (NovoLOG) PER UNIT SC SCH ×8 (05:33→23:29)
[2019-03-29] MEDS: HEPARIN SOD (PORCINE) 5000 UNITS/ML VIAL (J1644 PER 1000UNITS) SC SCH ×3 (05:33→21:22)
[2019-03-29] MEDS: **hydrALAZINE** 50 MG TAB NG SCH ×3 (05:34→21:24)
[2019-03-29 05:36] LABS: ABG BASE EXCESS -3.2 (-2.0-2.0); ABG HCO3 22.2 MEQ/L (22.0-26.0); ABG O2 SATURATION 92.6 % (95.0-99.0); ABG PARTIAL PRESSURE O2 67.8 mmHg (75.0-100.0); ABG STANDARD HCO3 21.7 MEQ/L (22.0-26.0); ABG TOTAL CO2 23.4 MEQ/L (22.0-29.0); ABG pH (ARTERIAL) 7.351 UNITS (7.350-7.450)
[2019-03-29 06:04] LABS: ALBUMIN 2.5 GM/DL (3.2-5.2); BILIRUBIN,TOTAL 0.3 MG/DL (0.2-1.0); CALCIUM LEVEL 9.8 MG/DL (8.5-10.1); CREATININE FOR GFR 7.72 MG/DL (0.70-1.30); MAGNESIUM LEVEL 3.1 MG/DL (1.8-2.4); PHOSPHORUS LEVEL 8.5 MG/DL (2.5-4.9); POTASSIUM SERUM 5.2 MEQ/L (3.5-5.1); TOTAL PROTEIN 8.8 GM/DL (6.4-8.2)
[2019-03-29] MEDS: PANTOPRAZOLE 40MG INJ (PROTONIX) (C9113) IV SCH (08:55)
[2019-03-29] MEDS: CARVedilol 12.5 MG TAB NG SCH ×2 (08:56→21:23)
[2019-03-29] MEDS: ASPIRIN 81 MG CHEW TABLET GT SCH (08:56)
[2019-03-29] MEDS: amLODIPine 10 MG TAB NG SCH (08:56)
[2019-03-29] MEDS: LIDOCAINE 5% (LIDODERM) PATCH TD SCH (08:57)
[2019-03-29] MEDS ORDERED: MIRALAX *UNIT DOSE* 17GM PACKET NG SCH (09:00)
[2019-03-29] MEDS: LOSARTAN 50 MG TAB NG SCH ×2 (09:02→21:23)
[2019-03-29] MEDS ORDERED: ANEXSIA, NORCO 7.5MG/325MG TABLET(HYDROCODONE/APAP) PO PRN (10:30)
[2019-03-29] MEDS ORDERED: CHLORASEPTIC SPRAY MT PRN (13:45)
[2019-03-29] MEDS ORDERED: MIRALAX *UNIT DOSE* 17GM PACKET NG PRN (13:45)
--- NOTE | 2019-03-29 14:38 | IPNPDOC ---
Date Seen The patient was seen on 03/27/19. Late entry. Resident note completed on date of evaluation. Unable to co-sign resident note and therefore individual note entered. Progress Note SUBJECTIVE: Patient seen and examined. No acute events overnight. Upon entry patient is turning head and looking around the room. He is moving his left arm and bilateral legs. There is limited movement of the right arm. He is currently on CPAP and tolerating it well. Cuff leak was checked and and initially no audible leak was heard. However, this was immediately repeated and a significant audible leak was appreciated. Patient extubated to nasal cannula in the morning. Upon extubation stridorous expirations were appreciated. Patient was given racemic epi, scheduled Decadron, and initiated on BiPAP. Despite these interventions patient progressively worsened and ultimately required reintubation. Family was updated of patient's condition prior to reintubation. are agreeable for reintubation trial. OBJECTIVE: VITAL SIGNS: Temperature 97.1, maximum temperature (t-max) 101.1 overnight. Blood pressure 180/81, pulse 85, respiratory rate of 21, saturating 95% on 30% FiO2, vent settings at that time were 30% FiO2, rate of 5, PEEP of 4, tidal volume of 460. He is currently on pressure support of 5 GENERAL: Alert and oriented in no acute distress HENT: Normocephalic, atraumatic EYES: Pupils equal round and reactive to light, no scleral icterus CARDIOVASCULAR: Regular rate and rhythm, no lower extremity edema RESPIRATORY: Clear to auscultation bilaterally ABDOMINAL: Soft, nontender, nondistended, positive bowel sounds EXTREMITIES: Normal range of motion of upper and lower extremities on the left. Limited mobility of the right upper extremity. Slightly diminished motion of the right lower extremity when compared to the left. NEUROLOGICAL: Awake and alert. He intermittently follows commands. He is deaf and difficult to communicate with and therefore unclear orientation at this time. SKIN: Warm and dry LABORATORY STUDIES: White blood cell count of 12.9, hemoglobin 9.1, hematocrit 27.8, platelet count of 232. Sodium 133, potassium 4.5, chloride 95, bicarbonate 26, BUN 75, creatinine 7.34, glucose 272, calcium 8.5, phosphorous 5.6, magnesium 2.9, total bilirubin 0.3, AST 29, ALT 27, alkaline phosphatase 122, LDH 407, total CK is 363, albumin is 2.2. Blood gas: His pH is 7.44, pCO2 of 38.1, pO2 of 90.2 preextubation. Postextubation at 10:21 a.m. his pH was 7.330, pCO2 of 53.8, pO2 of 82.7. Chest x-ray performed at 6:00 a.m. independently visualize without focal consolidation. ASSESSMENT/PLAN: Patient is a 48-year-old male who presented to [facility] emergency department on 03/19/2019 after an out of hospital cardiac arrest. Patient reportedly at dialysis Center. He reportedly had completed dialysis and was standing to take a blood pressure when he collapsed and had possible seizure-like activity. Per rev iew of hospital records, patient unresponsive and in PEA when EMS presented. ROSC was retrieved after approximately 10 minutes out of hospital CPR. Patient was admitted to the ICU and underwent targeted temperature management. #PEA Cardiac Arrest s/p ROSC - Unknown etiology, but likely hypoperfusion following dialysis s/p ROSC, TTM with meaningful neurologic recovery - Echo (03/24) with normal ejection fraction of 70% - MRI consistent with multiple acute and subacute bilateral CVAs - Patient is awake and looks around the room but has deficit of the right upper extremity and does not currently demonstrate a level of understanding communication even with furniture upholsterer unclear extent of hypoxic injury #Acute hypoxic and hypercapnic respiratory failure - Likely secondary to laryngeal airway edema, and consideration for pneumonia given elevation in for calcitonin and WBC - Patient initially intubated on 03/19. Attempted expiration today however patient failed due to airway edema and was reintubated - We'll continue antibiotics with Levaquin (03/26-present), await sputum cultures, repeat pro-calcitonin - Continue Decadron 4 mg every 6 hours for edema - The current ventilator setting things titrate FiO2 to SPO2 greater than 92% - We'll resume propofol for sedation, monitor triglycerides particularly in light of current elevation - Daily SBT. Will ensure adequate leak prior to extubation #Laryngeal Airway Edema - Management as above. Continue Decadron. We'll repeat SBT in the morning and plan to extubate when adequate because noted #Multiple bilateral CVAs - Unclear etiology at this time. Given possible underlining embolic phenomenon would consider AMMY for further evaluation - Aspirin 324 g daily - Neurology following #ESRD - Plan for dialysis tomorrow and every Sunday - Nephrology following #Hypertension - Continue amlodipine 10 mg daily, carvedilol 25 mg twice a day, hydralazine 100 mg every 8 #Deaf - Resistor Inspector requested and currently at the bedside Diet: Resume Nepro 55cc/hr with 30mL q4h FWF DVT/GI ppx: Heparin SubQ, Protonix L/T/D: 7.5ETT, NG, Right IJ Tunneled catheter (WATERPROOFING MIXER) Drips: Propofol Code Status: Full Code. Patient is currently surrogate decision maker. Dispo: Will continue to monitor in the ICU while intubated Critical care time: 65 minutes. Time spent immediately at bedside evaluating patient, monitoring effects of interventions, discussing goals of care with family, in the setting of respiratory distress. Time spent independent of other over procedures. VS, I&O, 24H, Marii Laboratory Data 24H LABS BINDU OROURKE DO Mar 29, 2019 14:06
[2019-03-29] MEDS: NORCO, ANEXSIA 5/325MG TABLET (HYDROcodone/ACETAMINOPHEN) PO PRN ×2 (17:48→23:30)
--- NOTE | 2019-03-29 18:15 | IPN ---
DATE: 03/29/2019 Mr. Maciel was seen and examined at the bedside this morning. He was sleeping and very hard to arouse. The communication and outreach manager attending, Dr. Salamanca, was present and stated that they had put him on Precedex, as he has been moving around a lot in bed, and they are afraid that he may fall out of bed. He also has a one-to-one sitter. He tolerated dialysis yesterday well. No other changes were reported overnight. OBJECTIVE: VITAL SIGNS: Temperature is 99.0 degrees, pulse of 63, respiratory rate of 22, blood pressure 152/72, pulse oximetry is 94% on 2 liters nasal cannula. Intake and output: He had 3500 mL removed during dialysis yesterday. He is net positive 360. GENERAL: He is lying in bed, sleeping, very hard to arouse. Does not appear in any acute distress. HEAD: Normocephalic, atraumatic. EENT: Unable to assess pupils. LUNGS: Clear to auscultation bilaterally. No adventitious breath sounds. HEART: Regular rate and rhythm with no murmurs, rubs, or gallops. EXTREMITIES: He does have trace pitting edema in his lower extremities bilaterally. ABDOMEN: Soft and nontender to palpation. Normoactive bowel sounds. LABORATORY DATA: This morning his CBC demonstrates a white blood cell count 23.8, hemoglobin 10.7, hematocrit 32.1, platelet count 353. Chemistries: Sodium 133, potassium 5.2, chloride 93, BUN 102, creatinine 7.72 with a fasting glucose of 345. His phosphorus is 8.5, and his magnesium is 3.1. His last procalcitonin yesterday was found to be 5.6. Last blood gas that was drawn was 7.35, 41, and 67. No other imaging or labs were done. PLAN: 1. End-stage renal disease, on hemodialysis Sunday, Sunday, Sunday. Patient underwent dialysis yesterday. We will not dialyze him again today. He will likely need dialysis again on Sunday. He is slowly improving. His BUN and creatinine look better today. 2. Hypertension with end-stage renal disease. Blood pressures have been within normal limits. Continue the carvedilol, hydralazine, (cut off) and amlodipine. 3. Anemia related to chronic renal failure. His hemoglobin currently is acceptable. He is resumed on Aranesp and gastrointestinal (GI) prophylaxis with Protonix.
--- NOTE | 2019-03-29 19:07 | IPNPDOC ---
Date Seen The patient was seen on 03/28/19. Progress Note SUBJECTIVE: Patient seen and examined. No acute events overnight. This morning, patient is more alert, than yesterday. He is responding to the plant associate appropriately but shaking head yes/no will infrequently sign. Patient underwent HD today with 3L fluid removal. Patient tolerated pressure support during HD. Following HD, patient remained awake and alert. Patient had a convincing leak with more than 300cc drop in tidal volumes. Decision was made to extubated with a dose of r acemic epinephrine to following. Patient with audible upper airway wheezing, but no stridor. Patient with frequent coughing requiring suction of sputum, but protecting airway. Patient does infrequent desaturate requiring cough encouragement and deep suctioning for expectoration. Patient frequently r epositioning self due to pain in buttocks. In the automatic brine mixer operator was order and precedex started as patient was a fall risk. OBJECTIVE: Vitals: See below GENERAL: Alert and oriented, in no acute distress HENT: Normocephalic, atraumatic EYES: Pupils equal round and reactive to light, no scleral icterus CARDIOVASCULAR: Regular rate and rhythm, no lower extremity edema RESPIRATORY: Course breath sounds bilateral with upper airway congestion ABDOMINAL: Soft, nontender, nondistended, positive bowel sounds EXTREMITIES: Normal range of motion of upper and lower extremities on the left. Limited mobility of the right upper extremity. Slightly diminished motion of the right lower extremity when compared to the left. NEUROLOGICAL: Awake and alert. Follows commands. But frequently unable to sit still and often rolls to his side He is deaf and difficult to communicate with a nd therefore unclear orientation at this time. SKIN: Warm and dry LABORATORY, MICRO, IMAGES: See belo ASSESSMENT/PLAN: Patient is a 48-year-old male who presented to [facility] emergency department on 03/19/2019 after an out of hospital cardiac arrest. Patient reportedly at dialysis Center. He reportedly had completed dialysis and was standing to take a blood pressure when he collapsed and had possible seizure-like activity. Per review of hospital records, patient unresponsive and in PEA when EMS presented. ROSC was retrieved after approximately 10 minutes out of hospital CPR. Patient was admitted to the ICU and underwent targeted temperature management. Patient was extubated on 03/27/2019, however, required reintubation for airway edema and started on Decadron #PEA Cardiac Arrest s/p ROSC - Unknown etiology, but likely hypoperfusion following dialysis s/p ROSC, TTM with meaningful neurologic recovery - Echo (03/24) with normal ejection fraction of 70% - MRI consistent with multiple acute and subacute bilateral CVAs - Patient is awake and alert, inconsistently follows commands and answers yes/no questions. #Acute hypoxic and hypercapnic respiratory failure - Likely secondary to laryngeal airway edema, and consideration for pneumonia given elevation in for calcitonin and WBC - Patient initially intubated on 03/19. Attempted expiration today however patient failed due to airway edema and was reintubated - We'll continue antibiotics with Levaquin (03/26-present), await sputum cult ures, repeat pro-calcitonin elavated to 5 - Continue Decadron 4 mg every 6 hours for edema for another 24 hours given audible upper airway wheeze - Titrate O2 to keep SpO2 > 92%, BiPAP PRN #Laryngeal Airway Edema - Improving, Continue Decadron. #Pneumonia - Will continue Levaquin. Sputum cultures with yeast only. #DM2 - Continue sliding scale. Will start Lantus 10U, and scheduled Lispro. Likely increased elevation due to steroids #Multiple bilateral CVAs - Unclear etiology at this time. Given possible underlining embolic phenomenon would consider AMMY for further evaluation - Aspirin 324 g daily - Neurology following #ESRD - Plan for dialysis Sunday - Nephrology following #Hypertension - Continue amlodipine 10 mg daily, carvedilol 25 mg twice a day, hydralazine 100 mg every 8 #Deaf - Web Applications Administrator requested and currently at the bedside Diet: Hold tube feeds give concern for possible re-intubation DVT/GI ppx: Heparin SubQ, Protonix L/T/D: NG, Right IJ Tunneled catheter (EMERGENCY ROOM DOCTOR) Drips: None Code Status: Full Code. Patient is currently surrogate decision maker. Dispo: Will continue to monitor in the ICU given recent extubation Critical care time: 55 minutes. Time spent immediately at bedside evaluating patient, performing SBT, and re-evaluating patient following intubation. Billin VS, I&O, 24H, Fishbone Vital Signs/I&O Vital Signs Date Time Temp Pulse Resp B/P (MAP) Pulse Ox O2 Delivery O2 Flow Rate FiO2 03/28/19 22:11 98.9 68 25 147/66 (95) 94 HVNI-Vapotherm 20.0 55 I&O- Last 24 Hours up to 6 AM 03/28/19 06:00 Intake Total 1498 ml Output Total 0 ml Balance 1498 ml Laboratory Data 24H LABS Laboratory Tests 2 03/28/19 00:32: Bedside Glucose (Misc Panel) 432H 03/28/19 04:30: Immature Granulocyte % (Auto) 4.0H, Neutrophils (%) (Auto) 83.1H, Lymphocytes (%) (Auto) 7.9L, Monocytes (%) (Auto) 4.6, Eosinophils (%) (Auto) 0.1, Basophils (%) (Auto) 0.3, Neutrophils # (Auto) 16.0H, Lymphocytes # (Auto) 1.5, Monocytes # (Auto) 0.9H, Eosinophils # (Auto) 0.0, Basophils # (Auto) 0.1, Nucleated Red Blood Cells % (auto) 0.0, Anion Gap 15, Glomerular Filtration Rate 6.1L, Calcium Level 9.4, Phosphorus Level 7.0#H, Magnesium Level 3.4H, Total Bilirubin 0.3, Aspartate Amino Transf (AST/SGOT) 17, Alanine Aminotransferase (ALT/SGPT) 24, Alkaline Phosphatase 124H, Lactate Dehydrogenase 195, Total Creatine Kinase 224, Total Protein 8.0, Albumin 2.2L, Albumin/Globulin Ratio 0.38L, Triglycerides Level 433H, Cholesterol Level 135, Procalcitonin 5.60 03/28/19 05:28: Blood Gas Bicarbonate Standard 21.3L, Arterial Blood pH 7.350, Arterial Blood Partial Pressure CO2 39.8, Arterial Blood Partial Pressure O2 169.1H, Arterial Blood Total CO2 22.7, Arterial Blood HCO3 21.5L, Arterial Blood Base Excess -3 .8L, Arterial Blood Oxygen Saturation 98.7 03/28/19 11:43: Bedside Glucose (Misc Panel) 253H 03/28/19 12:48: Bedside Glucose (Misc Panel) 298H 03/28/19 17:42: Bedside Glucose (Misc Panel) 280H 03/28/19 21:03: Bedside Glucose (Misc Panel) 253H CBC/BMP Laboratory Tests 03/28/19 04:30 Microbiology Microbiology 03/26/19 Gram Stain - Final, Complete 03/26/19 Sputum Culture - Final, Complete Yeast Like Organism 03/23/19 Gram Stain - Final, Complete 03/23/19 Sputum Culture - Final, Complete 03/20/19 Blood Culture - Final, Complete NO GROWTH AFTER 5 DAYS 03/20/19 Blood Culture - Final, Complete NO GROWTH AFTER 5 DAYS 03/19/19 Blood Culture - Final, Complete NO GROWTH AFTER 5 DAYS 03/19/19 Blood Culture - Final, Complete NO GROWTH AFTER 5 DAYS BINDU OROURKE DO Mar 28, 2019 23:13
[2019-03-29] MEDS: fentaNYL 100 MCG/2 ML INJECTION (J3010) IV PRN (19:15)
--- NOTE | 2019-03-29 19:18 | IPNPDOC ---
Date Seen The patient was seen on 03/29/19. Progress Note SUBJECTIVE: Patient seen and examined. Overnight, patient agitated, unable to sit still or be redirected. Precedex was increased to max dose with some improvement. Patient indicates pain of his buttocks and back that is making him uncomfortable. This morning, patient is resting comfortably and is corperative. He complains of sore throat and back pain. He denies difficulty breathing, chest pain, or abdominal pain. OBJECTIVE: Vitals: See below GENERAL: Alert and oriented, in no acute distress HENT: Normocephalic, atraumatic EYES: Pupils equal round and reactive to light, no scleral icterus CARDIOVASCULAR: Regular rate and rhythm, no lower extremity edema RESPIRATORY: Course breath sounds bilateral without upper airway congestion ABDOMINAL: Soft, nontender, nondistended, positive bowel sounds EXTREMITIES: Normal range of motion of upper and lower extremities on the left. Limited mobility of the right upper extremity. Slightly diminished motion of the right lower extremity when compared to the left. NEUROLOGICAL: Awake and alert. Follows commands. cooperative at this time. Is signing simple words to marketing analytics lead SKIN: Warm and dry LABORATORY, MICRO, IMAGES: See below ASSESSMENT/PLAN: Patient is a 48-year-old male who presented to [facility] emergency department on 03/19/2019 after an out of hospital cardiac arrest. Patient reportedly at dialysis Center. He reportedly had completed dialysis and was standing to take a blood pressure when he collapsed and had possible seizure-like activity. Per review of hospital records, patient unresponsive and in PEA when EMS presented. ROSC was retrieved after approximately 10 minutes out of hospital CPR. Patient was admitted to the ICU and underwent targeted temperature management. Patient was extubated on 03/27/2019, however, required reintubation for airway edema and started on Decadron. Patient successfully extubated yesterday. #PEA Cardiac Arrest s/p ROSC - Unknown etiology, but likely hypoperfusion following dialysis s/p ROSC, TTM with meaningful neurologic recovery - Echo (03/24) with normal ejection fraction of 70% - MRI consistent with multiple acute and subacute bilateral CVAs - Patient is awake and alert, and following commands #Acute hypoxic and hypercapnic respiratory failure - Likely secondary to laryngeal airway edema, and pneumonia, improving - Patient initially intubated on 03/19. Attempted expiration today however patient failed due to airway edema and was reintubated - We'll continue antibiotics with Levaquin (03/26-present),sputum cultures with yeast. Repeat sputum if able. - Discontinue decadron - Chest PT, hypertonic saline nebulizers for secretions - Titrate O2 to keep SpO2 > 92%, BiPAP PRN #Laryngeal Airway Edema - Improving - Given prolonged intubation and edema and CVAs will order speech evaluation prior to PO intake #Pneumonia - Will continue Levaquin. Repeat cultures #DM2 - Continue sliding scale. Increase Lantus 16U, and scheduled Lispro. Likely increased elevation due to steroids #Multiple bilateral CVAs - Unclear etiology at this time. Given possible underlining embolic phenomenon would consider AMMY for further evaluation - Aspirin 324 g daily, and Lipitor - Neurology following #Back pain from sacral fissure - [place], Dilaudid PRN. Monitor respiratory status #Hypertriglyceridemia - Add lipitor #ESRD - Plan for dialysis Sunday - Nephrology following #Hypertension - Continue amlodipine 10 mg daily, carvedilol 25 mg twice a day, hydralazine 100 mg every 8 #Deaf - Bowling Pin Refinisher requested and currently at the bedside Diet: Resume tube feeds with Nepro 30cc/hr with Beniiprotein DVT/GI ppx: Heparin SubQ, Protonix L/T/D: NG, Right IJ Tunneled catheter (HAND OR MACHINE PASTER) Drips: Precedex Code Status: Full Code. is currently the decision-maker. Discussed goals of care at length with . She is unsure at this time, but will discuss with patient's mother and think about code status. All questions answered. Palliative care consulted. Dispo: Will continue to monitor in the ICU given recent extubation and need for Vapotherm. Billin VS, I&O, 24H, [facility] Vital Signs/I&O Vital Signs Date Time Temp Pulse Resp B/P (MAP) Pulse Ox O2 Delivery O2 Flow Rate FiO2 03/29/19 10:56 20 03/29/19 08:56 63 152/72 03/29/19 08:00 94 HVNI-Vapotherm 20.0 55 03/29/19 04:11 99.0 I&O- Last 24 Hours up to 6 AM 03/29/19 06:00 Intake Total 460 ml Output Total 3500 ml Balance -3040 ml Laboratory Data 24H LABS Laboratory Tests 2 03/28/19 11:43: Bedside Glucose (Misc Panel) 253H 03/28/19 12:48: Bedside Glucose (Misc Panel) 298H 03/28/19 17:42: Bedside Glucose (Misc Panel) 280H 03/28/19 21:03: Bedside Glucose (Misc Panel) 253H 03/28/19 23:18: Bedside Glucose (Misc Panel) 280H 03/29/19 05:15: Immature Granulocyte % (Auto) 4.2H, Neutrophils (%) (Auto) 82.2H, Lymphocytes (%) (Auto) 8.1L, Monocytes (%) (Auto) 5.1H, Eosinophils (%) (Auto) 0.0, Basophils (%) (Auto) 0.4, Neutrophils # (Auto) 19.6H, Lymphocytes # (Auto) 1.9, Monocytes # (Auto) 1.2H, Eosinophils # (Auto) 0.0, Basophils # (Auto) 0.1, Nucleated Red Blood Cells % (auto) 0.0, Anion Gap 17H, Glomerular Filtration Rate 8.0L, Calcium Level 9.8, Phosphorus Level 8.5#H, Magnesium Level 3.1H, Total Bilirubin 0.3, Aspartate Amino Transf (AST/SGOT) 17, Alanine Aminotransferase (ALT/SGPT) 28, Alkaline Phosphatase 131H, Lactate Dehydrogenase 222, Total Creatine Kinase 134, Total Protein 8.8H, Albumin 2.5L, Albumin/Globulin Ratio 0.40L, Triglycerides Level 444H, Cholesterol Level 164 03/29/19 05:25: Bedside Glucose (Misc Panel) 308H 03/29/19 05:31: Blood Gas Bicarbonate Standard 21.7L, Arterial Blood pH 7.351, Arterial Blood Partial Pressure CO2 41.0, Arterial Blood Partial Pressure O2 67.8L, Arterial Blood Total CO2 23.4, Arterial Blood HCO3 22.2, Arterial Blood Base Excess - 3.2L, Arterial Blood Oxygen Saturation 92.6L 03/29/19 11:25: Bedside Glucose (Misc Panel) 373H CBC/BMP Laboratory Tests 03/29/19 05:15 Microbiology Microbiology 03/26/19 Gram Stain - Final, Complete 03/26/19 Sputum Culture - Final, Complete Yeast Like Organism 03/23/19 Gram Stain - Final, Complete 03/23/19 Sputum Culture - Final, Complete 03/20/19 Blood Culture - Final, Complete NO GROWTH AFTER 5 DAYS 03/20/19 Blood Culture - Final, Complete NO GROWTH AFTER 5 DAYS 03/19/19 Blood Culture - Final, Complete NO GROWTH AFTER 5 DAYS 03/19/19 Blood Culture - Final, Complete NO GROWTH AFTER 5 DAYS BINDU OROURKE DO Mar 29, 2019 11:41
[2019-03-29] MEDS: **NOTE PATIENT COMMENT** MISC XX SCH (21:00)
[2019-03-29] MEDS: LEVEMIR (INSULIN DETEMIR) 1 UNITS/0.01ML SC SCH (21:22)
[2019-03-29] MEDS: ATORVASTATIN 20 MG TAB NG SCH (21:23)
[2019-03-29] MEDS: HYDROMORPHONE HCL 0.5 MG/ 0.5 ML SYRINGE (J1170 PER 1) IV PRN (21:24)
[2019-03-30] VITALS (24 sets, daily range): BP systolic 90–156; BP diastolic 52–103; O2SAT 94
[2019-03-30] MEDS: dexmedeTOMidine 200 MCG in IV 1 EA IV SCH (02:07)
[2019-03-30] MEDS: ALBUTEROL SULFATE 2.5 MG/0.5 ML INH NEB SOLN NEB SCH ×6 (04:29→23:47)
[2019-03-30] MEDS: SODIUM CHLORIDE HYPERTONIC 3% 15ML NEB SOL INH SCH ×6 (04:29→23:47)
[2019-03-30 05:17] LABS: BASO # 0.1 10^3/uL (0.0-0.2); BASO % 0.4 % (0.0-1.0); HEMATOCRIT 30.7 % (42.0-52.0); HEMOGLOBIN 10.2 g/dl (13.5-17.5); LYMPH % 17.2 % (24.0-44.0); MEAN CORPUSCULAR HGB CONC 33.2 g/dl (32.0-36.5); MEAN CORPUSCULAR VOLUME 93.3 fl (80.0-96.0); MONO % 9.1 % (0.0-5.0); NEUTROPHILS # 16.1 10^3/uL (1.5-8.5); NEUTROPHILS % 69.7 % (36.0-66.0); PLATELET COUNT, AUTOMATED 402 10^3/uL (150-450); RED BLOOD COUNT 3.29 10^6/uL (4.30-6.10); WHITE BLOOD COUNT 23.1 10^3/uL (4.0-10.0)
[2019-03-30] MEDS: fentaNYL 100 MCG/2 ML INJECTION (J3010) IV PRN (05:18)
[2019-03-30 05:31] LABS: HEMOGLOBIN A1c 6.7 %
[2019-03-30 05:37] LABS: MONO # 2.1 10^3/uL (0.0-0.8)
[2019-03-30] MEDS: HumaLOG INSULIN (NovoLOG) PER UNIT SC SCH ×7 (05:42→23:22)
[2019-03-30] MEDS: HEPARIN SOD (PORCINE) 5000 UNITS/ML VIAL (J1644 PER 1000UNITS) SC SCH ×3 (05:42→21:13)
[2019-03-30] MEDS: **hydrALAZINE** 50 MG TAB NG SCH ×3 (05:43→21:09)
[2019-03-30 05:51] LABS: ALBUMIN 2.6 GM/DL (3.2-5.2); BILIRUBIN,TOTAL 0.4 MG/DL (0.2-1.0); CALCIUM LEVEL 8.9 MG/DL (8.5-10.1); CREATININE FOR GFR 9.83 MG/DL (0.70-1.30); GLOMERULAR FILTRATION RATE 6.1 (>60); MAGNESIUM LEVEL 3.4 MG/DL (1.8-2.4); PHOSPHORUS LEVEL 11.7 MG/DL (2.5-4.9); POTASSIUM SERUM 4.9 MEQ/L (3.5-5.1); TOTAL PROTEIN 7.2 GM/DL (6.4-8.2)
[2019-03-30] MEDS: RACEPINEPHrine 2.25 % UD INHA INH PRN (06:19)
[2019-03-30] MEDS ORDERED: ALBUTEROL SULFATE 2.5 MG/0.5 ML INH NEB SOLN NEB PRN (07:00)
[2019-03-30] MEDS: ASPIRIN 81 MG CHEW TABLET GT SCH (09:16)
[2019-03-30] MEDS: LIDOCAINE 5% (LIDODERM) PATCH TD SCH (09:16)
[2019-03-30] MEDS: PANTOPRAZOLE 40MG INJ (PROTONIX) (C9113) IV SCH (09:16)
[2019-03-30] MEDS: LOSARTAN 50 MG TAB NG SCH ×2 (09:17→20:08)
[2019-03-30] MEDS: CARVedilol 12.5 MG TAB NG SCH ×2 (09:18→20:15)
[2019-03-30] MEDS: amLODIPine 10 MG TAB NG SCH (09:18)
[2019-03-30] MEDS: NORCO, ANEXSIA 5/325MG TABLET (HYDROcodone/ACETAMINOPHEN) PO PRN (09:19)
--- NOTE | 2019-03-30 09:47 | REP ---
Portable chest, 09:23 a.m., single AP view the patient semi upright: Comparison is 03/28/2019. The the patient is rotated. The visualized lung laboy are clear. Cardiac size is normal. The niya, mediastinum, skeletal structures are unremarkable. The right IJ central venous double-lumen catheter tip is in the superior vena cava in satisfactory position, unchanged. The nasogastric tube terminates in the upper abdomen although the position of the distal tip is excluded at the inferior film margin. This is unchanged. The endotracheal tube has been removed. Impression: No significant interval change except for patient rotation on the current study. An interval removal of the endotracheal tube. Electronically Signed by Jacob Cleary MD 03/30/2019 09:38 A
[2019-03-30] MEDS ORDERED: HEPARIN 1,000 UNITS/ML 10ML VIAL (FOR RADIOLOGY& DIALYSIS ONLY)(J1644-10) XX ONE (12:00)
[2019-03-30 16:58] LABS: ABG BASE EXCESS -2.7 (-2.0-2.0); ABG HCO3 19.7 MEQ/L (22.0-26.0); ABG O2 SATURATION 85.6 % (95.0-99.0); ABG PARTIAL PRESSURE CO2 27.6 mmHg (35.0-45.0); ABG PARTIAL PRESSURE O2 50.4 mmHg (75.0-100.0); ABG TOTAL CO2 20.6 MEQ/L (22.0-29.0); ABG pH (ARTERIAL) 7.472 UNITS (7.350-7.450)
[2019-03-30] MEDS ORDERED: ETOMIDATE INJ 20MG/10ML VIAL As Ordered ONE ×2 (17:07→17:08)
--- NOTE | 2019-03-30 17:07 | IPN ---
DATE: 03/30/2019 Mr. Maciel is seen in intensive care unit on his bedside. He has been extubated about three days ago and I was informed this morning about worsening respiratory status. I have evaluated him on the bedside this morning. The patient is deaf and mute. Damage Cutter is present in the room and I have talked to the underwriting support specialist. The patient has been, at times, somewhat vague, but he was able to answer simple questions. He is somewhat tachypneic, but not in any acute distress at present. He has a nasogastric tube in place and using oxygen via high-flow nasal cannula. PHYSICAL EXAMINATION: Temperature 97.8 degrees Fahrenheit, heart rate 72 per minute and respiratory rate 20 per minute. Blood pressure 124/65 mmHg and oxygen saturation 96%. His head is atraumatic. Neck supple and jugular venous distention (JVD) difficult to be assessed. Nasogastric tube is in place. Heart sounds are regular and lungs with diminished breath sounds at dependent parts. Abdomen: Soft and nontender and bowel sounds are normal. Extremities: Without any cyanosis or clubbing. Hemodialysis catheter is intact on right upper chest without any signs of infection. Neurologically, the patient is awake and able to answer simple questions through the underwriting support specialist. Today's labs show sodium level 136, potassium 4.9, CO2 22, BUN 140 and creatinine 9.8. Glucose 141 and hemoglobin A1c 6.7. His calcium level is 8.9 and phosphorus 11.7. Total protein 7.2 and albumin 2.6. WBC count is 23.1, hemoglobin 10.2 and hematocrit 30.7. PROBLEMS: 1. Shortness of breath. The patient does have history of volume overload and congestive heart failure. He is tachypneic this morning and requiring further assistance with his respiratory status. He does not seem to be at any emergent risk for intubation and we will try to prevent it with fluid removal and try to correct his volume status. I have called for emergent dialysis and we will try to remove about 3 liters of fluid as tolerated. 2. End-stage renal disease. The patient has been dialyzed through this hospitalization and seems to have significantly elevated BUN and creatinine. We are now going to perform just ultrafiltration today, but will perform a regular dialysis in order to remove any suspicion for uremia. 3. Hyponatremia and hyperkalemia. He did have dialysis and his electrolytes have already improved. We will continue to monitor closely. 4. Hyperphosphatemia. Most likely related to tube feeding and he has not been able to swallow pills at present. We will not give him any oral phosphate binder but we can add some through the nasogastric (NG) tube. 5. Anemia. His anemia is stable and does not need any urgent intervention. 6. Recent stroke and altered mentation. The patient seems to be gradually improving with his altered mentation. He continues to have underwriting support specialist present on the bedside. Critical care time spent on the bedside was 23 minutes, during which no procedures were performed.
[2019-03-30] MEDS ORDERED: SUCCINYLCHOLINE INJ 200 MG/10 ML VIAL (J0330) As Ordered ONE (17:18)
[2019-03-30] MEDS ORDERED: LIDOCAINE 1% MDV 20ML VIAL As Ordered ONE (17:31)
[2019-03-30] MEDS ORDERED: PROPOFOL 1,000 MG/100 ML VIAL As Ordered ONE (17:33)
[2019-03-30] MEDS: propofoL 1,000 MG in IV 1 EA IV SCH ×2 (17:35→18:37)
[2019-03-30] MEDS ORDERED: ACETYLCYSTEINE 20% 4 ML VIAL (200MG/ML) INH SCH (18:00)
[2019-03-30 18:15] LABS: ABG BASE EXCESS -4.7 (-2.0-2.0); ABG HCO3 18.7 MEQ/L (22.0-26.0); ABG O2 SATURATION 94.7 % (95.0-99.0); ABG PARTIAL PRESSURE CO2 29.4 mmHg (35.0-45.0); ABG PARTIAL PRESSURE O2 78.4 mmHg (75.0-100.0); ABG STANDARD HCO3 20.5 MEQ/L (22.0-26.0); ABG TOTAL CO2 19.6 MEQ/L (22.0-29.0); ABG pH (ARTERIAL) 7.421 UNITS (7.350-7.450)
--- NOTE | 2019-03-30 18:23 | ROOPDOC ---
[facility] Report Of Operation Report of Operation DATE OF PROCEDURE: 03/30/2019 PROCEDURE: Endotracheal intubation. INDICATION: Metabolic encephalopathy, acute hypoxic respiratory failure CONSENT: Emergent need consent implied PROCEDURE NOTE: A timeout was called prior to procedure verifying patient, procedure, indication, and necessary treatment. The patient with placed in supine position with head of the bed at 30. Patient was sedated with etomidate 30 mg and succi wayne 120 mg. An oral airway was placed and the patient was easily ventilated with an Ambu bag. A MAC 4 Glidescope was inserted into the oropharynx with adequate view of the vocal cords. A [8.0] ETT was visualized passing through the vocal cords. The stylette was removed. Bilateral breath sounds were heard. The ETT tube was placed at 24 cm at the teeth. Chest x-ray confirmed appr opriate position above the fam. The patient tolerated the procedure well without any immediate complications noted. BINDU OROURKE DO Mar 30, 2019 18:23
[2019-03-30] MEDS ORDERED: SUCCINYLCHOLINE INJ 200 MG/10 ML VIAL (J0330) IV ONE (18:30)
[2019-03-30] MEDS ORDERED: ETOMIDATE INJ 20MG/10ML VIAL IV ONE (18:30)
--- NOTE | 2019-03-30 19:36 | REPVR ---
PROCEDURE INFORMATION: Exam: CT Head Without Contrast Exam date and time: 03/30/2019 6:50 PM Age: 48 years old Clinical indication: Altered mental status/memory loss; Confusion or disorientation; Additional info: AMS TECHNIQUE: Imaging protocol: Computed tomography of the head without contrast. Axial and coronal reformatted images were created and reviewed. Radiation optimization: All CT scans at this facility use at least one of these dose optimization techniques: automated exposure control; mA and/or kV adjustment per patient size (includes targeted exams where dose is matched to clinical indication); or iterative reconstruction. COMPARISON: CT Head without contrast 03/23/2019 5:02 AM FINDINGS: Brain: Patchy areas of hypoattenuation in the periventricular and subcortical white matter, consistent with chronic small vessel ischemic disease. Focal, well-circumscribed hypodensities in the basal ganglia, thalami and right cerebellum, consistent with chronic lacunar infarcts. No CT evidence of acute intracranial hemorrhage or acute territorial infarction. No significant mass effect or midline shift. Basal cisterns patent. Ventricles: Prominence of the cortical sulci, cisterns and ventricular system, consistent with cerebral and cerebellar volume loss. Bones/joints: No acute osseous abnormality. Sinuses: Grossly unremarkable. Mastoid air cells: Grossly unremarkable. Soft tissues: Grossly unremarkable. Vasculature: Calcific atherosclerotic disease in the cavernous internal carotid arteries, as well as the vertebro-basilar system. IMPRESSION: 1. No CT evidence of acute intracranial pathology. 2. Additional findings, as above. Electronically signed by: Constantino Meehan On 03/30/2019 19:36:30 PM
[2019-03-30] MEDS: CHLORHEXIDINE GLUCONATE 0.12 % 15ML UDC (PERIDEX ORAL RINSE) MT SCH (20:13)
[2019-03-30] MEDS: guaiFENesin ER 600 MG TAB PO SCH (20:13)
[2019-03-30] MEDS: ATORVASTATIN 20 MG TAB NG SCH (20:14)
[2019-03-30] MEDS: LEVEMIR (INSULIN DETEMIR) 1 UNITS/0.01ML SC SCH (20:15)
[2019-03-30] MEDS: **NOTE PATIENT COMMENT** MISC XX SCH (20:15)
[2019-03-30] MEDS: methylPREDNISolone INJ 40 MG/1 ML VIAL (J2920) IV SCH (20:15)
--- NOTE | 2019-03-30 22:15 | ROOPDOC ---
[facility] [place] Report Of Operation Report of Operation DATE OF PROCEDURE: 03/30/19 PROCEDURE: Bronchoscopy with bronchial alveolar lavage. INDICATION: Acute hypoxic respiratory failure with concern for mucous plugging CONSENT: Emergent need consent implied PROCEDURE NOTE: A timeout was performed verifying correct patient, procedure, and equipment. Nilsa ient was intubated just prior to procedure. Patient was preoxygenated with 100% FiO2. The disposable glide scope bronchoscopy was inserted through the endotracheal tube. There was initial thick sputum suctioned from the distal portion of the endotracheal tube. The bronchoscope was then advanced to the main fam. 2 mL of 1% lidocaine was instilled at the level of the fam. The scope was advanced to left main bronchus the left upper lobe including the segments of the division of the left upper lobe and the lingula were inspected with no notable secretions normal mucosa. The left lower lobe segments were then inspected which are soon noted to be free of secretions and marginally normal. The bronchoscope was then retracted to the level of the main fam and advanced into the right main bronchus. The right middle lobe was inspected and appeared to be normal with minimal secretions. The bronchoscope was wedged at the level of the right middle lobe segments and was lavaged with 10 mL of sterile saline. Upon inspection of the right lower lobes segments there was partially obstructive thick mucous secretions noted which were lavaged and suctioned and cleared. The right upper lobe segments were inspected with all segments visualized with no secretions noted and normal mucosa. On final inspection all bronchial segments were visualized were clear mucus, had minimal secretions present, with normal to mildly irritated mucosa present. The bronchoscope was withdrawn. Upon retraction it was noted that the endotracheal tube was appropriately positioned above the level of the main fam. Patient's oxygen saturation remained above 95% throughout the duration of the procedure. He remained hemodynamically stable. There are no apparent complications. Chest x-ray was independently visualized with out any obvious acute abnormalities. And no pneumothorax identified. Final read by radiology pending. BINDU OROURKE DO Mar 30, 2019 18:23
--- NOTE | 2019-03-30 22:30 | IPNPDOC ---
Date Seen The patient was seen on 03/30/19. Progress Note SUBJECTIVE: Patient seen and examined. No acute events overnight, however, this morning patient noted to have increased work of breathing and tachypnea requiring an increase in Vapotherm oxygen delivery and FiO2. In the morning patient is initially awake alert and tracking, by the medics interpreters knotting of the head and answers all questions with shaking his head yes. Patient does not appear to be as alert as previous day since he is no longer effectively communicating or signing with wind project manager. Patient planned for dialysis today given change in mentation and shortness of breath. During dialysis. Patient noted to be de-satting. He was started on BiPAP. Shortly after BiPAP was initiated he became unresponsive and decision was made to intubate. Britt was called who gave verbal consent for emergent intubation. Given patient's frequent sputum production there was concern for mucous plugging and excessive bronchial secretions. At that bronchoscopy was performed following intubation, however minimal mucus was noted in the airways with only a small amount of mucus noted in the right lower lung which was easily cleared with suction. Patient is currently intubated. OBJECTIVE: Vitals: See below Physical exam reflective of most recent exam done after intubation it 5:45 PM GENERAL: Intubated and sedated on propofol HENT: Normocephalic, atraumatic EYES: Pupils equal round and reactive to light, no scleral icterus CARDIOVASCULAR: Regular rate and rhythm, no lower extremity edema RESPIRATORY: Clear to auscultation bilaterally ABDOMINAL: Soft, nondistended, positive bowel sounds EXTREMITIES: Currently sedated without spontaneous movement of upper or lower extremities NEUROLOGICAL: Sedated SKIN: Warm and dry LABORATORY, MICRO, IMAGES: See below ASSESSMENT/PLAN: Patient is a 48-year-old male who presented to [facility] emergency department on 03/19/2019 after an out of hospital cardiac arrest. Patient reportedly at dialysis Center. He reportedly had completed dialysis and was standing to take a blood pressure when he collapsed and had possible seizure-like activity. Per review of hospital records, patient unresponsive and in PEA when EMS presented. ROSC was retrieved after approximately 10 minutes out of hospital CPR. Patient was admitted to the ICU and underwent targeted temperature management. Patient was extubated on 03/27/2019, however, required reintubation for airway edema and started on Decadron. Patient successfully extubated 03/28/2019. During the course of hospital stay, patient with increased lethargy and increased work of breathing necessitating re-intubation on 03/30/2019. #PEA Cardiac Arrest s/p ROSC - Unknown etiology, but likely hypoperfusion following dialysis s/p ROSC, TTM with meaningful neurologic recovery - Echo (03/24) with normal ejection fraction of 70% - MRI consistent with multiple acute and subacute bilateral CVAs - Patient became unresponsive during HD #Acute hypoxic and hypercapnic respiratory failure - Likely secondary to laryngeal airway edema, and pneumonia, and bronchospasm - Patient initially intubated on 03/19. Attempted expiration 03/27 however patient failed due to airway edema and was reintubated 03/27. Extubated (03/28) and reintubated again on 03/30 - We'll continue antibiotics with Levaquin (03/26-present),sputum cultures with yeast. Repeat sputum with bronch - Will start Solumedrol 40mg BID - Chest PT, hypertonic saline nebulizers for secretions - Continue Ventilator management, will plan for sedation vacation and SBT in the am - Propofol for sedation. If patient hypotensive will change to precedex - Titrate O2 to keep SpO2 > 92% #Laryngeal Airway Edema - Improving - Given prolonged intubation and edema and CVAs will order speech evaluation prior to PO intake #Pneumonia - Will continue Levaquin. Repeat cultures today #DM2 - Continue sliding scale. Increase Lantus 16U, and scheduled Lispro. #Multiple bilateral CVAs - Unclear etiology at this time. Given possible underlining embolic phenomenon would consider AMMY for further evaluation - Aspirin 324 g daily, and Lipitor - Will consider AMMY given increased WBC, procalcitonin and embolic phenomenon noted on MRI - Neurology following #Back pain from sacral fissure - [place], Dilaudid PRN. Monitor respiratory status #Hypertriglyceridemia - Add lipitor #ESRD - Plan for dialysis Sunday - Nephrology following #Hypertension - Continue amlodipine 10 mg daily, carvedilol 25 mg twice a day, hydralazine 100 mg every 8 #Deaf - Lumber Racker requested and currently at the bedside Diet: Resume tube feeds with Nepro 30cc/hr hold beniprotein DVT/GI ppx: Heparin SubQ, Protonix Vent: 8.0 ETT 24@lip, PRVC 16, 550, 40%, 5 L/T/D: NG, Right IJ Tunneled catheter (ECOLOGICAL TECHNICAL OFFICER) Drips: Propofol Code Status: Full Code. is currently the decision-maker. Will plan for goals of care discussion in the morning. Palliative care consulted. Dispo: Will continue to monitor in the ICU while intubated Critical Care Time: 40 minutes. Time spent at the bedside or immediate available evaluation and monitoring effect of interventions. Time independent of other billable procedures. [place] VS, I&O, 24H, Fishbone Vital Signs/I&O Vital Signs Date Time Temp Pulse Resp B/P (MAP) Pulse Ox O2 Delivery O2 Flow Rate FiO2 03/30/19 22:00 90 28 94/52 (66) 92 Ventilator 70 03/30/19 20:00 99.2 03/30/19 16:52 30.0 I&O- Last 24 Hours up to 6 AM 03/30/19 05:59 Intake Total 1785 ml Output Total 0 ml Balance 1785 ml Laboratory Data 24H LABS Laboratory Tests 2 03/29/19 23:21: Bedside Glucose (Misc Panel) 148H 03/30/19 04:36: Immature Granulocyte % (Auto) 3.6H, Neutrophils (%) (Auto) 69.7H, Lymphocytes (%) (Auto) 17.2L, Monocytes (%) (Auto) 9.1H, Eosinophils (%) (Auto) 0.0, Basoph ils (%) (Auto) 0.4, Neutrophils # (Auto) 16.1H, Lymphocytes # (Auto) 4.0, Monocytes # (Auto) 2.1H, Eosinophils # (Auto) 0.0, Basophils # (Auto) 0.1, Nucleated Red Blood Cells % (auto) 0.0, Anion Gap 19H, Glomerular Filtration Rate 6.1L, Estimated Mean Plasma Glucose 146H, Hemoglobin A1c 6.7, Calcium Level 8.9, Phosphorus Level 11.7#H, Magnesium Level 3.4H, Total Bilirubin 0.4, Aspartate Amino Transf (AST/SGOT) 16, Alanine Aminotransferase (ALT/SGPT) 29, Alkaline Phosphatase 119H, Lactate Dehydrogenase 253H, Total Creatine Kinase 129, Total Protein 7.2, Albumin 2.6L, Albumin/Globulin Ratio 0.57L, Triglycerides Level 440H, Cholesterol Level 171 03/30/19 05:32: Bedside Glucose (Misc Panel) 155H 03/30/19 12:19: Bedside Glucose (Misc Panel) 168H 03/30/19 16:52: Blood Gas Bicarbonate Standard 22.0, Arterial Blood pH 7.472H, Arterial Blood Partial Pressure CO2 27.6L, Arterial Blood Partial Pressure O2 50.4L, Arterial Blood Total CO2 20.6L, Arterial Blood HCO3 19.7L, Arterial Blood Base Excess - 2.7L, Arterial Blood Oxygen Saturation 85.6L 03/30/19 17:27: Bedside Glucose (Misc Panel) 166H 03/30/19 18:10: Blood Gas Bicarbonate Standard 20.5L, Arterial Blood pH 7.421, Arterial Blood Partial Pressure CO2 29.4L, Arterial Blood Partial Pressure O2 78.4, Arterial Blood Total CO2 19.6L, Arterial Blood HCO3 18.7L, Arterial Blood Base Excess - 4.7L, Arterial Blood Oxygen Saturation 94.7L 03/30/19 20:20: Bedside Glucose (Misc Panel) 211H CBC/BMP Laboratory Tests 03/30/19 04:36 Microbiology Microbiology 03/30/19 Gram Stain, Received Pending 03/30/19 Sputum Culture, Received Pending 03/26/19 Gram Stain - Final, Complete 03/26/19 Sputum Culture - Final, Complete Yeast Like Organism 03/23/19 Gram Stain - Final, Complete 03/23/19 Sputum Culture - Final, Complete 03/20/19 Blood Culture - Final, Complete NO GROWTH AFTER 5 DAYS 03/20/19 Blood Culture - Final, Complete NO GROWTH AFTER 5 DAYS BINDU OROURKE DO Mar 30, 2019 22:30
[2019-03-31] VITALS (51 sets, daily range): BP systolic 88–132; BP diastolic 44–71; O2SAT 93–100
[2019-03-31] MEDS: ALBUTEROL SULFATE 2.5 MG/0.5 ML INH NEB SOLN NEB SCH ×6 (03:14→23:49)
[2019-03-31] MEDS: SODIUM CHLORIDE HYPERTONIC 3% 15ML NEB SOL INH SCH ×6 (03:14→23:49)
[2019-03-31 05:06] LABS: BASO # 0.1 10^3/uL (0.0-0.2); BASO % 0.3 % (0.0-1.0); HEMATOCRIT 31.2 % (42.0-52.0); HEMOGLOBIN 10.5 g/dl (13.5-17.5); LYMPH # 2.9 10^3/uL (1.5-5.0); LYMPH % 9.5 % (24.0-44.0); MEAN CORPUSCULAR HEMOGLOBIN 31.1 pg (27.0-33.0); MEAN CORPUSCULAR HGB CONC 33.7 g/dl (32.0-36.5); MEAN CORPUSCULAR VOLUME 92.3 fl (80.0-96.0); MONO # 1.6 10^3/uL (0.0-0.8); MONO % 5.4 % (0.0-5.0); NEUTROPHILS # 24.9 10^3/uL (1.5-8.5); NEUTROPHILS % 82.1 % (36.0-66.0); PLATELET COUNT, AUTOMATED 379 10^3/uL (150-450); RED BLOOD COUNT 3.38 10^6/uL (4.30-6.10)
[2019-03-31] MEDS: HEPARIN SOD (PORCINE) 5000 UNITS/ML VIAL (J1644 PER 1000UNITS) SC SCH ×3 (05:27→21:14)
[2019-03-31] MEDS: **hydrALAZINE** 50 MG TAB NG SCH ×3 (05:28→21:14)
[2019-03-31 05:30] LABS: ABG BASE EXCESS -5.5 (-2.0-2.0); ABG HCO3 18.2 MEQ/L (22.0-26.0); ABG O2 SATURATION 97.8 % (95.0-99.0); ABG PARTIAL PRESSURE CO2 29.5 mmHg (35.0-45.0); ABG PARTIAL PRESSURE O2 111.4 mmHg (75.0-100.0); ABG TOTAL CO2 19.1 MEQ/L (22.0-29.0); ABG pH (ARTERIAL) 7.408 UNITS (7.350-7.450)
[2019-03-31] MEDS: HumaLOG INSULIN (NovoLOG) PER UNIT SC SCH ×6 (05:34→23:42)
[2019-03-31 05:44] LABS: WHITE BLOOD COUNT 30.4 10^3/uL (4.0-10.0)
[2019-03-31 06:01] LABS: ALBUMIN 2.2 GM/DL (3.2-5.2); BILIRUBIN,TOTAL 0.4 MG/DL (0.2-1.0); CALCIUM LEVEL 8.9 MG/DL (8.5-10.1); CREATININE FOR GFR 9.35 MG/DL (0.70-1.30); GLOMERULAR FILTRATION RATE 6.4 (>60); MAGNESIUM LEVEL 3.2 MG/DL (1.8-2.4); PHOSPHORUS LEVEL 9.3 MG/DL (2.5-4.9); POTASSIUM SERUM 6.1 MEQ/L (3.5-5.1); TOTAL PROTEIN 7.7 GM/DL (6.4-8.2)
--- NOTE | 2019-03-31 07:53 | REP ---
Portable chest, 05:50 p.m., single AP view with the patient semi upright: Comparison is 03/30/2019. The right hemidiaphragm is elevated. There is atelectasis in the right lung above the elevated right hemidiaphragm. Right lung is otherwise clear. The left lung is clear. The cardiac size is normal. The niya, mediastinum, skeletal structures are unremarkable. The the right IJ double lumen central venous catheter tip is in the superior vena cava. Endotracheal tube is at the level of the aortic arch in satisfactory position. The nasogastric tube terminates in the upper abdomen although the precise location of the distal tip is excluded at the inferior film margin. Impression: Elevated right hemidiaphragm. Atelectasis above the elevated right hemidiaphragm. Electronically Signed by Jacob Cleary MD 03/31/2019 07:45 A
[2019-03-31] MEDS ORDERED: HumuLIN R (REGULAR) INSULIN (NovoLIN R) **100U/ML** PER UNIT IV STA (08:13)
[2019-03-31] MEDS: ASPIRIN 81 MG CHEW TABLET GT SCH (08:40)
[2019-03-31] MEDS: CARVedilol 12.5 MG TAB NG SCH ×2 (08:41→20:10)
[2019-03-31] MEDS: CHLORHEXIDINE GLUCONATE 0.12 % 15ML UDC (PERIDEX ORAL RINSE) MT SCH ×4 (08:41→20:08)
[2019-03-31] MEDS: LOSARTAN 50 MG TAB NG SCH ×2 (08:41→20:09)
[2019-03-31] MEDS: amLODIPine 10 MG TAB NG SCH (08:42)
[2019-03-31] MEDS: PANTOPRAZOLE 40MG INJ (PROTONIX) (C9113) IV SCH (08:42)
[2019-03-31] MEDS: guaiFENesin ER 600 MG TAB PO SCH ×2 (08:42→20:11)
[2019-03-31] MEDS: methylPREDNISolone INJ 40 MG/1 ML VIAL (J2920) IV SCH ×2 (08:43→20:09)
[2019-03-31] MEDS: LIDOCAINE 5% (LIDODERM) PATCH TD SCH (08:43)
[2019-03-31] MEDS: NORCO, ANEXSIA 5/325MG TABLET (HYDROcodone/ACETAMINOPHEN) PO PRN (08:57)
[2019-03-31] MEDS ORDERED: HEPARIN 1,000 UNITS/ML 10ML VIAL (FOR RADIOLOGY& DIALYSIS ONLY)(J1644-10) XX ONE (10:00)
[2019-03-31] MEDS ORDERED: levETIRAcetam INJection 500 MG in D5W MINI-BAG PLUS 100 ML IV SCH (11:00)
--- NOTE | 2019-03-31 12:01 | IPNPDOC ---
Date Seen The patient was seen on 03/31/19. Progress Note SUBJECTIVE: Patient seen and examined. No acute events overnight, patient remains intubated without complication. He is not requiring any sedation, but his mental status is worse than yesterday as now he is no longer signing or shaking his head yes in response to questions. and mother were present this morning at different times at bedside, we had a long discussion with his , Britt, who is his HCP regarding steps moving forward if he failed his next trial of extubation including plans for tracheostomy placement with subsequent [facility] as well as the possibility of making him comfortable and not replacing his endotracheal tube should he be unable to breath on his own. She wanted more time to consider but did believe it to be his wishes that he not have a tracheostomy in place. OBJECTIVE: Vitals: See below GENERAL: Intubated, not on sedation, opens eyes spontaneously, but not responding to questions with signing or head nodding. HENT: Normocephalic, atraumatic EYES: Pupils equal round and reactive to light, no scleral icterus CARDIOVASCULAR: Regular rate and rhythm, no lower extremity edema RESPIRATORY: Clear to auscultation bilaterally, no wheezes, crackles, or rhonchi appreciated on auscultation. ABDOMINAL: Soft, nondistended, positive bowel sounds EXTREMITIES: Able to move his head, left upper extremity and lower extremities with some purposeful movement. NEUROLOGICAL: Alert, not responding to interpreters communication, moving LUE bilateral LE. CN2-12 intact. SKIN: Warm and dry, purple colored 2-3 cm wound present on sacrum over bilateral intragluteal cleft LABORATORY, MICRO, IMAGES: See below ASSESSMENT/PLAN: Patient is a 48-year-old male who presented to [facility] emergency department on 03/19/2019 after an out of hospital cardiac arrest. Patient reportedly at dialysis Center. He reportedly had completed dialysis and was standing to take a blood pressure when he collapsed and had possible seizure-like activity. Per review of hospital records, patient unresponsive and in PEA when EMS presented. ROSC was retrieved after approximately 10 minutes out of hospital CPR. Patient was admitted to the ICU and underwent targeted temperature management. Patient was extubated on 03/27/2019, however, required reintubation for airway edema and started on Decadron. Patient successfully extubated 03/28/2019. During dialysis on 03/30/2019, patient was noted to be de-satting, trialed on bipap, became unresponsive and decision was made to re-intubate after consent obtained from . Bronchoscopy was performed at bedside without significant findings and only a small amount of mucous was noted in the right lower lung. #PEA Cardiac Arrest s/p ROSC - Unknown etiology, but likely hypoperfusion following dialysis s/p ROSC, TTM with meaningful neurologic recovery - Echo (03/24) with normal ejection fraction of 70%. - MRI consistent with multiple acute and subacute bilateral CVAs - Patient became unresponsive during HD #Acute hypoxic and hypercapnic respiratory failure - Likely secondary to laryngeal airway edema, pneumonia, and bronchospasm - Patient initially intubated on 03/19. Attempted extubation on 03/27 however patient failed due to airway edema and was reintubated 03/27. Extubated (03/28) and reintubated again on 03/30. Unclear etiology for current intubation, ordering CT chest to see if their has been a change from prior CT. Ultimately, if no reversible cause is found patient will require tracheostomy tube to be placed. Have had discussion with regarding patient's wishes and she seems to think it is not something he would want. She requested more time to think about it ultimately. We did discuss that if a tracheostomy tube was not placed and he was extubated their is a chance the patient would if he was unable to breath on his own. - We'll continue antibiotics with Levaquin (03/26-present) (ABX day 5),sputum cultures with yeast. Repeat sputum with bronch - Will start Solumedrol 40mg BID (day 2) - Chest PT, hypertonic saline nebulizers for secretions - Continue Ventilator management, will plan for SBT after dialysis - Propofol for sedation. If patient hypotensive will change to precedex - Titrate O2 to keep SpO2 > 92% #Multiple bilateral CVAs - Patient has a history of a PFO, with AMMY performed on 12/25/[address] Monroe cameron. Patient at that time was referred to [facility] for consideration of closure, but they wanted to wait 6 months prior to acting. - Unclear etiology at this time. Most recent TTE not showing clear etiology of strokes - Aspirin 324 g daily, and Lipitor - Will consider AMMY given increased WBC, procalcitonin and embolic phenomenon noted on MRI - Neurology following #Leukocytosis - Possibly secondary to pneumonia and IV steroids, however he has been on Levaquin now for 5 days without significant change and I would not expect steroids elevate it to this extent. He has had a CT done of his chest and head that did not show any acute pathology, may consider CT abd/pelvis to look for abscess however patient has been afebrile since 03/26/2019. Moreover patient's sacral wound could also be contributing however it is unclear how old this wound is at this point. Will consult wound care for evaluation and initial recommendations. #Laryngeal Airway Edema - Improving - Given prolonged intubation and edema and CVAs will order speech evaluation prior to PO intake #Pneumonia - Will continue Levaquin (day 5). Repeat cultures today - Procalcitonin level pending. #DM2 - Continue sliding scale every 6 hours, scheduled lispro increased from 5 to 10 units given increased glucose levels likely secondary to solumedrol addition. Will continue lantus at 16 Units QHS. #Back pain from sacral fissure - Balm, Dilaudid PRN. Monitor respiratory status #Hypertriglyceridemia - Continue lipitor #ESRD - Plan for dialysis Sunday - Nephrology following #Hypertension - Continue amlodipine 10 mg daily, carvedilol 25 mg twice a day, hydralazine 100 mg every 8 #Deaf - Guest Service Supervisor requested and currently at the bedside Diet: Continue tube feeds with Nepro 30cc/hr hold beniprotein DVT/GI ppx: Heparin SubQ, Protonix Vent: 8.0 ETT 24@lip, CPAP 5/5 40% L/T/D: NG, Right IJ Tunneled catheter (TEMPERATURE CONTROL INSPECTOR) Drips: none VS, I&O, 24H, Fishbone Vital Signs/I&O Vital Signs Date Time Temp Pulse Resp B/P (MAP) Pulse Ox O2 Delivery O2 Flow Rate FiO2 03/31/19 10:46 78 18 114/56 (75) 93 Ventilator 50 03/31/19 08:00 97.2 03/30/19 16:52 30.0 I&O- Last 24 Hours up to 6 AM 03/31/19 06:00 Intake Total 495 ml Output Total 1369 ml Balance -874 ml Laboratory Data 24H LABS Laboratory Tests 2 03/30/19 12:19: Bedside Glucose (Misc Panel) 168H 03/30/19 16:52: Blood Gas Bicarbonate Standard 22.0, Arterial Blood pH 7.472H, Arterial Blood Partial Pressure CO2 27.6L, Arterial Blood Partial Pressure O2 50.4L, Arterial Blood Total CO2 20.6L, Arterial Blood HCO3 19.7L, Arterial Blood Base Excess - 2.7L, Arterial Blood Oxygen Saturation 85.6L 03/30/19 17:27: Bedside Glucose (Misc Panel) 166H 03/30/19 18:10: Blood Gas Bicarbonate Standard 20.5L, Arterial Blood pH 7.421, Arterial Blood Partial Pressure CO2 29.4L, Arterial Blood Partial Pressure O2 78.4, Arterial Blood Total CO2 19.6L, Arterial Blood HCO3 18.7L, Arterial Blood Base Excess - 4.7L, Arterial Blood Oxygen Saturation 94.7L 03/30/19 20:20: Bedside Glucose (Misc Panel) 211H 03/30/19 23:18: Bedside Glucose (Misc Panel) 229H 03/31/19 04:49: Immature Granulocyte % (Auto) 2.7, Neutrophils (%) (Auto) 82.1H, Lymphocytes (%) (Auto) 9.5L, Monocytes (%) (Auto) 5.4H, Eosinophils (%) (Auto) 0.0, Basophils (%) (Auto) 0.3, Neutrophils # (Auto) 24.9H, Lymphocytes # (Auto) 2.9, Monocytes # (Auto) 1.6H, Eosinophils # (Auto) 0.0, Basophils # (Auto) 0.1, Nucleated Red Blood Cells % (auto) 0.1H, Anion Gap 18H, Glomerular Filtration Rate 6.4L, Calcium Level 8.9, Phosphorus Level 9.3#H, Magnesium Level 3.2H, Total Bilirubin 0.4, Aspartate Amino Transf (AST/SGOT) 22, Alanine Aminotransferase (ALT/SGPT) 36, Alkaline Phosphatase 122H, Lactate Dehydrogenase 235, Total Creatine Kinase 116, Total Protein 7.7, Albumin 2.2L, Albumin/Globulin Ratio 0.40L, Triglycerides Level 320H, Cholesterol Level 128 03/31/19 05:18: Blood Gas Bicarbonate Standard 20.0L, Arterial Blood pH 7.408, Arterial Blood Partial Pressure CO2 29.5L, Arterial Blood Partial Pressure O2 111.4H, Arterial Blood Total CO2 19.1L, Arterial Blood HCO3 18.2L, Arterial Blood Base Excess - 5.5L, Arterial Blood Oxygen Saturation 97.8 03/31/19 05:30: Bedside Glucose (Misc Panel) 336H CBC/BMP Laboratory Tests 03/31/19 04:49 Microbiology Microbiology 03/30/19 Gram Stain - Final, Resulted 03/30/19 Sputum Culture, Resulted Pending 03/26/19 Gram Stain - Final, Complete 03/26/19 Sputum Culture - Final, Complete Yeast Like Organism 03/23/19 Gram Stain - Final, Complete 03/23/19 Sputum Culture - Final, Complete GME ATTESTATION GME ATTESTATION My faculty preceptor for this patient encounter was physically present during the encounter and was fully available. All aspects of the patient interview, examination, medical decision making process, and medical care plan development were reviewed and approved by the faculty preceptor. The faculty preceptor is aware and concurs with the plan as stated in the body of this note and will attest to such by his/her cosignature. ATTENDING NOTE Patient seen and examined independently and with resident. Agree with history, physical, and assessment and plan above, except as otherwise noted below. Patient spontaneously opens eyes and tracks, but does not follow commands or answer yes/no questions. Patient remains intubated on the ventilatory, however, was titrated to CPAP today. Patient with repeat HD today as labs showed hyperkalemia and uremia. Labs following HD with improvement in uremia, however mentation did not improve. Examined sacral wound which appears to be infected and the probable source of significant leukocytosis and altered mentation. Surrounding skin appears necrotic and will likely require debridement. Wound care was consulted. Will continue antibiotics. Patient with limited antibiotic choice as he suffers from anaphylactic reaction to penicillins per chart. Assessment 1. Acute hypoxic hypercapnic respiratory failure 2. Metabolic encephalopathy 3. Sepsis 4. Sacral decubitus ulcer with necrosis 5. End-stage renal disease 6. Hyperkalemia Code Status: DNR. Had lengthy discussion with (Britt) today. Will continue current treatment with daily SBT with goal of achieving a safe extubation plan. However, in the event of failed extubation, patient is not to be re-intubated as tracheostomy would not be in the patient's wishes. Patient also made DNR. MOLST form sign and in chart. Copy given to . Dispo: Will continue to monitor in ICU while intubated. Critical Care Time: 65 minutes. Time spent discussion goals of care with the . Time also inclusive of a evaluation and titration of the ventilator. Billin TAYLOR MERINO DO Mar 31, 2019 12:01 BINDU OROURKE DO Mar 31, 2019 17:17
[2019-03-31] MEDS: levETIRAcetam INJection 500 MG in D5W MINI-BAG PLUS 100 ML IV SCH (14:21)
[2019-03-31] MEDS ORDERED: PILL CUTTER 1 EACH XX PRN (14:45)
[2019-03-31 14:48] LABS: ALBUMIN 2.5 GM/DL (3.2-5.2); CALCIUM LEVEL 9.2 MG/DL (8.5-10.1); CREATININE FOR GFR 3.88 MG/DL (0.70-1.30); GLOMERULAR FILTRATION RATE 17.8 (>60); MAGNESIUM LEVEL 2.6 MG/DL (1.8-2.4); PHOSPHORUS LEVEL 4.7 MG/DL (2.5-4.9); POTASSIUM SERUM 3.7 MEQ/L (3.5-5.1)
[2019-03-31] MEDS: FAMOTIDINE 20 MG TAB PO SCH ×2 (15:24→20:09)
--- NOTE | 2019-03-31 16:36 | REP ---
CT of the chest without IV contrast: Comparison is the portable chest performed earlier today. There is a large infiltrate occupying the entire right lower lobe. This is a The right hemidiaphragm on the portable chest earlier today. There is a tiny infiltrate posteriorly inferiorly in the right upper lobe. The remainder of the right upper lobe is clear. The right middle lobe is clear. The left lung is clear. There are no pleural effusions. There is no mediastinal or axillary adenopathy. The study is insensitive for hilar adenopathy in the absence of IV contrast. The unenhanced thoracic aorta is unremarkable. Cardiac size is normal. I suspect there are coronary artery vascular grafts. Large right lower lobe infiltrate involving the tire right lower lobe. There is an endotracheal tube terminating in the trachea above the fam. There is a nasogastric tube terminating in the upper abdomen. The precise location of the distal tip traverses the stomach and resides in small bowel loops in this patient with bariatric surgery. Upper abdomen: There is milk of calcium versus multiple small gallbladder calculi in the dependent gallbladder. The visualized upper abdomen is otherwise unremarkable. Impression: There is a large right lower lobe infiltrate. This is a moderate right hemidiaphragm on the portable chest earlier today and cannot be seen on the portable study. Electronically Signed by Jacob Cleary MD 03/31/2019 04:28 P
[2019-03-31] MEDS: LevoFLOXacin IV 250 MG in IV 1 EA IV SCH (17:09)
[2019-03-31] MEDS ORDERED: CEFEPIME HCL 0.5 GM in D5W 50 ML IV ONE ×2 (19:15→22:00)
[2019-03-31] MEDS: metroNIDAZOLE 500 MG in IV 1 EA IV SCH (20:08)
[2019-03-31] MEDS: LEVEMIR (INSULIN DETEMIR) 1 UNITS/0.01ML SC SCH (20:08)
[2019-03-31] MEDS: ATORVASTATIN 20 MG TAB NG SCH (20:09)
[2019-03-31] MEDS: **NOTE PATIENT COMMENT** MISC XX SCH (20:23)
--- NOTE | 2019-03-31 20:32 | IPN ---
DATE: 03/31/2019 Mr. Maciel is seen during hemodialysis this morning. Yesterday, his dialysis was terminated only after about 2 hours due to respiratory failure and requiring intubation. His volume status has been very well-compensated but etiology of his respiratory failure is still unclear. He did have a bronchoscopy and his lungs are reported to be clear. His chest x-ray did not show any acute infiltrate or effusion. In the meantime, he remains somewhat lethargic though at times his eyes are open and he does respond. PHYSICAL EXAMINATION: Temperature is 97.2 degrees Fahrenheit, heart rate 76 per minute and respiratory rate 18 per minute. Blood pressure 114/56 mmHg and oxygen saturation between 93% and 96%. His head is atraumatic. Neck supple and JVD difficult to be assessed, though I do not see any obvious neck veins. Endotracheal tube and nasogastric tubes are in place. Heart sounds are regular and lungs have good bilateral air entry. Abdomen soft and nontender and bowel sounds are normal. Extremities without any cyanosis or clubbing. Neurologically he is not very interactive at present. Today's labs show WBC count 30.4, hemoglobin 10.5 and hematocrit 31.2. Sodium 133, potassium 6.1, CO2 20, BUN 130 and creatinine 9.35. Glucose 337, calcium 8.9 and phosphorus 9.3. Total protein 7.7 and albumin 2.2. PROBLEMS: 1. End-stage renal disease. The patient had partial dialysis yesterday and it was terminated due to change in respiratory status. His volume status has been reasonably well-compensated so we did not feel that continuing dialysis is going to make much difference in his volume status. Anyway, he is being dialyzed again today for 3-1/2 hours and tolerating his dialysis treatment well. 2. Hyperkalemia most likely related to tube feeding. We will recheck his chemistry after dialysis and currently we are dialyzing him with 1.0 mEq potassium bath. 3. Hyperphosphatemia. His phosphorus is also quite elevated but likely to improve with dialysis today and recheck his renal profile tomorrow. 4. Altered mentation. Etiology remains uncertain and uremia certainly could be one of the possibilities. The patient is being dialyzed for 3-1/2 hours today and we will recheck his chemistry after dialysis to ensure adequate reduction in the BUN. If his URR is not adequate then we will consider to get his Perma-Cath replaced. 5. Anemia and leukocytosis. He has been on steroids which could contribute to leukocytosis but infectious causes need to be also kept in mind. His anemia is stable and does not need any urgent intervention.
--- NOTE | 2019-03-31 20:54 | PHACANCOPD ---
PHARMACY VANCOMYCIN DOSING Pt Demographics Demographics Patient Age:48 , Weight:133.000 , Gender: male Adjusted Body Weight Date: 03/31/19, Adjusted Body Weight: [103.9] Kg Events Past 24 Hours Events Past 24 Hours: NO: Dialysis, Diuretic Therapy, Change in CrCl, Fever, Elevation in WBC, Pending Diagnostics, Pending Procedures, Other Vancomycin Vancomycin indication: Sepsis Vancomycin Target Ranges: 15-20 mcg/ml Vancomycin Load Y/N: No Load Dose Date Time Vancomycin Load Dose: Date: Time: Vancomycin Dose Date: 03/31/19. Current Vancomycin Dose: [1g iv after hd] Intermittent Dosing?: No Labs Labs Item Value Date Time White Blood Count 12.9 10^3/uL H 03/27/19 0437 White Blood Count 19.3 10^3/uL H 03/28/19 0430 White Blood Count 23.8 10^3/uL H 03/29/19 0515 White Blood Count 23.1 10^3/uL H 03/30/19 0436 White Blood Count 30.4 10^3/uL *H 03/31/19 0449 Creatinine 9.35 MG/DL *H 03/31/19 0449 Creatinine 3.88 MG/DL H # 03/31/19 1310 Procalcitonin 25.54 NG/ML 03/31/19 0449 Micro Microbiology 03/31/19 Blood Culture, Received Pending 03/31/19 Blood Culture, Received Pending 03/30/19 Gram Stain - Final, Resulted 03/30/19 Sputum Culture, Resulted Pending 03/26/19 Gram Stain - Final, Complete 03/26/19 Sputum Culture - Final, Complete Yeast Like Organism 03/23/19 Gram Stain - Final, Complete 03/23/19 Sputum Culture - Final, Complete Creatinine Clearance Date:03/31/19. Creatinine Clearance: [27.8ml/min]. Pending Labs vancomycin level 04/02/19 @06:00 Assessment and Plan Maintaining Current Dose?: Yes Reason for dose change: No Dose Change Pharmacist Note Pharmacist Note Date: 03/31/19. Pharmacist note: PT is a 48 year old male being treated for sepsis goal trough 15-20mcg/ml. The patient has not been treated with vancomycin here in the past. The pt currently receives HD MWF. The patient will receive 1g vancomycin IV 03/31/19@ 21:00. Maintenance dosing will consist of 1g IV after HD. A vancomycin level is scheduled for 04/02/19 AM. We will continue to monitor and adjust the dose as needed. HUMAIRA COPPOLA PHARMACY Mar 31, 2019 20:54
[2019-03-31] MEDS ORDERED: VANCOMYCIN HCL 1,000 MG, VIAL MATE ADAPTER 1 EACH in D5W 250 ML IV ONE (21:00)
[2019-04-01] VITALS (37 sets, daily range): BP systolic 96–157; BP diastolic 55–89; O2SAT 92–99
[2019-04-01] MEDS: levETIRAcetam INJection 500 MG in D5W MINI-BAG PLUS 100 ML IV SCH ×2 (00:11→14:44)
[2019-04-01] MEDS: SODIUM CHLORIDE HYPERTONIC 3% 15ML NEB SOL INH SCH ×6 (03:48→23:16)
[2019-04-01] MEDS: ALBUTEROL SULFATE 2.5 MG/0.5 ML INH NEB SOLN NEB SCH ×6 (03:48→23:16)
[2019-04-01] MEDS: metroNIDAZOLE 500 MG in IV 1 EA IV SCH ×3 (03:52→19:37)
[2019-04-01] MEDS: HumaLOG INSULIN (NovoLOG) PER UNIT SC SCH ×2 (05:18→06:00)
[2019-04-01] MEDS: HEPARIN SOD (PORCINE) 5000 UNITS/ML VIAL (J1644 PER 1000UNITS) SC SCH ×3 (05:18→21:19)
[2019-04-01] MEDS: **hydrALAZINE** 50 MG TAB NG SCH ×3 (05:18→21:16)
[2019-04-01 05:31] LABS: HEMATOCRIT 28.9 % (42.0-52.0); HEMOGLOBIN 9.5 g/dl (13.5-17.5); MEAN CORPUSCULAR HEMOGLOBIN 31.3 pg (27.0-33.0); MEAN CORPUSCULAR HGB CONC 32.9 g/dl (32.0-36.5); MEAN CORPUSCULAR VOLUME 95.1 fl (80.0-96.0); PLATELET COUNT, AUTOMATED 376 10^3/uL (150-450); RED BLOOD COUNT 3.04 10^6/uL (4.30-6.10)
[2019-04-01 05:42] LABS: WHITE BLOOD COUNT 31.3 10^3/uL (4.0-10.0)
[2019-04-01 06:23] LABS: LYMPHOCYTES 8 % (16-44); MONOCYTES 3 % (0-5); NEUTROPHILS 89 % (28-66); PLATELET ESTIMATE NORMAL (NORMAL)
[2019-04-01 06:39] LABS: ALBUMIN 2.1 GM/DL (3.2-5.2); CALCIUM LEVEL 8.6 MG/DL (8.5-10.1); CREATININE FOR GFR 7.14 MG/DL (0.70-1.30); GLOMERULAR FILTRATION RATE 8.8 (>60); MAGNESIUM LEVEL 2.9 MG/DL (1.8-2.4); PHOSPHORUS LEVEL 10.1 MG/DL (2.5-4.9); POTASSIUM SERUM 5.2 MEQ/L (3.5-5.1)
[2019-04-01] MEDS: NORCO, ANEXSIA 5/325MG TABLET (HYDROcodone/ACETAMINOPHEN) PO PRN (08:18)
[2019-04-01] MEDS: CHLORHEXIDINE GLUCONATE 0.12 % 15ML UDC (PERIDEX ORAL RINSE) MT SCH ×4 (09:06→20:27)
[2019-04-01] MEDS: CARVedilol 12.5 MG TAB NG SCH ×2 (09:08→20:29)
[2019-04-01] MEDS: amLODIPine 10 MG TAB NG SCH (09:08)
[2019-04-01] MEDS: LOSARTAN 50 MG TAB NG SCH ×2 (09:09→20:29)
[2019-04-01 09:11] LABS: VANCOMYCIN RANDOM 13.5 UG/ML
[2019-04-01] MEDS: LIDOCAINE 5% (LIDODERM) PATCH TD SCH (09:11)
[2019-04-01] MEDS: FAMOTIDINE 20 MG TAB PO SCH ×2 (09:11→20:28)
[2019-04-01] MEDS: INSULIN HUMAN REGULAR 100 UNITS in NS 99 ML IV SCH ×2 (09:56→20:06)
[2019-04-01] MEDS: fentaNYL CITRATE 1,000 MCG in NS 80 ML IV SCH (09:57)
[2019-04-01] MEDS ORDERED: VANCOMYCIN INTERMITTENT/PULSE DOSING BY CLINICAL PHARMACIST PER DOSING PROTOCOL XX SCH (10:15)
[2019-04-01] MEDS: INSULIN IV RATE CHANGE DOCUMENTATION ML/HR XX SCH ×7 (11:06→23:17)
[2019-04-01] MEDS ORDERED: fentaNYL 100 MCG/2 ML INJECTION (J3010) IV ONE ×2 (11:30→12:00)
[2019-04-01] MEDS ORDERED: VANCOMYCIN HCL 1,000 MG, VIAL MATE ADAPTER 1 EACH in D5W 250 ML IV SCH (12:00)
[2019-04-01] MEDS ORDERED: HEPARIN 1,000 UNITS/ML 10ML VIAL (FOR RADIOLOGY& DIALYSIS ONLY)(J1644-10) XX ONE (12:00)
[2019-04-01] MEDS: ASPIRIN 81 MG CHEW TABLET GT SCH (12:41)
[2019-04-01] MEDS: guaiFENesin ER 600 MG TAB PO SCH ×2 (12:42→20:28)
[2019-04-01] MEDS: methylPREDNISolone INJ 40 MG/1 ML VIAL (J2920) IV SCH ×2 (12:42→20:27)
[2019-04-01] MEDS ORDERED: ISOVUE-370 76% 100ML VIAL (Q9967) As Ordered ONE (13:27)
--- NOTE | 2019-04-01 14:11 | REP ---
CT of the abdomen and pelvis with IV contrast, without bowel contrast: There are no comparisons. There is an infiltrate in the lower lobe of the left lung within the visualized lung laboy. The study is performed with the patient's right arm at side resulting in beam hardening image degradation. The hepatic parenchyma is unremarkable. There are numerous small calculi layering dependently in the gallbladder. The gallbladder is otherwise unremarkable. The pancreas and spleen are unremarkable. The adrenals and kidneys are unremarkable. The abdominal aorta is unremarkable. There is no periaortic adenopathy or mass. There is no bowel distension or obstruction. There is a nasogastric tube terminating in small bowel loops. There are surgical clips compatible with bariatric surgery. There is no bowel distension or obstruction. No bowel wall thickening. No inflammatory changes in the mesentery. There are focal areas of induration in the anterior abdominal wall subcutaneous fat, likely injection sites. There are no focal fluid collections to suggest abscess. Pelvis: There is no ascites or adenopathy. The bladder is unremarkable. The pelvic bowel loops are unremarkable. Impression: There is an infiltrate in the lower lobe of the right lung. No pleural effusion. There are no focal fluid collections to suggest abscess. There is no ascites. No bowel distension or obstruction. No ascites, adenopathy or mass. Nasogastric tube. Bariatric surgery. Electronically Signed by Jacob Cleary MD 04/01/2019 02:03 P
[2019-04-01] MEDS: SANTYL OINT 30GM TOP SCH ×2 (14:46→20:30)
--- NOTE | 2019-04-01 14:54 | IPN ---
DATE OF VISIT: 04/01/2019 Mr. Giraldo is seen this morning on his bedside in intensive care unit. His mother is present in the room and also seismic interpreter. The patient is more alert and able to interact today. He is complaining of severe pain in his back and Dr. Salamanca feels that the back wound is causing the pain and a surgical evaluation is pending for possible debridement. The patient remains on the ventilator at present. PHYSICAL EXAMINATION: Temperature 98 degrees Fahrenheit, heart rate 80 per minute and respiratory rate 24 per minute. Blood pressure 129/62 mmHg and oxygen saturation 98%. Endotracheal and nasogastric tubes are in place. Head is atraumatic. Neck veins are difficult to be assessed. Perma-Cath is currently being used for dialysis on right upper chest. Heart sounds are distant and regular and lungs with good bilateral air entry. Abdomen soft and nontender and bowel sounds are present. Extremities without any cyanosis or clubbing. Today's labs show WBC count 31.3, hemoglobin 9.5 and hematocrit 28.9. Platelets 376. Sodium 131, potassium 5.2, CO2 20, BUN 106 and creatinine 7.14. Glucose 528 and calcium 8.6. His phosphorus is 10.1. A random vancomycin level 13.5. PROBLEMS: 1. End-stage renal disease. The patient has been dialyzed 4 days in the row now. Yesterday we checked his pre and post BUN and he did have adequate dialysis. We are dialyzing him again today in view of electrolyte abnormality hypercatabolic status. The patient is tolerating dialysis very well. 2. Respiratory failure most likely not related to volume as his volume status is very well compensated and we are trying to remove only 1 liter of fluid as tolerated. 3. Abnormal electrolytes. The patient has pseudohyponatremia related to hyperglycemia and also mild hyperkalemia which is most likely also related to hyperglycemia. His elevated phosphorus is most likely related to necrotic tissue in his back wound and likely to correct with dialysis and wound debridement. 4. Anemia. His anemia is stable at present and does not need any urgent intervention. 5. Leukocytosis and infection in the back wound. Surgical evaluation is pending for his back wound for possible debridement. The patient remains on broad-spectrum antibiotics. Pharmacy is managing the dose for his and vancomycin and cefepime.
--- NOTE | 2019-04-01 15:23 | IPNPDOC ---
Date Seen The patient was seen on 04/01/19. Progress Note SUBJECTIVE: Patient seen and examined at bedside, no acute events overnight. Patient remains intubated. He is more communicative today and is able to sign some simple things to the middle school reading teacher. He continues to not require any sedation. His biggest problem at this point is pain in his sacral area and low back. CODE STATUS changed to DNR without tracheostomy placement or reintubation. OBJECTIVE: Vitals: See below GENERAL: Intubated, not on sedation, opens eyes spontaneously, responds to some questions through middle school reading teacher. HEENT: Normocephalic, atraumatic. EOMI, PERRL, no scleral icterus, nares patent, ET tube in place. CARDIOVASCULAR: Regular rate and rhythm, no lower extremity edema RESPIRATORY: Clear to auscultation bilaterally, no wheezes, crackles, or rhonchi appreciated on auscultation. ABDOMINAL: Soft, non-distended, does not wince in pain when abdomen is pressed on, positive bowel sounds EXTREMITIES: No cyanosis or edema. NEUROLOGICAL: Alert, follows some commands, responds to questions from middle school reading teacher by signing. Moves bilateral LE, moves LUE. CN2-12 intact. SKIN: Warm and dry, purple colored 3cm wound present on sacrum over bilateral intragluteal cleft LABORATORY, MICRO, IMAGES: See below ASSESSMENT/PLAN: Patient is a 48-year-old male who presented to [facility] emergency department on 03/19/2019 after an out of hospital cardiac arrest. Patient reportedly at dialysis Center. He reportedly had completed dialysis and was standing to take a blood pressure when he collapsed and had possible seizure-like activity. Per review of hospital records, patient unresponsive and in PEA when EMS presented. ROSC was retrieved after approximately 10 minutes out of hospital CPR. Patient was admitted to the ICU and underwent targeted temperature management. Patient was extubated on 03/27/2019, however, required reintubation for airway edema and started on Decadron. Patient successfully extubated 03/28/2019. During dialysis on 03/30/2019, patient was noted to be de-satting, trialed on bipap, became unresponsive and decision was made to re-intubate after consent obtained from . Bronchoscopy was performed at bedside without significant findings and only a small amount of mucous was noted in the right lower lung. #Acute hypoxic and hypercapnic respiratory failure - Likely secondary to laryngeal airway edema, pneumonia, and bronchospasm - Patient initially intubated on 03/19. Attempted extubation on 03/27 however patient failed due to airway edema and was reintubated 03/27. Extubated (03/28) and reintubated again on 03/30. Unclear etiology for current intubation, chest CT showing right lower lobe pneumonia and patient started on abx. Will continue to trend WBC count. - Solumedrol 40mg BID (day 3) - Chest PT, hypertonic saline nebulizers for secretions - Continue Ventilator management, will plan for SBT after dialysis - Propofol for sedation. If patient becomes hypotensive will change to precedex - Titrate O2 to keep SpO2 > 92% # Sacral wound - Starting patient on fentanyl drip as his pain has not been well controlled on the PRN dilaudid, norco, fentanyl, lidocaine patch, and tylenol. As patient is already intubated we already have a protected airway. - Surgery consulted, they will add collagenase ointment as the wound appears mostly superficial, he will see him again tomorrow morning and requested patient not be extubated prior to this so he could decide whether he wanted to take him to surgery. He does not feel the sacral wound is what is causing his elevated WBC count. Recommendations appreciated. #Leukocytosis - Likely secondary to right lower lobe pneumonia and possibly his sacral wound. - Vancomycin for MRSA(day 2) - Flagyl for anaerobic organisms(day 2) - Cefepime for gram positive and negative coverage (day 1) - 03/31/2019 blood cultures are negative - Sputum cultures have been positive for a few GBS organisms and yeast like organisms. - CT abd/pelvis with IV contrast ordered today and is negative for any occult abscesses, CT head has been negative, CT chest showed right lower lobe pneumonia. #Pneumonia - Will continue Vanc, cefepime (abx day 2). Repeat cultures today showing GBS positive, awaiting sensitivities. - Procalcitonin level elevated at 25 #Multiple bilateral CVAs - Patient has a history of a PFO, with AMMY performed on 12/25/[address] Cid, though patient is listed under different ). Dr. Smith requested a follow up be arranged with him outpatient for implantable loop recorder (ILR). If no afibx3 months of ILR monitoring, then Dr. Karmen Heller at [facility] will implant a PFO closure device. - Unclear etiology at this time. Most recent TTE not showing clear etiology of strokes - Aspirin 324mg daily and Lipitor - Will consider repeat AMMY given increased WBC, procalcitonin and embolic phenomenon noted on MRI - Neurology following #PEA Cardiac Arrest s/p ROSC - Unknown etiology, but likely hypoperfusion following dialysis s/p ROSC, TTM with meaningful neurologic recovery - Echo (03/24) with normal ejection fraction of 70%. - MRI consistent with multiple acute and subacute bilateral CVAs - Patient became unresponsive during HD #Laryngeal Airway Edema - Improving - Given prolonged intubation and edema and CVAs will order speech evaluation prior to PO intake #DM2 - Continue sliding scale every 6 hours, scheduled lispro increased from 5 to 10 units given increased glucose levels likely secondary to solumedrol addition. Will continue lantus at 16 Units QHS. #Hypertriglyceridemia - Continue lipitor #ESRD - Plan for dialysis Sunday - Nephrology following #Hypertension - Continue amlodipine 10 mg daily, carvedilol 25 mg twice a day, hydralazine 100 mg every 8 #Deaf - Crusher Feeder requested and currently at the bedside Diet: Continue tube feeds with Nepro 30cc/hr hold beniprotein DVT/GI ppx: Heparin SubQ, Protonix Vent: 8.0 ETT 24@lip, CPAP 5/5 40% L/T/D: NG, Right IJ Tunneled catheter ([employer]IV[employer]STRU[employer]) Drips: none CODE STATUS: MOLST form updated yesterday. patient is DNR. We will continue to perform daily SBT however if patient fails extubation we will not reintubate or place a tracheostomy per the patient's wishes expressed by his . VS, I&O, 24H, [facility] Vital Signs/I&O Vital Signs Date Time Temp Pulse Resp B/P (MAP) Pulse Ox O2 Delivery O2 Flow Rate FiO2 04/01/19 11:35 23 98 Ventilator 04/01/19 10:45 83 142/68 (92) 30 04/01/19 08:00 99.2 03/30/19 16:52 30.0 I&O- Last 24 Hours up to 6 AM 04/01/19 05:59 Intake Total 2320 ml Output Total 800 ml Balance 1520 ml Laboratory Data 24H LABS Laboratory Tests 2 03/31/19 17:50: Bedside Glucose (Misc Panel) 331H 03/31/19 23:37: Bedside Glucose (Misc Panel) 452H 04/01/19 05:14: Bedside Glucose (Misc Panel) 496H 04/01/19 05:17: Neutrophils (%) (Auto) , Neutrophils # (Auto) , Nucleated Red Blood Cells % (auto) 0.0, Neutrophils 89H, Lymphocytes (Manual) 8L, Monocytes (Manual) 3, Red Blood Cell Morphology NORMAL, Platelet Estimate NORMAL, Anion Gap 17H, Glomerular Filtration Rate 8.8L, Lactic Acid Level 1.1, Calcium Level 8.6, Phosphorus Level 10.1#H, Magnesium Level 2.9H, Albumin 2.1L, Random Vancomycin Level 13.5 04/01/19 11:04: Bedside Glucose (Misc Panel) 283H 04/01/19 12:04: Bedside Glucose (Misc Panel) 237H 04/01/19 13:17: Bedside Glucose (Misc Panel) 283H 04/01/19 14:08: Bedside Glucose (Misc Panel) 294H CBC/BMP Laboratory Tests 04/01/19 05:17 Microbiology Microbiology 03/31/19 Blood Culture - Preliminary, Resulted No growth after 24 hours . All specim... 03/31/19 Blood Culture - Preliminary, Resulted No growth after 24 hours . All specim... 03/30/19 Gram Stain - Final, Resulted 03/30/19 Sputum Culture - Preliminary, Resulted Strep Agalactiae Group B 03/26/19 Gram Stain - Final, Complete 03/26/19 Sputum Culture - Final, Complete Yeast Like Organism 03/23/19 Gram Stain - Final, Complete 03/23/19 Sputum Culture - Final, Complete GME ATTESTATION GME ATTESTATION My faculty preceptor for this patient encounter was physically present during the encounter and was fully available. All aspects of the patient interview, examination, medical decision making process, and medical care plan development were reviewed and approved by the faculty preceptor. The faculty preceptor is aware and concurs with the plan as stated in the body of this note and will attest to such by his/her cosignature. ATTENDING NOTE Patient seen and examined independently and with resident. Agree with history, physical, and assessment and plan above, except as otherwise noted below. Patient with improvement in mentation today. He spontaneously opens eyes and communicates with middle school reading teacher. Patient repeatedly reports pain in sacral region. Given inability to control pain, fentanyl drip initiated. Sacral wound with an area of necrosis concerning for infectious source. General surgery consult at this morning for probable debridement. Discussed with general surgery at length, will provide Santyl to area 2 times a day for chemical debridement. Wound care surgery to follow. CT of the abdomen shows no occult abscess. Patient with an increasing white count which is likely multifactorial including steroid use, sacral wound, right lower lobe pneumonia. Sputum cultures from bronchoscopy showing strep agalactae. Will continue to cover patient with broad-spectrum antibiotics with Vanc, cefepime, Flagyl. We'll consider de-escalating and discontinuing Flagyl tomorrow. Assessment 1. Acute hypoxic hypercapnic respiratory failure 2. Metabolic encephalopathy 3. Sepsis 4. S tage II sacral decubitus ulcer with necrosis 5. Right lower lobe pneumonia 6. End-stage renal disease 7. Hyperkalemia Code Status: DNR. , Britt, is surrogate-decision maker Dispo: Will continue to monitor in ICU while intubated. Critical Care Time: 40 minutes. Time spent titrating drips including fentanyl, weaning the ventilator to CPAP, discussing treatment options with consulting services, and frequently evaluation of the patient. Billin TAYLOR MERINO DO Apr 01, 2019 14:43 BINDU OROURKE DO Apr 01, 2019 19:27
[2019-04-01] MEDS: **VANCO AFTER HD** MISC XX SCH (17:56)
[2019-04-01] MEDS: CEFEPIME HCL 1 GM in D5W MINI-BAG PLUS 50 ML IV SCH (17:56)
[2019-04-01] MEDS ORDERED: VANCOMYCIN HCL 1,000 MG, VIAL MATE ADAPTER 1 EACH in D5W 250 ML IV ONE (18:00)
[2019-04-01] MEDS: ATORVASTATIN 20 MG TAB NG SCH (20:28)
[2019-04-01] MEDS: **NOTE PATIENT COMMENT** MISC XX SCH (20:31)
[2019-04-02] VITALS (20 sets, daily range): BP systolic 104–167; BP diastolic 51–72; O2SAT 96–100
[2019-04-02] MEDS: levETIRAcetam INJection 500 MG in D5W MINI-BAG PLUS 100 ML IV SCH ×2 (00:01→12:42)
[2019-04-02] MEDS: INSULIN IV RATE CHANGE DOCUMENTATION ML/HR XX SCH ×10 (00:04→20:14)
[2019-04-02] MEDS: SODIUM CHLORIDE HYPERTONIC 3% 15ML NEB SOL INH SCH ×5 (04:06→21:12)
[2019-04-02] MEDS: ALBUTEROL SULFATE 2.5 MG/0.5 ML INH NEB SOLN NEB SCH ×5 (04:06→21:12)
[2019-04-02] MEDS: metroNIDAZOLE 500 MG in IV 1 EA IV SCH ×2 (04:22→12:42)
[2019-04-02 04:45] LABS: BASO # 0.1 10^3/uL (0.0-0.2); BASO % 0.2 % (0.0-1.0); HEMATOCRIT 30.6 % (42.0-52.0); HEMOGLOBIN 10.1 g/dl (13.5-17.5); LYMPH # 1.4 10^3/uL (1.5-5.0); LYMPH % 4.7 % (24.0-44.0); MEAN CORPUSCULAR HEMOGLOBIN 30.8 pg (27.0-33.0); MEAN CORPUSCULAR VOLUME 93.3 fl (80.0-96.0); MONO # 0.8 10^3/uL (0.0-0.8); MONO % 2.8 % (0.0-5.0); NEUTROPHILS % 90.1 % (36.0-66.0); PLATELET COUNT, AUTOMATED 365 10^3/uL (150-450); RED BLOOD COUNT 3.28 10^6/uL (4.30-6.10); WHITE BLOOD COUNT 29.2 10^3/uL (4.0-10.0)
[2019-04-02 05:14] LABS: NEUTROPHILS # 26.3 10^3/uL (1.5-8.5)
[2019-04-02] MEDS: HEPARIN SOD (PORCINE) 5000 UNITS/ML VIAL (J1644 PER 1000UNITS) SC SCH ×3 (05:15→21:00)
[2019-04-02] MEDS: **hydrALAZINE** 50 MG TAB NG SCH ×3 (05:15→21:01)
[2019-04-02 05:21] LABS: ALBUMIN 2.1 GM/DL (3.2-5.2); CALCIUM LEVEL 8.9 MG/DL (8.5-10.1); CREATININE FOR GFR 5.97 MG/DL (0.70-1.30); GLOMERULAR FILTRATION RATE 10.8 (>60); PHOSPHORUS LEVEL 7.9 MG/DL (2.5-4.9); POTASSIUM SERUM 4.2 MEQ/L (3.5-5.1); VANCOMYCIN RANDOM 20.4 UG/ML
[2019-04-02] MEDS: INSULIN HUMAN REGULAR 100 UNITS in NS 99 ML IV SCH ×2 (05:59→17:50)
[2019-04-02] MEDS: fentaNYL CITRATE 1,000 MCG in NS 80 ML IV SCH (06:00)
--- NOTE | 2019-04-02 07:58 | CR.PDOC ---
General Surgery Consultation Date of Consultation 04/01/19 History and Physical CONSULT REPORT FOR: Karuna Salamanca DO (critical care) REASON FOR CONSULTATION: wound care, sacral wound HISTORY OF PRESENT ILLNESS: I was asked to evaluate Mr. Ford's sacral wound/skin necrosis for possible source of his leukocytosis. He is a 48 year old M patient currently intubated in the ICU. He is a 40-year-old male patient who has end-stage renal disease requiring dialysis secondary to diabetes and hypertension who suffered a cardiorespiratory arrest following dialysis on 03/19/2019. Suspected from CVA. He was intubated for about a week and subsequently extubated but today after became short of breath and subsequently reintubated again. He continues to be currently intubated at the time that I saw him. It is not sure whether he came in with a pressure ulcer though on speaking to his mother who is at the bedside with him he is ambulatory and walks independently. There was no skin documentation on admission but on March 26 which is about a week ago he had pictures of skin blistering on both sides of his gluteal cleft area. Currently there is necrosis and blackening of the overlying skin at the gluteal cleft and this is being covered with a foam gauze. Main concern at this point is whether this is a focus of active infection which would explain the severe leukocytosis of 30,000 was noted yesterday and 31,000 today. He does have a focus of consolidation on his lung on CT PAST MEDICAL HISTORY: 1. End-stage renal disease on dialysis 2. Hypertension 3. Diabetes 4. Obstructive sleep apnea 5. Congenital deafness 6. Known left CVA, speak ischemic infarct in January 2019 PAST SURGICAL HISTORY: INCLUDES: 1. Gastric bypass 2. Previous left AV fistula with steal and subsequent ligation of this 3. Patent foramen ovale ALLERGIES: Please see below. HOME MEDICATIONS: Please see below. REVIEW OF SYSTEMS: Patient is intubated though he looks awake. From what I could gather from his mom he is ambulating independently prior to the cardiorespiratory arrest. He has been bedridden, mostly intubated for the past week and a half. PHYSICAL EXAMINATION: VITALS SIGNS: Please see below. Patient is intubated but awake, able to convey pain/discomfort, breathing spontaneously. Over all looks comfortable Skin is warm and dry. Breath sounds are clear and equal Regular heart rate and rhythm Abdomen is flat, soft, benign in appearance Perianal skin shows blackened skin at the gluteal cleft (exactly at the cleft) on both sides with some sloughing of the skin laterally. There is no hard eschar or obvious subcutaneous thickening, fluctuance to suggest an abscess underneath the skin. Though the skin is black/necrotic, it remains soft. There is no separation of the skin to the subcutaneous tissue or crepitus at the area to suggest necrotizing infection. I used a curette and a 15 blade scalpel to further expose the tissue underneath the skin. The level of necrosis seems to be at the deep dermis but not through the subcutaneous tissue. There is some degree of moisture at the area. There is no angry skin erythema or cellulitis associated with the skin necrosis No significant extremity edema, warm. ANCILLARIES: . LABORATORY DATA: Please see below. IMAGING STUDIES: . IMPRESSION AND PLAN: Skin necrosis at the within the gluteal cleft. Not really typical for pressure necrosis as the necrotic skin is within the cleft itself and not at the pressure points of the sacrum or coccyx. This appears self limited. not sure of the etiology. I tried to lift the skin to see/appreciate the tissues underneatht he necrotic skin and this does not seem necrotic. No obvious abscess or signs of necrotizing soft tissue infection. At this point, does not need emergent debridement. I dont think this is the cause of the leukocytosis. Vital Signs Vital Signs Date Time Temp Pulse Resp B/P (MAP) Pulse Ox O2 Delivery O2 Flow Rate FiO2 04/02/19 00:00 97 Ventilator 40 04/02/19 00:00 18 04/02/19 00:00 99.0 79 126/66 (86) 03/30/19 16:52 30.0 I&Os I&O- Last 24 Hours up to 6 AM 04/02/19 06:00 Intake Total 1585 ml Output Total 550 ml Balance 1035 ml Laboratory Data Labs 24H Laboratory Tests 2 04/01/19 05:14: Bedside Glucose (Misc Panel) 496H 04/01/19 05:17: Neutrophils (%) (Auto) , Neutrophils # (Auto) , Nucleated Red Blood Cells % (auto) 0.0, Neutrophils 89H, Lymphocytes (Manual) 8L, Monocytes (Manual) 3, Red Blood Cell Morphology NORMAL, Platelet Estimate NORMAL, Anion Gap 17H, Glomerular Filtration Rate 8.8L, Lactic Acid Level 1.1, Calcium Level 8.6, Phosphorus Level 10.1#H, Magnesium Level 2.9H, Albumin 2.1L, Procalcitonin 40.33, Random Vancomycin Level 13.5 04/01/19 11:04: Bedside Glucose (Misc Panel) 283H 04/01/19 12:04: Bedside Glucose (Misc Panel) 237H 04/01/19 13:17: Bedside Glucose (Misc Panel) 283H 04/01/19 14:08: Bedside Glucose (Misc Panel) 294H 04/01/19 15:27: Bedside Glucose (Misc Panel) 289H 04/01/19 16:39: Bedside Glucose (Misc Panel) 261H 04/01/19 18:37: Bedside Glucose (Misc Panel) 225H 04/01/19 20:06: Bedside Glucose (Misc Panel) 181H 04/01/19 21:57: Bedside Glucose (Misc Panel) 118H 04/01/19 23:14: Bedside Glucose (Misc Panel) 80 04/02/19 00:03: Bedside Glucose (Misc Panel) 81 04/02/19 01:05: Bedside Glucose (Misc Panel) 125H CBC/BMP Laboratory Tests 04/01/19 05:17 Microbiology Microbiology 03/31/19 Blood Culture - Preliminary, Resulted No growth after 24 hours . All specim... 03/31/19 Blood Culture - Preliminary, Resulted No growth after 24 hours . All specim... 03/30/19 Gram Stain - Final, Resulted 03/30/19 Sputum Culture - Preliminary, Resulted Strep Agalactiae Group B 03/26/19 Gram Stain - Final, Complete 03/26/19 Sputum Culture - Final, Complete Yeast Like Organism 03/23/19 Gram Stain - Final, Complete 03/23/19 Sputum Culture - Final, Complete Home Medications Scheduled Amlodipine Besylate (Amlodipine Besylate) 5 Mg Tablet, 5 MG PO DAILY, (Reported) Aspirin (Aspirin EC) 81 Mg Tablet.dr, 81 MG PO DAILY, (Reported) Carvedilol (Carvedilol) 6.25 Mg Tablet, 6.25 MG PO BID, (Reported) Clonidine (Clonidine) 0.3 Mg Patch.tdwk, 0.3 MG PO QWEEK, (Reported) APPLIES TO LEFT DELTOID ON SUNDAY EVENINGS Folic Acid/Vit B Complex and C (Aisha-Samantha Tablet) 0.8 Mg Tablet, 1 TAB PO DAILY, (Reported) Glipizide (Glipizide) 10 Mg Tablet, 20 MG PO BID, (Reported) Hydralazine HCl (Hydralazine HCl) 50 Mg Tablet, 100 MG PO TID, (Reported) Icosapent Ethyl (Vascepa) 1 Gm Capsule, 2 GM PO BID, (Reported) Insulin Aspart (Novolog Flexpen) 100 Unit/1 Ml Insuln.pen, 1 DOSE SC AC, (Reported) PER SLIDING SCALE Insulin Detemir (Levemir Flextouch) 100 Unit/1 Ml Insuln.pen, 20 UNITS SC BID, (Reported) BREAKFAST/DINNER Pantoprazole Sodium (Pantoprazole Sodium) 40 Mg Tablet.dr, 40 MG PO DAILY, (Reported) Rosuvastatin Calcium (Rosuvastatin Calcium) 10 Mg Tablet, 10 MG PO QPM, (Reported) DINNERTIME Sertraline HCl (Sertraline HCl) 25 Mg Tablet, 25 MG PO DAILY, (Reported) Sucroferric Oxyhydroxide (Velphoro) 500 Mg Tab.chew, 1,500 MG PO WM, (Reported) Allergies Coded Allergies: Penicillins (Verified Allergy, Severe, ANAPHYLAXIS, 03/19/19) bacitracin (Verified Allergy, Mild, RASH, 03/19/19) neomycin (Verified Allergy, Mild, RASH, 03/19/19) polymyxin B (Verified Allergy, Mild, RASH, 03/19/19) JE DE LA GARZA MD Apr 02, 2019 01:42
[2019-04-02] MEDS: CHLORHEXIDINE GLUCONATE 0.12 % 15ML UDC (PERIDEX ORAL RINSE) MT SCH ×4 (08:34→20:04)
[2019-04-02] MEDS: LOSARTAN 50 MG TAB NG SCH ×2 (08:35→20:06)
[2019-04-02] MEDS: ASPIRIN 81 MG CHEW TABLET GT SCH (08:35)
[2019-04-02] MEDS: CARVedilol 12.5 MG TAB NG SCH ×2 (08:36→20:06)
[2019-04-02] MEDS: amLODIPine 10 MG TAB NG SCH (08:36)
[2019-04-02] MEDS: FAMOTIDINE 20 MG TAB PO SCH ×2 (08:36→20:05)
[2019-04-02] MEDS: methylPREDNISolone INJ 40 MG/1 ML VIAL (J2920) IV SCH (08:37)
[2019-04-02] MEDS: LIDOCAINE 5% (LIDODERM) PATCH TD SCH (08:39)
--- NOTE | 2019-04-02 10:37 | REP ---
Portable chest x-ray: Single view. History: Intubated patient. Right lower lobe infiltrate. Comparison study: March 30, 2019. Findings: There is improved aeration in the right base. Right hemidiaphragm remains somewhat elevated. No infiltrate is seen today. Heart is unchanged. Endotracheal tube remains in good position at the level of the proximal clavicles. An NG tube is seen coursing through the mediastinum. It appears to terminate at the level of the gastroesophageal junction although its tip is less than optimally visualized. There is an indwelling central venous catheter noted via the right internal jugular vein with its tip in the expected location of the superior vena cava. Impression: Improved aeration right base. No definite infiltrate. Electronically Signed by Vince Daugherty MD 04/02/2019 10:28 A
--- NOTE | 2019-04-02 11:02 | IPNPDOC ---
Date Seen The patient was seen on 04/02/19. Progress Note SUBJECTIVE: Patient seen and examined at bedside, no acute events overnight. Patient remains intubated. He is less communicative today and does not even respond regarding whether or not he is in pain even with fentanyl drip off. OBJECTIVE: Vitals: See below GENERAL: Intubated, not on sedation, opens eyes spontaneously, does not respond to interpreters questions HEENT: Normocephalic, atraumatic. EOMI, PERRL, no scleral icterus, nares patent, ET tube in place. CARDIOVASCULAR: Regular rate and rhythm, no lower extremity edema RESPIRATORY: Clear to auscultation bilaterally, no wheezes, crackles, or rhonchi appreciated on auscultation. ABDOMINAL: Soft, non-distended, does not wince in pain when abdomen is pressed on, positive bowel sounds EXTREMITIES: No cyanosis or edema. NEUROLOGICAL: Alert, not following commands or responding to questions. Moves bilateral LE, moves LUE. CN2-12 intact. SKIN: Warm and dry, purple colored 3cm wound present on sacrum over bilateral intragluteal cleft LABORATORY, MICRO, IMAGES: See below ASSESSMENT/PLAN: Patient is a 48-year-old male who presented to [facility] emergency department on 03/19/2019 after an out of hospital cardiac arrest. Patient reportedly at dialysis Center. He reportedly had completed dialysis and was standing to take a blood pressure when he collapsed and had possible seizure-like activity. Per review of hospital records, patient unresponsive and in PEA when EMS presented. ROSC was retrieved after approximately 10 minutes out of hospital CPR. Patient was admitted to the ICU and underwent targeted temperature management. Patient was extubated on 03/27/2019, however, required reintubation for airway edema and started on Decadron. Patient successfully extubated 03/28/2019. During dialysis on 03/30/2019, patient was noted to be de-satting, trialed on bipap, became unresponsive and decision was made to re-intubate after consent obtained from . Bronchoscopy was performed at bedside without significant findings and only a small amount of mucous was noted in the right lower lung. CT head, abd/pelvis have been negative for occult abscess, and CT chest found right lower lobe pneumonia for which he has been on appropriate abx coverage for at least 48 hours, Moreover his sacral wound was not thought by general surgery to be a li manju source of leukocytosis as it is fairly superficial. #Acute hypoxic and hypercapnic respiratory failure - Likely secondary to laryngeal airway edema, pneumonia, and bronchospasm - Patient initially intubated on 03/19. Attempted extubation on 03/27 however patient failed due to airway edema and was reintubated 03/27. Extubated (03/28) and reintubated again on 03/30. Unclear etiology for current intubation, chest CT showing right lower lobe pneumonia and patient started on abx. Will continue to trend WBC count. - Discontinue Solumedrol 40mg BID (day 3) - Chest PT, hypertonic saline nebulizers for secretions - Continue Ventilator management - Propofol for sedation. If patient becomes hypotensive will change to precedex - Titrate O2 to keep SpO2 > 92% # Sacral wound - Patient is not as responsive as days prior so we are holding fentanyl drip for the time being. Surgery does not feel he requires surgical debridement for his sacral wound. Continue collagenase ointment. norco, fentanyl, lidocaine patch, and tylenol. As patient is already intubated we already have a protected airway. #Leukocytosis - Unclear etiology as he has been on appropriate antibiotic therapy now. Possibly secondary to pneumonia and sacral wound, however vegetations still remain on our differential as they tie his leukocytosis and strokes together. Will reach out to Dr. Smith again today for his opinion on this matter. - Vancomycin for MRSA(day 3) - Flagyl for anaerobic organisms (day 3) - Cefepime for gram positive and negative coverage (day 2) - 03/31/2019 blood cultures are negative after 24 hours thus far. - Sputum cultures have been positive for a few GBS organisms and yeast like organisms. - CT abd/pelvis with IV contrast ordered today and is negative for any occult abscesses, CT head has been negative, CT chest showed right lower lobe pneumonia. CXR ordered today not showing any definitive pneumonia. #Pneumonia - Will continue Vanc, cefepime (abx day 2/3). Repeat cultures today showing GBS positive, sensitivities covering infection. - Procalcitonin level elevated at 25, repeat from yesterday up to 40, order repeat procalcitonin for today. #Multiple bilateral CVAs - Patient has a history of a PFO, with AMMY performed on 12/25/[address] Cid, though patient is listed under different ). Dr. Smith requested a follow up be arranged with him outpatient for implantable loop recorder (ILR). If no afibx3 months of ILR monitoring, then Dr. Karmen Heller at [facility] will implant a PFO closure device. - Unclear etiology at this time. Most recent TTE not showing clear etiology of strokes - Aspirin 324mg daily and Lipitor - Reaching out to Dr. Smith regarding repeat AMMY given increased WBC, procalcitonin and embolic phenomenon noted on MRI - Neurology following #PEA Cardiac Arrest s/p ROSC - Unknown etiology, but likely hypoperfusion following dialysis s/p ROSC, TTM with meaningful neurologic recovery - Echo (03/24) with normal ejection fraction of 70%. - MRI consistent with multiple acute and subacute bilateral CVAs - Patient became unresponsive during HD #Laryngeal Airway Edema - Improving - Given prolonged intubation and edema and CVAs will order speech evaluation prior to PO intake #DM2 - Continue sliding scale every 6 hours, scheduled lispro increased from 5 to 10 units given increased glucose levels likely secondary to solumedrol addition. Will continue lantus at 16 Units QHS. #Hypertriglyceridemia - Continue lipitor #ESRD - Plan for dialysis Sunday - Nephrology following #Hypertension - Continue amlodipine 10 mg daily, carvedilol 25 mg twice a day, hydralazine 100 mg every 8 #Deaf - Director Of Maternity Services requested and currently at the bedside Diet: Continue tube feeds with Nepro 30cc/hr hold beniprotein DVT/GI ppx: Heparin SubQ, Protonix Vent: 8.0 ETT 24@lip, CPAP 5/5 40% L/T/D: NG, Right IJ Tunneled catheter (SOLUTION ARCHITECT) Drips: none CODE STATUS: DNR, patient's , britt is HCP. VS, I&O, 24H, Fishbone Vital Signs/I&O Vital Signs Date Time Temp Pulse Resp B/P (MAP) Pulse Ox O2 Delivery O2 Flow Rate FiO2 04/02/19 08:36 82 04/02/19 08:35 167/72 04/02/19 07:51 20 98 30 04/02/19 06:00 Ventilator 04/02/19 04:00 98.9 03/30/19 16:52 30.0 I&O- Last 24 Hours up to 6 AM 04/02/19 06:00 Intake Total 2053 ml Output Total 550 ml Balance 1503 ml Laboratory Data 24H LABS Laboratory Tests 2 04/01/19 11:04: Bedside Glucose (Misc Panel) 283H 04/01/19 12:04: Bedside Glucose (Misc Panel) 237H 04/01/19 13:17: Bedside Glucose (Misc Panel) 283H 04/01/19 14:08: Bedside Glucose (Misc Panel) 294H 04/01/19 15:27: Bedside Glucose (Misc Panel) 289H 04/01/19 16:39: Bedside Glucose (Misc Panel) 261H 04/01/19 18:37: Bedside Glucose (Misc Panel) 225H 04/01/19 20:06: Bedside Glucose (Misc Panel) 181H 04/01/19 21:57: Bedside Glucose (Misc Panel) 118H 04/01/19 23:14: Bedside Glucose (Misc Panel) 80 04/02/19 00:03: Bedside Glucose (Misc Panel) 81 04/02/19 01:05: Bedside Glucose (Misc Panel) 125H 04/02/19 03:18: Bedside Glucose (Misc Panel) 174H 04/02/19 04:28: 04/02/19 04:30: Immature Granulocyte % (Auto) 2.2, Neutrophils (%) (Auto) 90.1H, Lymphocytes (%) (Auto) 4.7L, Monocytes (%) (Auto) 2.8, Eosinophils (%) (Auto) 0.0, Basophils (%) (Auto) 0.2, Neutrophils # (Auto) 26.3H, Lymphocytes # (Auto) 1.4L, Monocytes # (Auto) 0.8, Eosinophils # (Auto) 0.0, Basophils # (Auto) 0.1, Nucleated Red Blood Cells % (auto) 0.0, Anion Gap 11, Glomerular Filtration Rate 10.8L, Calcium Level 8.9, Phosphorus Level 7.9#H, Albumin 2.1L, Random Vancomycin Level 20.4 04/02/19 05:17: Bedside Glucose (Misc Panel) 213H 04/02/19 06:38: Bedside Glucose (Misc Panel) 193H 04/02/19 08:12: Bedside Glucose (Misc Panel) 194H 2/26/20 10:01: Bedside Glucose (Misc Panel) 179H CBC/BMP Laboratory Tests 04/02/19 04:30 Microbiology Microbiology 03/31/19 Blood Culture - Preliminary, Resulted No growth after 24 hours . All specim... 03/31/19 Blood Culture - Preliminary, Resulted No growth after 24 hours . All specim... 03/30/19 Gram Stain - Final, Complete 03/30/19 Sputum Culture - Final, Complete Strep Agalactiae Group B 03/26/19 Gram Stain - Final, Complete 03/26/19 Sputum Culture - Final, Complete Yeast Like Organism 03/23/19 Gram Stain - Final, Complete 03/23/19 Sputum Culture - Final, Complete GME ATTESTATION GME ATTESTATION My faculty preceptor for this patient encounter was physically present during the encounter and was fully available. All aspects of the patient interview, examination, medical decision making process, and medical care plan development were reviewed and approved by the faculty preceptor. The faculty preceptor is aware and concurs with the plan as stated in the body of this note and will attest to such by his/her cosignature. ATTENDING NOTE Patient seen and examined independently and with resident. Agree with history, physical, and assessment and plan above, except as otherwise noted below. No acute overnight events. Patient lethargic this morning. He does open his eyes and track, however, he is not answering yes or no questions with timber incisor operator. Patient closes his eyes quickly after physical stimulation. Pupils are noted to be pinpoint. Fentanyl drip was held this morning has increased lethargy thought to be related to narcotics. Patient continues to oxygenate well and breathing comfortably on pressure support. There is minimal sputum production or secretions noted with in-line suctioning. Patient's white count remains elevated however there is a slight trend to 29. It is noted that her calcitonin obtunded yesterday. Worsening clinical picture and mentation thought to be related to sepsis. Blood cultures pending. Sputum cultures showing group B strep. Currently on Vanc, cefepime, Flagyl. We'll discontinue Flagyl today. Continue other antibiotics. No surgical debridement needed for stage II sacral decubitus ulcer with necrosis at this time, but continue Santyl for chemical debridement. Assessment 1. Acute hypoxic hypercapnic respiratory failure 2. Metabolic encephalopathy 3. Sepsis 4. Stage II sacral decubitus ulcer with necrosis 5. Right lower lobe pneumonia 6. End-stage renal disease 7. Hyperkalemia Code Status: DNR. , Britt, is surrogate-decision maker Dispo: Will continue to monitor in ICU while intubated. Patient currently on pressure support however remains lethargic. We'll plan extubation when patient's mentation improves. Discussed with nephrology and surgery. Billin TAYLOR MERINO DO Apr 02, 2019 10:45 BINDU OROURKE DO Apr 02, 2019 13:33
[2019-04-02] MEDS: SANTYL OINT 30GM TOP SCH ×2 (12:41→20:06)
[2019-04-02] MEDS: guaiFENesin SYRUP 200 MG/10 ML UDC PO SCH ×3 (12:56→20:04)
--- NOTE | 2019-04-02 15:09 | IPN ---
DATE: 04/02/2019 Mr. Maciel is seen this morning on his bedside. He remains on the ventilator but he is awake and eyes are open. He does not interact much. We tried to talk to him through the sign language interpreter, however, he just had a constant stare and no answer to any questions. PHYSICAL EXAMINATION: Temperature 98.5 degrees Fahrenheit, heart rate 72 per minute and respiratory rate 18 per minute. Blood pressure 114/70 mmHg and oxygen saturation 98% on 30% oxygen. Endotracheal tube and nasogastric tubes are in place. Head is atraumatic. Neck veins are difficult to be assessed. Heart sounds are regular and lungs have good bilateral air entry. Abdomen is soft and nontender and bowel sounds are normal. Extremities are without any cyanosis or clubbing. Neurologically, he is awake but not interacting. Today's labs show WBC count 29.2, hemoglobin 10.1 and hematocrit 30.6. Sodium 136, potassium 4.2, CO2 25, BUN 77 and creatinine 5.97. Calcium is 8.9 and phosphorus down to 7.9. PROBLEMS: 1. End-stage renal disease. The patient was dialyzed yesterday and no emergent need for dialysis today. We have dialyzed him at least for the last 4 days can consecutively, and we will plan on dialyzing him again tomorrow. His volume status is very well compensated. 2. Hyponatremia and hyperkalemia. Yesterday he had mild hyponatremia and hyperkalemia, most likely related to hyperglycemia and that has already improved and resolved. No further intervention is needed. 3. Leukocytosis. Most likely this is related to infection, but source is not definitively identified. He does have an infiltrate and remains on antibiotics. Pressure ulcer on his sacral area is not felt to be infected. He had a CT scan of abdomen and pelvis yesterday, which did not show any evidence of any abscess or intra-abdominal infection. 4. Hypertension. Blood pressure is well-controlled on current medications and no changes are being made today.
[2019-04-02] MEDS: **VANCO AFTER HD** MISC XX SCH (15:49)
[2019-04-02] MEDS: CEFEPIME HCL 1 GM in D5W MINI-BAG PLUS 50 ML IV SCH (17:03)
[2019-04-02] MEDS: ATORVASTATIN 20 MG TAB NG SCH (20:04)
[2019-04-02] MEDS: **NOTE PATIENT COMMENT** MISC XX SCH (20:06)
[2019-04-02] MEDS: HYDROMORPHONE HCL 0.5 MG/ 0.5 ML SYRINGE (J1170 PER 1) IV PRN (21:00)
[2019-04-03] VITALS (22 sets, daily range): BP systolic 89–154; BP diastolic 51–71; O2SAT 97–100
[2019-04-03] MEDS: ALBUTEROL SULFATE 2.5 MG/0.5 ML INH NEB SOLN NEB SCH ×7 (00:29→23:28)
[2019-04-03] MEDS: SODIUM CHLORIDE HYPERTONIC 3% 15ML NEB SOL INH SCH ×7 (00:29→23:28)
[2019-04-03] MEDS: INSULIN IV RATE CHANGE DOCUMENTATION ML/HR XX SCH ×5 (01:10→17:05)
[2019-04-03] MEDS: HYDROMORPHONE HCL 0.5 MG/ 0.5 ML SYRINGE (J1170 PER 1) IV PRN (04:55)
[2019-04-03] MEDS: HEPARIN SOD (PORCINE) 5000 UNITS/ML VIAL (J1644 PER 1000UNITS) SC SCH ×3 (05:02→21:11)
[2019-04-03] MEDS: **hydrALAZINE** 50 MG TAB NG SCH ×3 (05:03→21:10)
[2019-04-03 05:07] LABS: BASO % 0.2 % (0.0-1.0); HEMATOCRIT 30.2 % (42.0-52.0); HEMOGLOBIN 9.9 g/dl (13.5-17.5); LYMPH # 2.9 10^3/uL (1.5-5.0); MEAN CORPUSCULAR HEMOGLOBIN 31.1 pg (27.0-33.0); MEAN CORPUSCULAR HGB CONC 32.8 g/dl (32.0-36.5); MONO # 1.6 10^3/uL (0.0-0.8); MONO % 6.5 % (0.0-5.0); NEUTROPHILS # 19.3 10^3/uL (1.5-8.5); NEUTROPHILS % 79.3 % (36.0-66.0); PLATELET COUNT, AUTOMATED 340 10^3/uL (150-450); RED BLOOD COUNT 3.18 10^6/uL (4.30-6.10); WHITE BLOOD COUNT 24.4 10^3/uL (4.0-10.0)
[2019-04-03 05:38] LABS: ALBUMIN 2.2 GM/DL (3.2-5.2); CALCIUM LEVEL 8.2 MG/DL (8.5-10.1); CREATININE FOR GFR 8.46 MG/DL (0.70-1.30); GLOMERULAR FILTRATION RATE 7.2 (>60); POTASSIUM SERUM 4.2 MEQ/L (3.5-5.1); VANCOMYCIN RANDOM 14.8 UG/ML
[2019-04-03] MEDS: amLODIPine 10 MG TAB NG SCH (07:38)
[2019-04-03] MEDS: LOSARTAN 50 MG TAB NG SCH ×2 (07:39→20:24)
[2019-04-03] MEDS: ASPIRIN 81 MG CHEW TABLET GT SCH (07:39)
[2019-04-03] MEDS: CARVedilol 12.5 MG TAB NG SCH ×2 (07:39→20:23)
[2019-04-03] MEDS: FAMOTIDINE 20 MG TAB PO SCH ×2 (07:39→20:22)
[2019-04-03] MEDS: CHLORHEXIDINE GLUCONATE 0.12 % 15ML UDC (PERIDEX ORAL RINSE) MT SCH ×4 (07:40→20:22)
[2019-04-03] MEDS: guaiFENesin SYRUP 200 MG/10 ML UDC PO SCH ×3 (07:40→20:22)
[2019-04-03] MEDS: LIDOCAINE 5% (LIDODERM) PATCH TD SCH (07:40)
[2019-04-03] MEDS: SANTYL OINT 30GM TOP SCH ×2 (09:00→20:24)
[2019-04-03] MEDS: NORCO, ANEXSIA 5/325MG TABLET (HYDROcodone/ACETAMINOPHEN) PO PRN ×2 (10:45→23:40)
[2019-04-03] MEDS: INSULIN HUMAN REGULAR 100 UNITS in NS 99 ML IV SCH (11:04)
--- NOTE | 2019-04-03 12:55 | IPN ---
DATE: 03/24/2019 Mr. Maciel was seen this morning on his bedside. He is currently being dialyzed and wardrobe manager is present on the bedside. The patient remains intubated and he is awake and better interactive today. He is quite upset about his condition, particularly about the tube in his throat and nose. PHYSICAL EXAMINATION: Temperature 98 degrees Fahrenheit, heart rate 70 per minute and respiratory rate 24 per minute. Blood pressure 136/65 mmHg and oxygen saturation 98% on 30% oxygen. Endotracheal and nasogastric tubes are in place. Head is atraumatic. Neck: Supple and jugular venous distention (JVD) difficult to be assessed. Earlier his blood pressure was down to 98/50 mmHg during dialysis and we had to cut back the goal. His heart sounds are regular and lungs have good bilateral air entry. Abdomen is soft and nontender and bowel sounds are normal. Extremities are without any cyanosis or clubbing. Neurologically, he is much more alert and interactive now. Today's labs show WBC count down to 24.4, hemoglobin 9.9 and hematocrit 30.2. Platelets 340. Sodium is 138, potassium 4.2, CO2 20, BUN 113 and creatinine 8.46. Calcium level 8.2 and phosphorus 10.0. PROBLEMS: 1. End-stage renal disease. The patient is being dialyzed today and he is tolerating his dialysis treatment reasonably well. His blood pressure was low but ultrafiltration goal has been cut down. We are trying to remove about 1.5 liters fluid now. 2. Hypotension. The patient did have low blood pressure during dialysis. He received multiple antihypertensive meds this morning and I am going to put hold parameters for holding blood pressure for systolic blood pressure less than 130. 3. Anemia. His anemia is stable and does not need any urgent intervention. He has been receiving Aranesp. 4. Respiratory failure. The patient is being treated with antibiotics for possible pneumonia. No other obvious reason identified. His volume status remains well-compensated. It remains to be seen if he can be successfully extubated today.
--- NOTE | 2019-04-03 14:33 | REP ---
Portable chest x-ray: Single view. History: Right lower lobe pneumonia. Comparison chest x-ray: April 02, 2019. Findings: A tunneled central venous catheter is noted in place on the right. Endotracheal tube is seen in place at the level of proximal clavicles. An NG tube is noted although its distal tip is not visible on the current radiograph. Patient is rotated to the right. There is plate-like atelectasis in the right perihilar region. Lung laboy are otherwise clear. Heart is not enlarged. Electronically Signed by Vince Daugherty MD 04/03/2019 02:25 P
[2019-04-03] MEDS ORDERED: VANCOMYCIN HCL 1,000 MG, VIAL MATE ADAPTER 1 EACH in D5W 250 ML IV ONE (16:00)
[2019-04-03] MEDS: **VANCO AFTER HD** MISC XX SCH (16:00)
[2019-04-03] MEDS: CEFEPIME HCL 1 GM in D5W MINI-BAG PLUS 50 ML IV SCH (17:36)
--- NOTE | 2019-04-03 20:16 | IPNPDOC ---
Date Seen The patient was seen on 04/03/19. Progress Note SUBJECTIVE: Patient seen and examined. No acute events overnight. Patient remains intubated, off sedation. He opens eyes and tracks but falls asleep often during the day. He intermittently follows commands and intermittently answers yes no questions with shotgun shell loading machine operator. During time of my examination patient stated he had no pain. OBJECTIVE: Vitals: See below GENERAL: Intubated, not on sedation, opens eyes spontaneously, intermittently responds to interpreters questions HEENT: Normocephalic, atraumatic. EOMI, PERRL, no scleral icterus, nares patent, ET tube in place. CARDIOVASCULAR: Regular rate and rhythm, no lower extremity edema RESPIRATORY: Clear to auscultation bilaterally, no wheezes. Patient with thick mucous noted with lavage and suction when direct sternal in-line suction her catheter tip directed towards the right ABDOMINAL: Soft, non-distended, positive bowel sounds EXTREMITIES: Spontaneously moves all for extremities, however more limited motion noted of right upper extremity NEUROLOGICAL: Awake and alert, intermittently follows commands SKIN: Warm and dry, unstageable sacral wound noted LABORATORY, MICRO, IMAGES: See below ASSESSMENT/PLAN: Patient is a 48-year-old male who presented to [facility] emergency department on 03/19/2019 after an out of hospital cardiac arrest. Patient reportedly at dialysis Center. He reportedly had completed dialysis and was standing to take a blood pressure when he collapsed and had possible seizure-like activity. Per review of hospital records, patient unresponsive and in PEA when EMS presented. ROSC was achieved after approximately 10 minutes out of hospital CPR. Patient was admitted to the ICU and underwent targeted temperature management. Patient was extubated on 03/27/2019, however, required reintubation for airway edema and started on Decadron. Patient successfully extubated 03/28/2019. During dialysis on 03/30/2019, patient was noted to be de-satting, trialed on bipap, became unresponsive and decision was made to re-intubate after consent obtained from . Bronchoscopy was performed at bedside without significant findings and only a small amount of mucous was noted in the right lower lung. Patient remains intubated #PEA Cardiac Arrest s/p ROSC - Unknown etiology, but likely hypoperfusion following dialysis s/p ROSC, TTM with meaningful neurologic recovery - Echo (03/24) with normal ejection fraction of 70%. - MRI consistent with multiple acute and subacute bilateral CVAs #Acute hypoxic and hypercapnic respiratory failure - Likely secondary to laryngeal airway edema, pneumonia, and bronchospasm - Patient initially intubated on 03/19. Attempted extubation on 03/27 however patient failed due to airway edema and was reintubated 03/27. Extubated (03/28) and reintubated again on 03/30. Unclear etiology for current intubation, chest CT showing right lower lobe pneumonia and patient started on abx. Will continue to trend WBC count. - Chest x-ray independently visualized no acute abnormalities noted,no noticeable infiltrate appreciated on portable x-ray - Discontinue Solumedrol 40mg BID 04/02/2019 after 3 days - Chest PT, hypertonic saline nebulizers for secretions - Remains intubated on CPAP, when necessary Dilaudid for pain - Anticipate extubation in the morning, plan discussed with and mother - Titrate O2 to keep SpO2 > 92% # Unstageable Sacral wound - Wound care and surgery following, will need debridement for area of necrosis - Continue antibiotics #Strep Pneumonia - Slight downtrend of white count and pro-calcitonin - Continue Vanc, cefepime (03/31- present). Previously on Levaquin - Anticipate expiration tomorrow #Multiple bilateral CVAs - Patient has a history of a PFO, with AMMY performed on 12/25/[address] Cid, though patient is listed under different ). Dr. Smith requested a follow up be arranged with him outpatient for implantable loop rec order (ILR). If no afibx3 months of ILR monitoring, then Dr. Karmen Heller at [facility] will implant a PFO closure device. - Unclear etiology at this time. Most recent TTE not showing clear etiology of strokes - Aspirin 324mg daily and Lipitor - Neurology following #DM2 -Continue insulin drip #Hypertriglyceridemia - Continue lipitor, monitor on propofol #ESRD - Plan for dialysis Sunday, , Sunday - Nephrology following #Hypertension - Continue amlodipine 10 mg daily, carvedilol 25 mg twice a day, hydralazine 100 mg every 8 #Deaf - Junior Staff Accountant requested and currently at the bedside Resolved Hospital Problems: Laryngeal Airway Edema Diet: Continue tube feeds with Nepro 30cc/hr hold beniprotein, await new formulation per dietary recommendations DVT/GI ppx: Heparin SubQ, Protonix Vent: 8.0 ETT 24@lip, CPAP 5/5 40% L/T/D: NG, Right IJ Tunneled catheter (DECK ENGINE OPERATOR) Drips: Insulin CODE STATUS: DNR DNI. Signed MOLST form in the chart. , ARTIS De La Torre ([id number]) Disposition: Continue to monitor in the ICU while intubated. Continue broad- spectrum antibiotics. Anticipate expiration in the morning. Discussed with nephrology, general surgery, and wound care Billin VS, [facility]O, [facility]&O Vital Signs Date Time Temp Pulse Resp B/P (MAP) Pulse Ox O2 Delivery O2 Flow Rate FiO2 04/03/19 18:00 18 98 30 04/03/19 18:00 72 125/59 (81) Ventilator 04/03/19 16:00 98.6 03/30/19 16:52 30.0 I&O- Last 24 Hours up to 6 AM 04/03/19 06:00 Intake Total 1357 ml Output Total 0 ml Balance 1357 ml Laboratory Data 24H LABS Laboratory Tests 2 04/02/19 20:12: Bedside Glucose (Misc Panel) 78 04/02/19 21:04: Bedside Glucose (Misc Panel) 72 04/02/19 21:35: Bedside Glucose (Misc Panel) 89 04/03/19 01:08: Bedside Glucose (Misc Panel) 207H 04/03/19 03:25: Bedside Glucose (Misc Panel) 202H 04/03/19 04:53: Immature Granulocyte % (Auto) 2.0, Neutrophils (%) (Auto) 79.3H, Lymphocytes (%) (Auto) 12.0L, Monocytes (%) (Auto) 6.5H, Eosinophils (%) (Auto) 0.0, Basophils (%) (Auto) 0.2, Neutrophils # (Auto) 19.3H, Lymphocytes # (Auto) 2.9, Monocytes # (Auto) 1.6H, Eosinophils # (Auto) 0.0, Basophils # (Auto) 0.0, Nucleated Red Blood Cells % (auto) 0.0, Anion Gap 18H, Glomerular Filtration Rate 7.2L, Calcium Level 8.2L, Phosphorus Level 10.0#H, Albumin 2.2L, Procalcitonin 23.12, Random Vancomycin Level 14.8 04/03/19 05:05: Bedside Glucose (Misc Panel) 176H 04/03/19 06:48: Bedside Glucose (Misc Panel) 130H 04/03/19 09:40: Bedside Glucose (Misc Panel) 91 04/03/19 12:11: Bedside Glucose (Misc Panel) 77 04/03/19 13:24: Bedside Glucose (Misc Panel) 109H 04/03/19 14:47: Bedside Glucose (Misc Panel) 115H 04/03/19 16:59: Bedside Glucose (Misc Panel) 168H 04/03/19 18:57: Bedside Glucose (Misc Panel) 153H CBC/BMP Laboratory Tests 04/03/19 04:53 Microbiology Microbiology 03/31/19 Blood Culture - Preliminary, Resulted No Growth after 72 hours. All specime... 03/31/19 Blood Culture - Preliminary, Resulted No Growth after 72 hours. All specime... 03/30/19 Gram Stain - Final, Complete 03/30/19 Sputum Culture - Final, Complete Strep Agalactiae Group B 03/26/19 Gram Stain - Final, Complete 03/26/19 Sputum Culture - Final, Complete Yeast Like Organism BINDU OROURKE DO Apr 03, 2019 20:16
[2019-04-03] MEDS: ATORVASTATIN 20 MG TAB NG SCH (20:22)
[2019-04-03] MEDS: **NOTE PATIENT COMMENT** MISC XX SCH (20:25)
[2019-04-04] VITALS (19 sets, daily range): BP systolic 94–133; BP diastolic 52–68; O2SAT 100
[2019-04-04] MEDS: INSULIN HUMAN REGULAR 100 UNITS in NS 99 ML IV SCH (02:48)
[2019-04-04] MEDS: SODIUM CHLORIDE HYPERTONIC 3% 15ML NEB SOL INH SCH ×6 (04:35→20:34)
[2019-04-04] MEDS: ALBUTEROL SULFATE 2.5 MG/0.5 ML INH NEB SOLN NEB SCH ×6 (04:35→20:34)
[2019-04-04 04:58] LABS: BASO # 0.1 10^3/uL (0.0-0.2); BASO % 0.2 % (0.0-1.0); EOS # 0.2 10^3/uL (0.0-0.5); HEMATOCRIT 31.8 % (42.0-52.0); HEMOGLOBIN 10.5 g/dl (13.5-17.5); LYMPH # 2.5 10^3/uL (1.5-5.0); LYMPH % 11.6 % (24.0-44.0); MEAN CORPUSCULAR HEMOGLOBIN 31.1 pg (27.0-33.0); MEAN CORPUSCULAR VOLUME 94.1 fl (80.0-96.0); MONO # 1.8 10^3/uL (0.0-0.8); MONO % 8.3 % (0.0-5.0); NEUTROPHILS # 16.4 10^3/uL (1.5-8.5); NEUTROPHILS % 76.7 % (36.0-66.0); PLATELET COUNT, AUTOMATED 287 10^3/uL (150-450); RED BLOOD COUNT 3.38 10^6/uL (4.30-6.10); WHITE BLOOD COUNT 21.4 10^3/uL (4.0-10.0)
[2019-04-04] MEDS: **hydrALAZINE** 50 MG TAB NG SCH ×3 (05:05→21:06)
[2019-04-04] MEDS: HEPARIN SOD (PORCINE) 5000 UNITS/ML VIAL (J1644 PER 1000UNITS) SC SCH ×3 (05:09→21:07)
[2019-04-04 05:23] LABS: ALBUMIN 2.2 GM/DL (3.2-5.2); CALCIUM LEVEL 8.2 MG/DL (8.5-10.1); CREATININE FOR GFR 6.22 MG/DL (0.70-1.30); GLOMERULAR FILTRATION RATE 10.3 (>60); PHOSPHORUS LEVEL 8.2 MG/DL (2.5-4.9); POTASSIUM SERUM 4.6 MEQ/L (3.5-5.1); VANCOMYCIN RANDOM 20.7 UG/ML
[2019-04-04] MEDS: LOSARTAN 50 MG TAB NG SCH ×2 (09:00→20:18)
[2019-04-04] MEDS: amLODIPine 10 MG TAB NG SCH (09:00)
[2019-04-04] MEDS: CARVedilol 12.5 MG TAB NG SCH ×2 (09:00→20:18)
[2019-04-04] MEDS: guaiFENesin SYRUP 200 MG/10 ML UDC PO SCH ×3 (09:19→20:17)
[2019-04-04] MEDS: CHLORHEXIDINE GLUCONATE 0.12 % 15ML UDC (PERIDEX ORAL RINSE) MT SCH ×4 (09:19→20:18)
[2019-04-04] MEDS: SANTYL OINT 30GM TOP SCH ×2 (09:19→20:23)
[2019-04-04] MEDS: FAMOTIDINE 20 MG TAB PO SCH ×2 (09:19→20:18)
[2019-04-04] MEDS: ASPIRIN 81 MG CHEW TABLET GT SCH (09:20)
[2019-04-04] MEDS: LIDOCAINE 5% (LIDODERM) PATCH TD SCH (09:21)
--- NOTE | 2019-04-04 10:14 | CR ---
DATE OF CONSULTATION: 04/03/2019 REASON FOR CONSULTATION: Wound care for unstageable sacral pressure injury. HISTORY OF PRESENT ILLNESS: 48-year-old male with multiple comorbidities, including diabetes on dialysis with assumed peripheral vascular disease, had a cardiac event with cardiac arrest after a dialysis treatment was resuscitated, brought to [facility] where he was intubated and placed in the intensive care unit (ICU). The patient then over the next several days stabilized and was extubated but then required reintubation. The patient has a pneumonia with elevated white count and has an unstageable pressure injury involving the sacrum. At present, he is intubated and receiving tube feding via an NG tube. He has been seen by a general surgeon, and I have been asked to comment on treatment modalities for his sacral wound.. On inspection, there is an unstageable pressure injury involving the sacral and coccyx area.. There is no fluctuation noted and no drainage seen. The periwound shows areas of denuded, partial thickness wounds, which extends bilaterally. Treatment for unstageable pressure injury is to debride all of the devitalized tissue, removing it completely. This is a nidus for infection, as the tissue is necrotic and will not regenerate. This can be done at bedside with local anesthesia by injecting underneath the eschar, which will raise it, provide anesthesia and then using a #15 scalpel blade and or scissors and forceps, removing all of the eschar. The wound can then be staged and most probably is consistent with a stage III or IV pressure injury. Treatment for this will be Alginate applied directly Over the wound and covered with a foam dressing to be changed on a daily basis. Santyl, which is an enzymatic debrider can also be used and is not contraindicated as long as the Alginate does not contain silver. The partial-thickness periwound wounds should be covered with foam dressings only. Alginate should not be used on the periwound. Santyl will not penetrate an eschar and does not work on a dry ischemic eschar, therefore it would not be useful in this situation without first debridement the wound. Heel float boots should be placed prophylactically to avoid any potential pressure injuries involving the heels. The patient's nutritional status should be rechecked by a industrial illuminating engineer to ensure that he is receiving the appropriate volume of tube feeding as this can vary depending on his clinical status. Periodic evaluation of the patient's NG tube placement should be performed every shift to ensure that no mechanical pressure injury at the nares occurs. An alternating pressure relief mattress is also indicated along with a change in position turning schedule of q.2 h or as necessary has to be implemented. Dressing changes can be done on a once a day basis and depending upon how the wound improves topical dressing modifications can be made. Please feel free to reconsult as needed regarding any modifications in his wound care. ANASTASIA
[2019-04-04] MEDS: HumaLOG INSULIN (NovoLOG) PER UNIT SC SCH ×3 (12:00→23:30)
--- NOTE | 2019-04-04 12:40 | IPN ---
DATE OF VISIT: 04/04/2019 Mr. Maciel is seen this morning on his bedside. He remains intubated and has been somewhat upset. His eyes are open but did not respond very much. He was dialyzed yesterday and tolerated his dialysis treatment very well. On physical exam, temperature 98.9 degrees Fahrenheit, heart rate 76 per minute, and respiratory rate 20 per minute. Blood pressure 115/66 mmHg, and oxygen saturation 95%. Head is atraumatic. Endotracheal and nasogastric tubes are in place. Neck is supple and without jugular venous distention (JVD) or thyroid enlargement. Heart: Sounds are regular, and lungs have good bilateral air entry. Abdomen: Soft and nontender, and bowel sounds are normal. Extremities: Without any cyanosis or clubbing. Neurologically, he is responding with eyes open but not interacting much. Today's labs show WBC count 21.4, hemoglobin 10.5, and hematocrit 31.8. Platelets 287. Sodium 132, potassium 4.6, CO2 23, BUN 73 and creatinine 6.22. Calcium is 8.2 and phosphorus also 8.2. PROBLEMS: 1. End-stage renal disease. The patient was dialyzed yesterday, and we will plan to dialyze him again tomorrow. Today, there is no emergent need for dialysis as his volume status is well-compensated. 2. Hyponatremia. Mild hyponatremia related to end-stage renal disease and tube feeds. We will monitor without any intervention and it will correct with dialysis tomorrow. 3. Respiratory failure. Related to multiple factors, including strokes and possible aspiration with infiltrate. Volume status remains well-compensated, and there is no emergent need for dialysis. 4. Anemia. His anemia is stable at present, and we will continue to monitor and use Aranesp once a week with dialysis.
--- NOTE | 2019-04-04 14:28 | IPNPDOC ---
Date Seen The patient was seen on 04/04/19. Progress Note SUBJECTIVE: Patient seen and examined at bedside. No acute events overnight. He is intubated and not sedated. He continues to open his eyes spontaneously and is able to track. He continues to intermittently follow commands and intermittently answers yes/no questions. He followed the command to squeeze my hand but did not respond to any yes/no questions. OBJECTIVE: Vitals: See below GENERAL: Intubated, not on sedation, opens eyes spontaneously, intermittently responds to interpreters questions HEENT: Normocephalic, atraumatic. EOMI, PERRL, no scleral icterus, nares patent, ET tube in place. CARDIOVASCULAR: Regular rate and rhythm, no lower extremity edema RESPIRATORY: Clear to auscultation bilaterally, no wheezes. Patient with thick mucous noted with lavage and suction when direct sternal in-line suction her catheter tip directed towards the right ABDOMINAL: Soft, non-distended, positive bowel sounds EXTREMITIES: Spontaneously moves all for extremities, however more limited motion noted of right upper extremity NEUROLOGICAL: Awake and alert, intermittently follows commands SKIN: Warm and dry, unstageable sacral wound noted LABORATORY, MICRO, IMAGES: See below ASSESSMENT/PLAN: Patient is a 48-year-old male who presented to [facility] emergency department on 03/19/2019 after an out of hospital cardiac arrest. Patient reportedly at dialysis Center. He reportedly had completed dialysis and was standing to take a blood pressure when he collapsed and had possible seizure-like activity. Per review of hospital records, patient unresponsive and in PEA when EMS presented. ROSC was achieved after approximately 10 minutes out of hospital CPR. Patient was admitted to the ICU and underwent targeted temperature management. Patient was extubated on 03/27/2019, however, required reintubation for airway edema and started on Decadron. Patient successfully extubated 03/28/2019. During dialysis o n 03/30/2019, patient was noted to be de-satting, trialed on bipap, became unresponsive and decision was made to re-intubate after consent obtained from . Bronchoscopy was performed at bedside without significant findings and only a small amount of mucous was noted in the right lower lung. Patient remains intubated. #PEA Cardiac Arrest s/p ROSC - Unknown etiology, but likely hypoperfusion following dialysis s/p ROSC, TTM with meaningful neurologic recovery - Echo (03/24) with normal ejection fraction of 70%, no vegetations noted - MRI consistent with multiple acute and subacute bilateral CVAs #Acute hypoxic and hypercapnic respiratory failure - Likely secondary to laryngeal airway edema, pneumonia, and bronchospasm - Patient initially intubated on 03/19. Attempted extubation on 03/27 however patient failed due to airway edema and was reintubated 03/27. Extubated (03/28) and reintubated again on 03/30, likely due to aspiration with chest CT showing new right lower lobe pneumonia and patient started on abx. Will continue to trend WBC count. - Remains intubated on pressure support. cont daily CXR and ABGs while intubated - cont with dilaudid prn - will plan for possible extubation tomorrow AM - Titrate O2 to keep SpO2 > 92% # Unstageable Sacral wound - Wound care and surgery following, cont wound care management and f/u recs about debridement for area of necrosis - Continue antibiotics #Group B strep pneumonia - Slight downtrend of white count and pro-calcitonin, reordering procalcitonin today. - Continue Vanc, cefepime (03/31- present). Previously on Levaquin - Day 5 of vanc/cefepime regimen, will continue for 2 more days. #Multiple bilateral CVAs - Patient has a history of a PFO, with AMMY performed on 12/25/[address] Cid, though patient is listed under different ). Dr. Smith requested a follow up be arranged with him outpatient for implantable loop recorder (ILR). If no afibx3 months of ILR monitoring, then Dr. Karmen Heller at [facility] will implant a PFO closure device. - Unclear etiology at this time. Most recent TTE not showing clear etiology of strokes - Aspirin 324mg daily and Lipitor - Neurology following #DM2 -Continue insulin drip #Hypertriglyceridemia - Continue lipitor, monitor on propofol #ESRD - Plan for dialysis Sunday, , Sunday - Nephrology following #Hypertension - Continue amlodipine 10 mg daily, carvedilol 25 mg twice a day, hydralazine 100 mg every 8 #Deaf - Shade Matcher requested and currently at the bedside Resolved Hospital Problems: Laryngeal Airway Edema Diet: Continue tube feeds with Nepro 30cc/hr hold beniprotein, await new formulation per dietary recommendations DVT/GI ppx: Heparin SubQ, Protonix Vent: 8.0 ETT 24@lip, CPAP 5/5 40% L/T/D: NG, Right IJ Tunneled catheter (ORTHOPHOTOGRAPHY TECHNICIAN) Drips: Insulin CODE STATUS: DNR DNI. Signed MOLST form in the chart. , ARTIS De La Torre ([id number]) Disposition: Continue to monitor in the ICU while intubated. Continue broad- spectrum antibiotics. Anticipate extubation in the morning. VS, I&O, 24H, Fishbone Vital Signs/I&O Vital Signs Date Time Temp Pulse Resp B/P (MAP) Pulse Ox O2 Delivery O2 Flow Rate FiO2 04/04/19 12:00 30 04/04/19 12:00 99.7 73 20 102/52 (69) 98 Ventilator 03/30/19 16:52 30.0 I&O- Last 24 Hours up to 6 AM 04/04/19 06:00 Intake Total 2285 ml Output Total 1000 ml Balance 1285 ml Laboratory Data 24H LABS Laboratory Tests 2 04/03/19 14:47: Bedside Glucose (Misc Panel) 115H 04/03/19 16:59: Bedside Glucose (Misc Panel) 168H 04/03/19 18:57: Bedside Glucose (Misc Panel) 153H 04/03/19 21:01: Bedside Glucose (Misc Panel) 140H 04/03/19 23:03: Bedside Glucose (Misc Panel) 112H 04/04/19 00:57: Bedside Glucose (Misc Panel) 76 04/04/19 01:53: Bedside Glucose (Misc Panel) 121H 04/04/19 04:00: Bedside Glucose (Misc Panel) 192H 04/04/19 04:34: Immature Granulocyte % (Auto) 2.2, Neutrophils (%) (Auto) 76.7H, Lymphocytes (%) (Auto) 11.6L, Monocytes (%) (Auto) 8.3H, Eosinophils (%) (Auto) 1.0, Basophils (%) (Auto) 0.2, Neutrophils # (Auto) 16.4H, Lymphocytes # (Auto) 2.5, Monocytes # (Auto) 1.8H, Eosinophils # (Auto) 0.2, Basophils # (Auto) 0.1, Nucleated Red Blood Cells % (auto) 0.0, Anion Gap 15, Glomerular Filtration Rate 10.3L, Calcium Level 8.2L, Phosphorus Level 8.2H, Albumin 2.2L, Random Vancomycin Level 20.7 04/04/19 05:50: Bedside Glucose (Misc Panel) 201H 04/04/19 07:48: Bedside Glucose (Misc Panel) 178H 04/04/19 12:17: Bedside Glucose (Misc Panel) 137H CBC/BMP Laboratory Tests 04/04/19 04:34 Microbiology Microbiology 03/31/19 Blood Culture - Preliminary, Resulted No Growth after 72 hours. All specime... 03/31/19 Blood Culture - Preliminary, Resulted No Growth after 72 hours. All specime... 03/30/19 Gram Stain - Final, Complete 03/30/19 Sputum Culture - Final, Complete Strep Agalactiae Group B 03/26/19 Gram Stain - Final, Complete 03/26/19 Sputum Culture - Final, Complete Yeast Like Organism GME ATTESTATION GME ATTESTATION My faculty preceptor for this patient encounter was physically present during the encounter and was fully available. All aspects of the patient interview, examination, medical decision making process, and medical care plan development were reviewed and approved by the faculty preceptor. The faculty preceptor is aware and concurs with the plan as stated in the body of this note and will attest to such by his/her cosignature. ATTENDING NOTE I, Sarah Ivy, have independently seen and examined the patient and agree with the plan as detailed above. TAYLOR MERINO DO Apr 04, 2019 14:28 SARAH IVY MD Apr 05, 2019 14:30
[2019-04-04] MEDS: **VANCO AFTER HD** MISC XX SCH (16:00)
[2019-04-04] MEDS: CEFEPIME HCL 1 GM in D5W MINI-BAG PLUS 50 ML IV SCH (17:29)
[2019-04-04] MEDS: NORCO, ANEXSIA 5/325MG TABLET (HYDROcodone/ACETAMINOPHEN) PO PRN (19:34)
[2019-04-04] MEDS: ATORVASTATIN 20 MG TAB NG SCH (20:17)
[2019-04-04] MEDS: **NOTE PATIENT COMMENT** MISC XX SCH (20:23)
[2019-04-05] VITALS (26 sets, daily range): BP systolic 97–143; BP diastolic 52–72; O2SAT 95
[2019-04-05] MEDS: SODIUM CHLORIDE HYPERTONIC 3% 15ML NEB SOL INH SCH ×6 (00:37→20:22)
[2019-04-05] MEDS: ALBUTEROL SULFATE 2.5 MG/0.5 ML INH NEB SOLN NEB SCH ×6 (00:37→20:22)
[2019-04-05] MEDS: NORCO, ANEXSIA 5/325MG TABLET (HYDROcodone/ACETAMINOPHEN) PO PRN ×2 (02:47→19:05)
[2019-04-05 04:47] LABS: BASO # 0.1 10^3/uL (0.0-0.2); BASO % 0.2 % (0.0-1.0); EOS # 0.3 10^3/uL (0.0-0.5); EOS % 1.5 % (0.0-3.0); HEMATOCRIT 27.9 % (42.0-52.0); HEMOGLOBIN 9.2 g/dl (13.5-17.5); LYMPH % 14.3 % (24.0-44.0); MEAN CORPUSCULAR HEMOGLOBIN 31.3 pg (27.0-33.0); MEAN CORPUSCULAR VOLUME 94.9 fl (80.0-96.0); MONO # 1.8 10^3/uL (0.0-0.8); MONO % 8.6 % (0.0-5.0); NEUTROPHILS # 15.4 10^3/uL (1.5-8.5); NEUTROPHILS % 73.4 % (36.0-66.0); PLATELET COUNT, AUTOMATED 274 10^3/uL (150-450); RED BLOOD COUNT 2.94 10^6/uL (4.30-6.10)
[2019-04-05] MEDS: **hydrALAZINE** 50 MG TAB NG SCH ×3 (05:10→21:07)
[2019-04-05 05:24] LABS: CALCIUM LEVEL 8.2 MG/DL (8.5-10.1); CREATININE FOR GFR 8.67 MG/DL (0.70-1.30); POTASSIUM SERUM 4.8 MEQ/L (3.5-5.1); VANCOMYCIN RANDOM 22.1 UG/ML
[2019-04-05] MEDS: HEPARIN SOD (PORCINE) 5000 UNITS/ML VIAL (J1644 PER 1000UNITS) SC SCH ×3 (05:37→21:09)
[2019-04-05] MEDS: HumaLOG INSULIN (NovoLOG) PER UNIT SC SCH ×4 (05:37→23:43)
[2019-04-05 05:54] LABS: ABG BASE EXCESS -6.3 (-2.0-2.0); ABG HCO3 17.8 MEQ/L (22.0-26.0); ABG O2 SATURATION 98.5 % (95.0-99.0); ABG PARTIAL PRESSURE CO2 30.3 mmHg (35.0-45.0); ABG STANDARD HCO3 19.3 MEQ/L (22.0-26.0); ABG TOTAL CO2 18.8 MEQ/L (22.0-29.0); ABG pH (ARTERIAL) 7.388 UNITS (7.350-7.450)
[2019-04-05] MEDS: LOSARTAN 50 MG TAB NG SCH ×2 (09:00→20:23)
[2019-04-05] MEDS: CARVedilol 12.5 MG TAB NG SCH ×2 (09:00→20:23)
[2019-04-05] MEDS: amLODIPine 10 MG TAB NG SCH (09:00)
[2019-04-05] MEDS: FAMOTIDINE 20 MG TAB PO SCH ×2 (09:36→20:27)
[2019-04-05] MEDS: CHLORHEXIDINE GLUCONATE 0.12 % 15ML UDC (PERIDEX ORAL RINSE) MT SCH ×4 (09:50→20:27)
[2019-04-05] MEDS: LIDOCAINE 5% (LIDODERM) PATCH TD SCH (09:51)
[2019-04-05] MEDS: guaiFENesin SYRUP 200 MG/10 ML UDC PO SCH ×3 (09:51→20:27)
[2019-04-05] MEDS: ASPIRIN 81 MG CHEW TABLET GT SCH (09:51)
[2019-04-05] MEDS: SANTYL OINT 30GM TOP SCH ×2 (09:52→20:28)
--- NOTE | 2019-04-05 10:33 | REP ---
CHEST, SINGLE VIEW: Single view of the chest is performed. COMPARISON: 04/03/2019 There is again mild elevation of the right hemidiaphragm. No infiltrate is seen in either lung. Heart and mediastinum are unremarkable and unchanged. Right central venous catheter, endotracheal tube, and nasogastric tube are not definitely changed. IMPRESSION: Stable exam. Electronically Signed by Jacob Ponce MD 04/05/2019 06:38 P
--- NOTE | 2019-04-05 11:08 | IPNPDOC ---
Date Seen The patient was seen on 04/05/19. Progress Note SUBJECTIVE: Patient seen and examined at bedside. No acute events overnight. He is intubated and not sedated. He opens his eyes, tracks movement, is intermittently able to follow some commands. He squeezed my finger on command with both left and right hand, but not to release my finger on command. He did not respond to yes/no questions. OBJECTIVE: Vitals: See below GENERAL: Intubated, not on sedation, opens eyes spontaneously, intermittently responds to interpreters questions HEENT: Normocephalic, atraumatic. EOMI, PERRL, no scleral icterus, nares patent, ET tube in place. CARDIOVASCULAR: Regular rate and rhythm, no lower extremity edema RESPIRATORY: Clear to auscultation bilaterally, no wheezes. On suction patient has thick secretions, some of which appear to be from tube feeds possibly. ABDOMINAL: Soft, non-distended, positive bowel sounds EXTREMITIES: Spontaneously moves all for extremities, however more limited motion noted of right upper extremity NEUROLOGICAL: Awake and alert, intermittently follows commands SKIN: Warm and dry, unstageable sacral wound noted LABORATORY, MICRO, IMAGES: See below ASSESSMENT/PLAN: Patient is a 48-year-old male who presented to [facility] emergency department on 03/19/2019 after an out of hospital cardiac arrest. Patient reportedly at dialysis Center. He reportedly had completed dialysis and was standing to take a blood pressure when he collapsed and had possible seizure-like activity. Per review of hospital records, patient unresponsive and in PEA when EMS presented. ROSC was achieved after approximately 10 minutes out of hospital CPR. Patient was admitted to the ICU and underwent targeted temperature management. Patient was extubated on 03/27/2019, however, required reintubation for airway edema and started on Decadron. Patient successfully extubated 03/28/2019. During dialysis on 03/30/2019, patient was noted to be de-satting, trialed on bipap, became unresponsive and decision was made to re-intubate after consent obtained from . Bronchoscopy was performed at bedside without significant findings and only a small amount of mucous was noted in the right lower lung. Patient remains intubated. He was placed on broad spectrum abx for an elevating WBC count out of concern for RLLL pneumonia and sacral wound. #PEA Cardiac Arrest s/p ROSC - Unknown etiology, but likely hypoperfusion following dialysis s/p ROSC, TTM with meaningful neurologic recovery - Echo (03/24) with normal ejection fraction of 70%. - MRI consistent with multiple acute and subacute bilateral CVAs #Acute hypoxic and hypercapnic respiratory failure - Likely secondary to laryngeal airway edema, pneumonia, and bronchospasm - Patient initially intubated on 03/19. Attempted extubation on 03/27 however patient failed due to airway edema and was reintubated 03/27. Extubated (03/28) and reintubated again on 03/30. Unclear etiology for current intubation, chest CT showing right lower lobe pneumonia and patient started on abx. Will continue to trend WBC count. - Chest x-ray independently visualized no acute abnormalities noted, no noticeable infiltrate appreciated on portable x-ray as of . - Chest PT, hypertonic saline nebulizers for secretions - Remains intubated on pressure support, patient to receive dialysis today and his will be off work tomorrow so we will plan for extubation tomorrow. - Titrate O2 to keep SpO2 > 92% # Unstageable Sacral wound - Wound care and surgery have been consulted. Will continue with bedside wound care from staff. - Continue antibiotics #Leukocytosis - Thought to be secondary to right lower lobe pneumonia 03/09 group B strep per sputum culture, sacral wound, and steroids. Steroids have been dc'd for>48 jean claude rs. Patient has been on broad spectrum abx for several days, will add on fluconazole to cover for possible fungal infection as well since WBC count has downtrended but appears to be leveling off and is still fairly high. - Continue Vanc, cefepime (03/31- present). Previously on Levaquin - Day 6 of vanc/cefepime regimen, will continue for 1 more day. #Multiple bilateral CVAs - Patient has a history of a PFO, with AMMY performed on 12/25/[address] Cid, though patient is listed under different ). Dr. Smith requested a follow up be arranged with him outpatient for implantable loop recorder (ILR). If no afibx3 months of ILR monitoring, then Dr. Karmen Heller at [facility] will implant a PFO closure device. - Unclear etiology at this time. Most recent TTE not showing clear etiology of strokes - Aspirin 324mg daily and Lipitor - Neurology following #DM2 -Continue insulin drip #Hypertriglyceridemia - Continue lipitor, monitor on propofol #ESRD - Plan for dialysis Sunday, , Sunday - Nephrology following #Hypertension - Continue amlodipine 10 mg daily, carvedilol 25 mg twice a day, hydralazine 100 mg every 8 #Deaf - Mailroom Coordinator requested and currently at the bedside Resolved Hospital Problems: Laryngeal Airway Edema Diet: start intermittent tube feeds done in upright position to help patient with possible reflux issues, continue nepro 1 carton q8h with benaprotein add- on. DVT/GI ppx: Heparin SubQ, Protonix Vent: 8.0 ETT 24@lip, CPAP 5/5 40% L/T/D: NG, Right IJ Tunneled catheter (AUTOCLAVE OPERATOR) Drips: Insulin CODE STATUS: DNR DNI. Signed MOLST form in the chart. , ARTIS De La Torre ([id number]) Disposition: Continue to monitor in the ICU while intubated. VS, I&O, 24H, Fishbone Vital Signs/I&O Vital Signs Date Time Temp Pulse Resp B/P (MAP) Pulse Ox O2 Delivery O2 Flow Rate FiO2 04/05/19 09:00 80 16 143/71 (95) 98 Ventilator 30 04/05/19 08:00 98.2 03/30/19 16:52 30.0 I&O- Last 24 Hours up to 6 AM 04/05/19 06:00 Intake Total 1958 ml Balance 1958 ml Laboratory Data 24H LABS Laboratory Tests 2 04/04/19 12:17: Bedside Glucose (Misc Panel) 137H 04/04/19 17:26: Bedside Glucose (Misc Panel) 229H 04/04/19 23:24: Bedside Glucose (Misc Panel) 224H 04/05/19 04:38: Immature Granulocyte % (Auto) 2.0, Neutrophils (%) (Auto) 73.4H, Lymphocytes (%) (Auto) 14.3L, Monocytes (%) (Auto) 8.6H, Eosinophils (%) (Auto) 1.5, Basophils (%) (Auto) 0.2, Neutrophils # (Auto) 15.4H, Lymphocytes # (Auto) 3.0, Monocytes # (Auto) 1.8H, Eosinophils # (Auto) 0.3, Basophils # (Auto) 0.1, Nucleated Red Blood Cells % (auto) 0.0, Anion Gap 16, Glomerular Filtration Rate 7.0L, Calcium Level 8.2L, Random Vancomycin Level 22.1 04/05/19 05:31: Blood Gas Bicarbonate Standard 19.3L, Arterial Blood pH 7.388, Arterial Blood Partial Pressure CO2 30.3L, Arterial Blood Partial Pressure O2 145.0H, Arterial Blood Total CO2 18.8L, Arterial Blood HCO3 17.8L, Arterial Blood Base Excess - 6.3L, Arterial Blood Oxygen Saturation 98.5 CBC/BMP Laboratory Tests 04/05/19 04:38 Microbiology Microbiology 03/31/19 Blood Culture - Preliminary, Resulted No Growth after 72 hours. All specime... 03/31/19 Blood Culture - Preliminary, Resulted No Growth after 72 hours. All specime... 03/30/19 Gram Stain - Final, Complete 03/30/19 Sputum Culture - Final, Complete Strep Agalactiae Group B 03/26/19 Gram Stain - Final, Complete 03/26/19 Sputum Culture - Final, Complete Yeast Like Organism GME ATTESTATION GME ATTESTATION My faculty preceptor for this patient encounter was physically present during the encounter and was fully available. All aspects of the patient interview, examination, medical decision making process, and medical care plan development were reviewed and approved by the faculty preceptor. The faculty preceptor is aware and concurs with the plan as stated in the body of this note and will attest to such by his/her cosignature. TAYLOR MERINO DO Apr 05, 2019 11:08
[2019-04-05] MEDS ORDERED: HEPARIN 1,000 UNITS/ML 10ML VIAL (FOR RADIOLOGY& DIALYSIS ONLY)(J1644-10) XX ONE (12:45)
[2019-04-05] MEDS ORDERED: HEPARIN 1,000 UNITS/ML 10ML VIAL (FOR RADIOLOGY& DIALYSIS ONLY)(J1644-10) IV ONE (12:45)
[2019-04-05] MEDS: (RENVELA) SEVELAMER **CARBONate** 800 MG TAB NG SCH ×2 (16:00→23:36)
[2019-04-05] MEDS ORDERED: VANCOMYCIN HCL 750 MG, VIAL MATE ADAPTER 1 EACH in D5W 250 ML IV ONE (16:00)
[2019-04-05] MEDS ORDERED: FLUCONAZOLE 400 MG in IV 1 EA IV SCH (17:00)
[2019-04-05] MEDS: ATORVASTATIN 20 MG TAB NG SCH (20:27)
[2019-04-05] MEDS: **NOTE PATIENT COMMENT** MISC XX SCH (20:28)
[2019-04-05] MEDS: HYDROMORPHONE HCL 0.5 MG/ 0.5 ML SYRINGE (J1170 PER 1) IV PRN (23:34)
[2019-04-05] MEDS: **VANCO AFTER HD** MISC XX SCH (23:35)
[2019-04-06] VITALS (25 sets, daily range): BP systolic 98–147; BP diastolic 51–80; O2SAT 96
[2019-04-06] MEDS: ALBUTEROL SULFATE 2.5 MG/0.5 ML INH NEB SOLN NEB SCH ×6 (00:35→19:52)
[2019-04-06] MEDS: SODIUM CHLORIDE HYPERTONIC 3% 15ML NEB SOL INH SCH ×6 (00:35→19:53)
[2019-04-06] MEDS: CEFEPIME HCL 1 GM in D5W MINI-BAG PLUS 50 ML IV SCH ×2 (00:37→18:06)
[2019-04-06] MEDS: NORCO, ANEXSIA 5/325MG TABLET (HYDROcodone/ACETAMINOPHEN) PO PRN (03:49)
[2019-04-06 04:20] LABS: BASO # 0.1 10^3/uL (0.0-0.2); BASO % 0.3 % (0.0-1.0); EOS # 0.4 10^3/uL (0.0-0.5); EOS % 2.6 % (0.0-3.0); HEMOGLOBIN 9.9 g/dl (13.5-17.5); LYMPH # 2.6 10^3/uL (1.5-5.0); LYMPH % 16.8 % (24.0-44.0); MEAN CORPUSCULAR HEMOGLOBIN 30.8 pg (27.0-33.0); MEAN CORPUSCULAR VOLUME 93.5 fl (80.0-96.0); MONO # 1.5 10^3/uL (0.0-0.8); MONO % 9.5 % (0.0-5.0); NEUTROPHILS # 10.7 10^3/uL (1.5-8.5); NEUTROPHILS % 68.3 % (36.0-66.0); PLATELET COUNT, AUTOMATED 289 10^3/uL (150-450); RED BLOOD COUNT 3.21 10^6/uL (4.30-6.10); WHITE BLOOD COUNT 15.6 10^3/uL (4.0-10.0)
[2019-04-06 04:53] LABS: CALCIUM LEVEL 8.4 MG/DL (8.5-10.1); CREATININE FOR GFR 5.66 MG/DL (0.70-1.30); GLOMERULAR FILTRATION RATE 11.5 (>60); POTASSIUM SERUM 4.3 MEQ/L (3.5-5.1)
[2019-04-06] MEDS: **hydrALAZINE** 50 MG TAB NG SCH ×3 (05:10→20:31)
[2019-04-06] MEDS: HEPARIN SOD (PORCINE) 5000 UNITS/ML VIAL (J1644 PER 1000UNITS) SC SCH ×3 (05:14→20:46)
[2019-04-06] MEDS: HumaLOG INSULIN (NovoLOG) PER UNIT SC SCH ×3 (05:15→18:06)
[2019-04-06 06:03] LABS: ABG HCO3 23.3 MEQ/L (22.0-26.0); ABG O2 SATURATION 98.5 % (95.0-99.0); ABG PARTIAL PRESSURE CO2 37.1 mmHg (35.0-45.0); ABG PARTIAL PRESSURE O2 130.8 mmHg (75.0-100.0); ABG STANDARD HCO3 23.7 MEQ/L (22.0-26.0); ABG TOTAL CO2 24.4 MEQ/L (22.0-29.0); ABG pH (ARTERIAL) 7.416 UNITS (7.350-7.450)
[2019-04-06] MEDS: ASPIRIN 81 MG CHEW TABLET GT SCH (08:08)
[2019-04-06] MEDS: (RENVELA) SEVELAMER **CARBONate** 800 MG TAB NG SCH ×2 (08:08→15:13)
[2019-04-06] MEDS: FAMOTIDINE 20 MG TAB PO SCH ×2 (08:09→20:45)
[2019-04-06] MEDS: LIDOCAINE 5% (LIDODERM) PATCH TD SCH (08:09)
[2019-04-06] MEDS: CHLORHEXIDINE GLUCONATE 0.12 % 15ML UDC (PERIDEX ORAL RINSE) MT SCH ×4 (08:09→20:44)
[2019-04-06] MEDS: guaiFENesin SYRUP 200 MG/10 ML UDC PO SCH ×3 (08:09→20:45)
[2019-04-06] MEDS: SANTYL OINT 30GM TOP SCH ×2 (08:10→20:46)
[2019-04-06] MEDS: CARVedilol 12.5 MG TAB NG SCH ×2 (09:00→20:44)
[2019-04-06] MEDS: amLODIPine 10 MG TAB NG SCH (09:00)
[2019-04-06] MEDS: LOSARTAN 50 MG TAB NG SCH ×2 (09:00→20:32)
--- NOTE | 2019-04-06 09:10 | IPN ---
DATE: 04/05/2019 Mr. Maciel is seen this morning on his bedside in the intensive care unit. His mother is present and juice mixer is also present in the room. The patient remains intubated and awake, but not interacting much though he is following some questions. The juice mixer states that he has not talked at all, even with his sign language. PHYSICAL EXAMINATION: Temperature 98.2 degrees Fahrenheit, heart rate 74 per minute and respiratory rate 18 per minute on the ventilator. Blood pressure 143/70 mmHg and oxygen saturation 98% on 30% FiO2. Head is atraumatic. Neck supple and JVD difficult to be assessed. Endotracheal and nasogastric tubes are in place. Heart sounds are regular and lungs have good bilateral air entry. Abdomen soft and nontender and bowel sounds are normal. Extremities without any cyanosis or clubbing. Neurologically, he is awake but not at his baseline as yet. Today's labs show WBC count 21.0, hemoglobin 9.2 and hematocrit 27.9. Sodium 133, potassium 4.8, CO2 21, BUN 109 and creatinine 8.67. Glucose 275 and calcium 8.2. PROBLEMS: 1. End-stage renal disease. The patient is due for dialysis and will be dialyzed later today. His electrolytes and volume status has been stable. 2. Respiratory failure. Mostly related to his neurological issues and not volume overload. He also had a small infiltrate on the chest x-ray. We will try to remove 2.5 liters of fluid today as tolerated. He does not have any clinical or radiological evidence for volume overload. 3. Anemia. His anemia is stable and we will continue with Aranesp once a week. 4. Hyperphosphatemia. His phosphorus level was 8.2 yesterday and I am going to start on a phosphate binder with feeds. I have discussed with Dr. Ivy and suggested to switch his tube feeding to intermittent bolus and we can add phosphate binder along with the feeds.
--- NOTE | 2019-04-06 10:15 | REP ---
CHEST, SINGLE VIEW: Single view of the chest is performed and compared with prior study of 04/05/2019. There is no definite change in the endotracheal tube, nasogastric tube, and right central venous catheter. Heart and mediastinum are unchanged. There is poor ventilation. Mild elevation of the right hemidiaphragm is again seen with adjacent mild atelectatic change. There also appears to be mild atelectatic change in the left base. IMPRESSION: Stable exam. Electronically Signed by Jacob Ponce MD 04/06/2019 06:31 P
[2019-04-06] MEDS: HYDROMORPHONE HCL 0.5 MG/ 0.5 ML SYRINGE (J1170 PER 1) IV PRN ×2 (10:40→21:07)
[2019-04-06 15:54] LABS: VANCOMYCIN RANDOM 23.6 UG/ML
[2019-04-06] MEDS: **VANCO AFTER HD** MISC XX SCH (16:00)
--- NOTE | 2019-04-06 17:44 | IPNPDOC ---
Text Note Date of Service The patient was seen on 04/06/19. NOTE Subjective: Patient somnolent. as per nurse just got a dose of dilaudid as he was in discomfort from his back. Continues to have persisten coughing. Good effort but unable to bring it up . Needing frequent suctioning. Vitals: See below GENERAL: extubated, somnolent, but easily arousable. HEENT: Normocephalic, atraumatic. EOMI, PERRL, no scleral icterus, nares patent, NG tube in place CARDIOVASCULAR: Regular rate and rhythm, no lower extremity edema RESPIRATORY: Clear to auscultation bilaterally, no wheezes. On suction patient has thick secretions ABDOMINAL: Soft, non-distended, positive bowel sounds EXTREMITIES: Spontaneously moves all for extremities, however more limited motion noted of right upper extremity NEUROLOGICAL: Somnolent, eyes tracking when woken up, intermittently follows commands SKIN: Warm and dry, unstageable sacral wound noted Labs and radiology: Noted. ASSESSMENT/PLAN: Patient is a 48-year-old male who presented to [facility] emergency department on 03/19/2019 after an out of hospital cardiac arrest. Patient reportedly at dialysis Center. He reportedly had completed dialysis and was standing to take a blood pressure when he collapsed and had possible seizure-like activity. Per review of hospital records, patient unresponsive and in PEA when EMS presented. ROSC was retrieved after approximately 10 minutes out of hospital CPR. Patient could not be intubated in field and was brought to the ED with LMA in place. Patient was admitted to the ICU and underwent targeted temperature management. Patient was extubated on 03/27/2019, however, required reintubation for airway edema and started on Decadron. Patient successfully extubated 03/28/2019. During the course of hospital stay, patient with increased lethargy and increased work of breathing necessitating re-intubation on 03/30/2019. he was found to have developed pneumonia, aspiration and with again worsening of respiratory status. Patient now has been successfully extubated again on 04/06/19. PEA Cardiac Arrest s/p ROSC Unknown etiology, but likely hypoperfusion following dialysis s/p ROSC, TTM with meaningful neurologic recovery Echo (03/24) with normal ejection fraction of 70% MRI consistent with multiple acute and subacute bilateral CVAs Patient became unresponsive during HD Recurrent Acute hypoxic and hypercapnic respiratory failure Likely secondary to laryngeal airway edema, and pneumonia, and bronchospasm Patient initially intubated on 03/19. Attempted expiration 03/27 however patient failed due to airway edema and was reintubated 03/27. Extubated (03/28) and reint ubated again on 03/30 resolved. Had 3 intubations and extubations. Now again extubated on 04/06/19. Fam franca do not want any further intubations. MOLST form has been updated. Patient is now DNR and DNI. currently on vapotherm maintaining oxygenation. Dysphagia continues on NG tube feeds. will need swallow eval. Aspiration and ventilator associated Pneumonia on Cefepime , vancomycin and fluconazole. 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 CT angio of the chest negative for PE. Aspirin 324 g daily, and Lipitor Neurology following Prior history of pontine stroke in December 2018 measuring about 8 mm in size on the right side with associated known patent foramen ovale (PFO). The patient was seen by doctors at [facility] who recommended against closure of PFO and rather recommended implantation of loop recorder to assess for possible atrial fibrillation causing the patient's embolic strokes. Sacral pressure ulcer [place], Dilaudid PRN. Monitor respiratory status No debridement needed as per surgery DM2 Continue sliding scale. Increase Lantus 16U, and scheduled Lispro. Hypertriglyceridemia lipitor ESRD Plan for dialysis Sunday Nephrology following Hypertension Continue amlodipine 10 mg daily, carvedilol 25 mg twice a day, hydralazine Deaf Railroad Watchman requested and currently at the bedside Visual impairment of both eyes. VS,Fishbone, I+O VS, Fishbone, I+O Laboratory Tests 04/06/19 04:10 Vital Signs Date Time Temp Pulse Resp B/P (MAP) Pulse Ox O2 Delivery O2 Flow Rate FiO2 04/06/19 11:57 81 19 04/06/19 10:51 92 04/06/19 09:00 122/70 04/06/19 07:52 Ventilator 30 04/06/19 04:00 98.7 I&O- Last 24 Hours up to 6 AM 04/06/19 06:00 Intake Total 1985 ml Output Total 2500 ml Balance -515 ml DELISA PAIGE MD 1, 2020 13:19
--- NOTE | 2019-04-06 19:02 | CCN ---
DATE: 04/06/2019 Patient was seen and examined this morning during bedside rounds. He is intubated and is not sedated. He is on pressure support on the ventilator. Patient is able to open his eyes and track movement, as well as intermittently follow commands. Patient had no events overnight, has been afebrile. He did have dialysis yesterday, which he tolerated well. PHYSICAL EXAMINATION: Temperature 98.7, pulse 75, respirations 19, blood pressure 104/63, oxygen saturation 96% on the 30% FiO2. Intake 2.1 liters, out 2.5 liters. General: Patient is intubated, is not sedated, is opening eyes spontaneously, tracking movements and only intermittently responding to the family who would interpret questions. HEENT: Normocephalic, atraumatic. Pupils are reactive to light bilaterally. There is no scleral icterus. There is a nasogastric (NG) tube in place and an endotracheal (ET) tube in place. Cardiovascular: Regular rate and rhythm, no murmurs or gallops auscultated. Pulmonary: Some coarse ventilator breath sounds bilaterally but no significant wheezing or rhonchi noted. He does have some thick secretions on suctioning. Abdomen: Soft, nontender, nondistended. Positive bowel sounds. Extremities: There is no lower extremity edema noted bilaterally. Patient moves his lower extremities spontaneously, as well as his left arm, but does not move his right upper extremity. LABORATORY DATA: WBC 15.6, hemoglobin 9.9, platelets 289. Chemistry: Sodium 133, potassium 4.3, chloride 95, bicarbonate 25, BUN 60, creatinine 5.06, glucose 248. ABG: pH is 7.416, pCO2 of 37.1, pO2 of 130.8. Chest x-ray showed ET tube in position. NG tube is in place although unable to clearly see if it is below the diaphragm. There is a right subclavian dialysis catheter in place. ASSESSMENT AND PLAN: Mr. Maciel is a 48-year-old male with a past medical history of end-stage renal disease (ESRD), hypertension, diabetes, who is deaf, and had initially presented with an out of hospital cardiac arrest while at the dialysis center. Patient did have a targeted temperature management post- cardiac arrest and had neurologic recovery. He was able to be extubated on 03/27/2019, however required reintubation for stridor and laryngeal edema. He was then extubated again on 03/28/2019, however on 03/30/2019 patient was noted to have episodes of desaturation and hypoxemia with concern for possible aspiration and required reintubation and mechanical ventilation. Patient was found to have a right lower lobe pneumonia and was started on antibiotics. Patient has had evidence of CVAs on imaging and does have a previous history of patent foramen ovale (PFO). Acute hypoxemic and hypercarbic respiratory failure with his third intubation likely secondary to aspiration and pneumonia. He had initially been intubated for cardiac arrest and then had another intubation for laryngeal edema and his third intubation was likely in the setting of aspiration and mucus plugging with new right lower lobe infiltrate noted on CT. - Patient does continue to have some thick secretions on suctioning but he does have a strong cough. His white count has improved and he has been afebrile and he is maintained on minimal ventilator settings on pressure support for the past few days. Discussed with the patient's and his mother at the bedside that he would likely be able to tolerate extubation but there is some concern about his ability for airway protection and aspiration, particularly given his history on this admission of multiple acute and subacute bilateral CVAs. Patient's family had previously had a Medical Orders for Life-Sustaining Treatment (MOLST) filled out stating he was a DO NOT RESUSCITATE/DO NOT INTUBATE and they did state that he would not want any prolonged ventilation or a tracheostomy. - Will extubate patient to Vapotherm for oxygen supplementation and continue to wean down the settings as tolerated. Will continue with head of bed elevation and aspiration precautions, as well as hypertonic nebulizer treatments and chest PT for mucus clearance and pulmonary toilet. - Patient's family has stated that if he were to have worsening hypoxemia and worsening hypoxic respiratory failure, that they would like him to be made comfort measures only. - Will continue with his antibiotics for his pneumonia. His sputum culture has grown group B Streptococcus. He was also added on fluconazole yesterday for fungal coverage and his white blood cells (WBCs) have continued to trend down. - Continue with cefepime and vancomycin for a total of 7 days. His last procalcitonin was still significantly elevated but had been trending down so would likely deescalate from cefepime and vancomycin to Levaquin and continue to trend his procalcitonin to aid in discontinuing of antibiotics. Will continue with antifungal coverage for now. History of multiple bilateral CVAs with a previous history of patent foramen ovale (PFO). His last transesophageal echocardiogram (AMMY) was performed in [address] Smith and he is due for followup with Dr. Smith for an implantable loop recorder as an outpatient. - His repeat transthoracic echocardiogram (TTE) during this admission did not show any evidence of vegetation and his blood cultures have remained negative. - Continue with aspirin and Lipitor. Neurology had previously been consulted and evaluated the patient. - Patient will need physical therapy/occupational therapy (PT/OT) given his CVAs and deconditioning. - Will continue with nasogastric (NG) tube for now and keep him nothing by mouth pending a speech and swallow evaluation. End-stage renal disease (ESRD) with history of hypertension and hyperphosphatemia. - Continue dialysis as per renal on Sunday, , Sunday. Continue with antihypertensives and phosphorous binders. - Continue with insulin coverage and sliding scale. Deep venous thrombosis (DVT) prophylaxis with heparin subcutaneous. Gastrointestinal (GI) prophylaxis with Protonix. Code status: DO NOT RESUSCITATE/DO NOT INTUBATE. Total critical care time spent not including procedures approximately 40 minutes. MTDD
[2019-04-06] MEDS: **NOTE PATIENT COMMENT** MISC XX SCH (20:31)
[2019-04-06] MEDS: ATORVASTATIN 20 MG TAB NG SCH (20:45)
[2019-04-06] MEDS ORDERED: LEVEMIR (INSULIN DETEMIR) 1 UNITS/0.01ML SC SCH (21:00)
[2019-04-07] VITALS (15 sets, daily range): BP systolic 96–146; BP diastolic 52–73
[2019-04-07] MEDS: ALBUTEROL SULFATE 2.5 MG/0.5 ML INH NEB SOLN NEB SCH ×7 (00:20→23:56)
[2019-04-07] MEDS: SODIUM CHLORIDE HYPERTONIC 3% 15ML NEB SOL INH SCH ×5 (00:20→15:11)
[2019-04-07] MEDS: (RENVELA) SEVELAMER **CARBONate** 800 MG TAB NG SCH ×2 (00:30→08:00)
[2019-04-07] MEDS: HumaLOG INSULIN (NovoLOG) PER UNIT SC SCH ×2 (00:31→06:14)
[2019-04-07 01:18] LABS: ABG BASE EXCESS -4.3 (-2.0-2.0); ABG HCO3 20.4 MEQ/L (22.0-26.0); ABG O2 SATURATION 88.6 % (95.0-99.0); ABG PARTIAL PRESSURE O2 61.8 mmHg (75.0-100.0); ABG STANDARD HCO3 20.7 MEQ/L (22.0-26.0); ABG TOTAL CO2 21.5 MEQ/L (22.0-29.0); ABG pH (ARTERIAL) 7.371 UNITS (7.350-7.450)
[2019-04-07] MEDS ORDERED: LevoFLOXacin IV 750 MG in IV 1 EA IV SCH (02:00)
[2019-04-07 04:45] LABS: HEMATOCRIT 32.5 % (42.0-52.0); HEMOGLOBIN 10.5 g/dl (13.5-17.5); MEAN CORPUSCULAR HEMOGLOBIN 30.1 pg (27.0-33.0); MEAN CORPUSCULAR HGB CONC 32.3 g/dl (32.0-36.5); MEAN CORPUSCULAR VOLUME 93.1 fl (80.0-96.0); PLATELET COUNT, AUTOMATED 318 10^3/uL (150-450); RED BLOOD COUNT 3.49 10^6/uL (4.30-6.10); WHITE BLOOD COUNT 8.5 10^3/uL (4.0-10.0)
[2019-04-07 05:12] LABS: CALCIUM LEVEL 8.1 MG/DL (8.5-10.1); CREATININE FOR GFR 8.27 MG/DL (0.70-1.30); GLOMERULAR FILTRATION RATE 7.4 (>60); POTASSIUM SERUM 6.1 MEQ/L (3.5-5.1); VANCOMYCIN RANDOM 20.8 UG/ML
[2019-04-07 05:13] LABS: BASOPHILS 1 % (0-1); EOSINOPHILS 2 % (0-3); LYMPHOCYTES 25 % (16-44); METAMYELOCYTES 5 % (0-0); MONOCYTES 1 % (0-5); NEUTROPHILS 60 % (28-66); PLATELET ESTIMATE NORMAL (NORMAL)
[2019-04-07 05:14] LABS: POLYCHROMASIA 1+
[2019-04-07] MEDS: **hydrALAZINE** 50 MG TAB NG SCH (05:31)
[2019-04-07] MEDS: HEPARIN SOD (PORCINE) 5000 UNITS/ML VIAL (J1644 PER 1000UNITS) SC SCH ×2 (06:14→14:00)
[2019-04-07] MEDS: CARVedilol 12.5 MG TAB NG SCH (08:04)
[2019-04-07] MEDS: LOSARTAN 50 MG TAB NG SCH (08:04)
[2019-04-07] MEDS: amLODIPine 10 MG TAB NG SCH (08:05)
[2019-04-07] MEDS: FAMOTIDINE 20 MG TAB PO SCH (08:05)
[2019-04-07] MEDS: guaiFENesin SYRUP 200 MG/10 ML UDC PO SCH (08:05)
[2019-04-07] MEDS: ASPIRIN 81 MG CHEW TABLET GT SCH (08:05)
--- NOTE | 2019-04-07 08:08 | REP ---
Portable chest x-ray: Single view. History: Aspiration. Comparison study: April 06, 2019. Findings: EKG monitoring electrodes overlie the chest. Oxygen delivery tubing is seen. A tunneled central venous catheter is noted in place with in the expected location of the superior vena cava. Nasogastric tube enters left upper quadrant. No definite infiltrate. Pleural angles are sharp. Impression: No definite infiltrate seen. Electronically Signed by Vince Daugherty MD 04/07/2019 08:01 A
[2019-04-07] MEDS: SANTYL OINT 30GM TOP SCH ×2 (09:00→23:02)
[2019-04-07] MEDS: LIDOCAINE 5% (LIDODERM) PATCH TD SCH (09:00)
--- NOTE | 2019-04-07 11:03 | IPNPDOC ---
Text Note Date of Service The patient was seen on 04/07/19. NOTE Subjective: Does not look well today. Awake and eyes tracking but not following any commands. Had aspiration of the tube feeds last night with hypoxia and hypotension. Tubes feeds have been stopped. Ng tube will have to come out today has been in for several days. Spoke with mother regarding feeding tube she does not want it will discuss with when she comes in later today as she is the primary HCP and discuss about DIE CAST TECHNICIAN also. Vitals: See below GENERAL: extubated, somnolent, but easily arousable. HEENT: Normocephalic, atraumatic. EOMI, PERRL, no scleral icterus, nares patent, NG tube in place CARDIOVASCULAR: Regular rate and rhythm, no lower extremity edema RESPIRATORY: Clear to auscultation bilaterally, no wheezes. On suction patient has thick secretions ABDOMINAL: Soft, non-distended, bowel sounds are sluggish. EXTREMITIES: Spontaneously moves all for extremities, however more limited motion noted of right upper extremity NEUROLOGICAL: Somnolent, eyes tracking when woken up, intermittently follows commands SKIN: Warm and dry, unstageable sacral wound noted Labs and radiology: Noted. ASSESSMENT/PLAN: Patient is a 48-year-old male who presented to [facility] emergency department on 03/19/2019 after an out of hospital cardiac arrest. Patient reportedly at dialysis Center. He reportedly had completed dialysis and was standing to take a blood pressure when he collapsed and had possible seizure-like activity. Per review of hospital records, patient unresponsive and in PEA when EMS presented. ROSC was retrieved after approximately 10 minutes out of hospital CPR. Patient could not be intubated in field and was brought to the ED with LMA in place. Patient was admitted to the ICU and underwent targeted temperature management. Patient was extubated on 03/27/2019, however, required reintubation for airway edema and started on Decadron. Patient successfully extubated 03/28/2019. During the course of hospital stay, patient with increased lethargy and increased work of breathing necessitating re-intubation on 03/30/2019. he was found to have developed pneumonia, aspiration and with again worsening of respiratory status. Patient now has been successfully extubated again on 04/06/19. PEA Cardiac Arrest s/p ROSC Unknown etiology, but likely hypoperfusion following dialysis s/p ROSC, TTM with meaningful neurologic recovery Echo (03/24) with normal ejection fraction of 70% MRI consistent with multiple acute and subacute bilateral CVAs Patient became unresponsive during HD Recurrent Acute hypoxic and hypercapnic respiratory failure Likely secondary to laryngeal airway edema, and pneumonia, and bronchospasm Patient initially intubated on 03/19. Attempted expiration 03/27 however patient failed due to airway edema and was reintubated 03/27. Extubated (03/28) and reintubated again on 03/30 resolved. Had 3 intubations and extubations. Now again extubated on 04/06/19. Family do not want any further intubations. MOLST form has been updated. Patient is now DNR and DNI. currently on vapotherm maintaining oxygenation. Dysphagia with aspiration tube laboy on hold. Aspiration and ventilator associated Pneumonia on Cefepime , vancomycin and fluconazole. 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 CT angio of the chest negative for PE. Aspirin 324 g daily, and Lipitor Neurology following Prior history of pontine stroke in December 2018 measuring about 8 mm in size on the right side with associated known patent foramen ovale (PFO). The patient was seen by doctors at [facility] who recommended against closure of PFO and rather recommended implantation of loop recorder to assess for possible atrial fibrillation causing the patient's embolic strokes. Sacral pressure ulcer [place], Dilaudid PRN. Monitor respiratory status No debridement needed as per surgery DM2 Continue sliding scale. Increase Lantus 16U, and scheduled Lispro. Hypertriglyceridemia lipitor ESRD Plan for dialysis Sunday Nephrology following Hypertension Continue amlodipine 10 mg daily, carvedilol 25 mg twice a day, hydralazine Deaf Internal Carver requested and currently at the bedside Visual impairment of both eyes. Code : DNR/DNI VS,Fishbone, I+O VS, Fishbone, I+O Laboratory Tests 04/07/19 04:22 Vital Signs Date Time Temp Pulse Resp B/P (MAP) Pulse Ox O2 Delivery O2 Flow Rate FiO2 04/07/19 08:04 92 98/53 04/07/19 07:42 92 HVNI-Vapotherm 35.0 80 04/07/19 04:00 97.4 22 I&O- Last 24 Hours up to 6 AM 04/07/19 06:00 Intake Total 1230 ml Balance 1230 ml DELISA PAIGE MD Apr 07, 2019 11:03
[2019-04-07] MEDS: CHLORHEXIDINE GLUCONATE 0.12 % 15ML UDC (PERIDEX ORAL RINSE) MT SCH ×2 (12:32→13:00)
[2019-04-07] MEDS ORDERED: SOD POLYSTYRENE SULFONATE SUSP 15 GM/60 ML UD NG ONE (13:00)
--- NOTE | 2019-04-07 14:22 | IPN ---
DATE: 04/06/2019 Mr. Maciel is seen this morning on his bedside in intensive care unit. He has been extubated this morning and seems to be slightly better interactive today. He is awake and frequent suctioning is being done on the bedside due to frequent cough. He still has nasogastric tube in place; however, feeding is on hold. The patient was dialyzed late afternoon, early evening yesterday, which he tolerated well. PHYSICAL EXAMINATION: The patient is awake and has frequent cough. Temperature is 98.2 degrees Fahrenheit, heart rate 72 per minute and respiratory rate 18 per minute. Blood pressure 125/62 mmHg and oxygen saturation is 92%. Head is atraumatic. Neck is supple and jugular venous distention (JVD) not abnormally elevated. Endotracheal tube has been removed and nasogastric tube is still in place. Heart sounds are regular and lungs with scattered bilateral rhonchi. Abdomen is soft and nontender and bowel sounds are normal. Extremities are without any cyanosis or clubbing. Neurologically, he is awake and has significant weakness of his right upper extremity, though he was able to squeeze my hand but power was only about 2/5 while in the left hand his power is about 4/5. Today's labs show WBC count 15.6, hemoglobin 9.9 and hematocrit 30. Sodium 133, potassium 4.3, CO2 25, BUN 16, creatinine 5.66. Glucose 248 and calcium 8.4. PROBLEMS: 1. End-stage renal disease. The patient was dialyzed last evening and we will plan to dialyze him again on Sunday. His volume status is well-compensated and electrolytes are stable. No emergent need for dialysis today. 2. Anemia. His anemia is also stable and does not need any urgent intervention. We will continue to monitor and use Aranesp once a week. 3. Pneumonia and respiratory failure. The patient has been extubated this morning and seems to be doing okay. He remains on cefepime for pneumonia. 4. Hypertension. Blood pressure has been very well controlled and we will continue to monitor closely and adjust his medications as needed.
[2019-04-07] MEDS ORDERED: HYOSCYAMINE SULFATE 0.125 MG SUBL TABLET PO PRN (14:30)
[2019-04-07] MEDS ORDERED: ONDANSETRON 4MG/2ML VIAL (J2405) IV PRN (14:30)
[2019-04-07] MEDS ORDERED: VANCOMYCIN HCL 750 MG, VIAL MATE ADAPTER 1 EACH in D5W 250 ML IV ONE (16:00)
[2019-04-07] MEDS: MORPHINE 2 MG/ML 1ML VIAL (J2270) IV PRN (17:21)
[2019-04-07] MEDS: LORazepam 2 MG/ML VIAL (J2060) IV PRN (18:31)
[2019-04-07] MEDS: **NOTE PATIENT COMMENT** MISC XX SCH (21:00)
--- NOTE | 2019-04-07 23:45 | IPN ---
DATE: 04/07/2019 SUBJECTIVE: The patient was seen and examined at the bedside today morning in the intensive care unit (ICU). His mother was also present in the ICU. The patient is currently on high-flow nasal cannula. He is very drowsy, still desaturating on high-flow nasal cannula. Pulmonary critical care team is going to discuss the further goals of care with the patient's when she arrives in the afternoon today. He is still aspirating his tube feeds, so tube feeds were held. Clinically the patient is deteriorating now. OBJECTIVE: Vital signs: Temperature is 97.4 degrees Fahrenheit, blood pressure 96/52, pulse is 87, respiratory rate of 22, saturating 97% on 90% FiO2 via the Vapotherm. Intake and output: There is no urine output recorded. Weight in the bed scale is 128.6 kg. PHYSICAL EXAMINATION: General: The patient is very drowsy, laying in the bed, currently on the high-flow nasal cannula. Head and Neck Exam: The patient has bitemporal wasting. He has lost a significant amount of weight since the last time I saw him. Mucous membranes are moist. He has a nasogastric tube and high-flow nasal cannula. Neck is supple. There is no significant elevation of jugular venous distention (JVD). Cardiovascular: S1, S2, regular rate. Trace edema of the bilateral lower extremities. Respiratory: Decreased breath sounds at the bases bilaterally. Otherwise no active rales or rhonchi. Abdomen: Soft, positive bowel sounds. Mildly tender to deep palpation. Musculoskeletal: No clubbing or cyanosis. Central nervous system (COIL FORMER): The patient is awake. He is congenitally deaf and mute and uses a web designer developer, and he is barely able to communicate. LAB REVIEW: CBC showed a WBC of 8.5, hemoglobin is 10.5, platelets are 318. ABG showed a pH of 7.37, pCO2 of 36, pO2 of 61.8, bicarbonate 21.5, oxygen saturation (O2 sat) is 88.6%. BMP done today morning showed sodium 133, potassium 6.1, chloride 95, bicarbonate 22, BUN 91, creatinine is 8.2, calcium 8.1. IMAGING: A chest x-ray was done today morning, which showed no definite infiltrate. CURRENT INPATIENT MEDICATIONS: The patient's medications were all reviewed by myself. He continues to be on cefepime and fluconazole. He also got one dose of IV vancomycin. No other change in the medications today as compared with yesterday. ASSESSMENT/PLAN: 1. End-stage renal disease. The patient is dialysis dependent. He was dialyzed over the weekend. Volume status is optimal. No urgent need to do dialysis today. 2. Hyperkalemia. The patient's potassium is 6.1. I have ordered a dose of Kayexalate to be given via the nasogastric (NG) tube; however pulmonary team is going to have the NG tube removed because he aspirated his tube feeds. If the patient's family members make him comfort measures, then I would not treat his hyperkalemia. However, if they want to continue the aggressive care, then patient will be given a rectal Kayexalate enema. 3. Recurrent hypoxic respiratory failure. The patient is currently on Vapotherm high-flow nasal cannula. Chest x-ray did not show any evidence of fluid overload. The rest of the management is as per pulmonary team. 4. Hypertension. The patient's blood pressure is optimal. Continue the current antihypertensive regimen. Volume status is optimized with dialysis. 5. Disposition. The patient is in the ICU for more than 2 weeks; clinically he has not made much improvement. He is still in significant respiratory distress. Pulmonary critical care team is going to discuss goals of care and probably making the patient comfort measures only today in the afternoon when the patient's arrives. The patient overall has a poor prognosis.
[2019-04-08] MEDS: MORPHINE 2 MG/ML 1ML VIAL (J2270) IV PRN ×5 (00:46→23:37)
[2019-04-08] MEDS ORDERED: LORazepam 2 MG/ML VIAL (J2060) As Ordered ONE (01:57)
[2019-04-08] MEDS: LORazepam 2 MG/ML VIAL (J2060) IV PRN ×2 (02:02→09:12)
[2019-04-08] MEDS: ALBUTEROL SULFATE 2.5 MG/0.5 ML INH NEB SOLN NEB SCH ×4 (04:00→20:00)
[2019-04-08] MEDS: LIDOCAINE 5% (LIDODERM) PATCH TD SCH (08:11)
[2019-04-08] MEDS: SANTYL OINT 30GM TOP SCH ×3 (08:11→22:06)
--- NOTE | 2019-04-08 08:51 | IPN ---
DATE: 04/07/2019 SUBJECTIVE: The patient is seen and examined this morning during beside rounds. Overnight, patient did experience episode of aspiration on his tube feeds and has been requiring increased oxygen support. 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 He continues to tract much as he has these past few weeks intermittently. OBJECTIVE: Patient has had 1735 mL of output in the last 24 hours. Vitals: As of this morning temperature 97.7, pulse 90, respiratory rate of 12, blood pressure 98/53, pulse ox of 89% on 35% FiO2 with Vapotherm. GENERAL: Patient is awake, alert, in no acute distress. Not following commands. HEENT: Head is normocephalic, atraumatic, extraocular muscles intact, pupils equal, round and reactive to light. Nares patent. Mucous membranes moist. Trachea midline. NECK: No cervical or supraclavicular adenopathy, lymphadenopathy. CARDIOVASCULAR: Regular rate and rhythm. Normal S1, S2. No murmurs, gallops or rubs. RESPIRATORY: Lungs are clear to auscultation bilaterally. Coarse breath sounds bilaterally but no wheezes, crackles or rhonchi noted. ABDOMEN: Soft, nontender. Nondistended. Bowel sounds present. EXTREMITIES: No lower extremity edema noted bilaterally. Patient moves his bilateral lower extremities spontaneously. His left arm spontaneously. Does not move his right upper extremity. LABORATORY DATA: White blood cell count of 8.5, hemoglobin 10.5, hematocrit 32.5, platelet count of 318. Sodium 133, potassium 6.1, chloride 95, bicarbonate 22, BUN 91, creatinine 8.27, glucose 262, calcium 8.1. IMAGING: Chest x-ray: No definite infiltrate seen. ASSESSMENT/PLAN: At this point, given that the patient now is aspirating with his tube feeds. A decision needs to be made about whether or not the patient would want a percutaneous endoscopic gastrostomy (PEG) tube in. We met with family including Britt and mother Mellissa as well as a friend of theirs to discuss what Jayant would want given that he is not able to communicate this wishes at this time. It had already been previously decided that he would not want to be re-intubated, nor would he want a tracheostomy tube put in place. Ultimately, when the family was given the choices of putting in a PEG tube which would ultimately require him needing a tracheostomy tube put in place and having him having to be in a senior living care facility while he underwent physical therapy of some kind for an indefinite amount of time versus withdrawal of care and making him comfort measures only, the family elected to make him comfort measures only. They also requested that the organ donation service be contacted as they felt that, that is something that he would have wanted as well. We let the primary hospitalist service know the family's decision and the patient has been made comfort measures only at this time. The critical care service will continue to follow along. Please call us if you have any questions or concerns.
--- NOTE | 2019-04-08 10:49 | IPNPDOC ---
Text Note Date of Service The patient was seen on 04/08/19. NOTE Subjective: Comfortable , somnolent in no distress. at bedside. 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 ASSESSMENT/PLAN: Patient is a 48-year-old male who presented to [facility] emergency department on 03/19/2019 after an out of hospital cardiac arrest. Patient reportedly at dialysis Center. He reportedly had completed dialysis and was standing to take a blood pressure when he collapsed and had possible seizure-like activity. Per review of hospital records, patient unresponsive and in PEA when EMS presented. ROSC was retrieved after approximately 10 minutes out of hospital CPR. Patient could not be intubated in field and was brought to the ED with LMA in place. Patient was admitted to the ICU and underwent targeted temperature management. Patient was extubated on 03/27/2019, however, required reintubation for airway edema and started on Decadron. Patient successfully extubated 03/28/2019. During the course of hospital stay, patient with increased lethargy and increased work of breathing necessitating re-intubation on 03/30/2019. he was found to have developed pneumonia, aspiration and with again worsening of respiratory status. Patient now has been successfully extubated again on 04/06/19. Family has opted to keep him comfortable at this point. They do not any further interventions , We have stopped dialysis, discontinued NG tube. 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 Oxygen and moreno for comfort. PEA Cardiac Arrest from unknown etiology happened inthe HD center just after finishing HD. 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 Sacral pressure ulcer DM2 Hypertriglyceridemia ESRD--dailysis has been stopped. 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 VS,Fishbone, I+O VS, Fishbone, I+O Vital Signs Date Time Temp Pulse Resp B/P (MAP) Pulse Ox O2 Delivery O2 Flow Rate FiO2 04/08/19 00:46 Nasal Cannula 3.0 04/07/19 13:00 97.8 90 14 118/65 (14) 06 749 I&O- Last 24 Hours up to 6 AM 04/08/19 05:59 Intake Total 0 ml Output Total 0 ml Balance 0 ml DELISA PAIGE MD Apr 08, 2019 10:49
[2019-04-08] MEDS: **NOTE PATIENT COMMENT** MISC XX SCH (21:00)
[2019-04-09] MEDS: ALBUTEROL SULFATE 2.5 MG/0.5 ML INH NEB SOLN NEB SCH ×6 (04:00→20:00)
[2019-04-09] MEDS: MORPHINE 2 MG/ML 1ML VIAL (J2270) IV PRN ×4 (04:37→17:01)
[2019-04-09] MEDS: LORazepam 2 MG/ML VIAL (J2060) IV PRN ×3 (08:11→22:13)
[2019-04-09] MEDS: LIDOCAINE 5% (LIDODERM) PATCH TD SCH (08:40)
[2019-04-09] MEDS: SANTYL OINT 30GM TOP SCH (09:00)
[2019-04-09] MEDS: **NOTE PATIENT COMMENT** MISC XX SCH (21:00)
[2019-04-10] MEDS: ALBUTEROL SULFATE 2.5 MG/0.5 ML INH NEB SOLN NEB SCH ×3 (00:08→00:09)
--- NOTE | 2019-04-17 15:00 | DS.PDOC ---
Discharge Summary General Date of Admission Mar 19, 2019 at 18:37 Date of Discharge 04/09/19 Discharge Summary DISCHARGE DIAGNOSES: Out of hospital PEA cardiac arrest Recurrent acute hypoxic and hypercarbic respiratory failure Multiple bilateral embolic CVAs Aspiration pneumonia PFO H/o pontine stroke in 2019 ESRD Diabetes Hypertension Hyperlipidemia sacral pressure ulcer COMPLICATIONS/CHIEF COMPLAINT: Cardiac Arrest. HISTORY OF PRESENT ILLNESS: See history and physical HOSPITAL COURSE: Patient is a 48-year-old male who is deaf, ESRD, DM, prior h/o pontine stroke who presented to [facility] emergency department on 03/19/2019 after an out of hospital cardiac arrest. Patient reportedly was at dialysis Center. He reportedly had completed dialysis and was standing to take a blood pressure when he collapsed and had possible seizure-like activity. Per review of hospital records, patient unresponsive and in PEA when EMS presented. ROSC was retrieved after approximately 10 minutes out of hospital CPR. Patient could not be intubated in field and was brought to the ED with LMA in place. Patient was admitted to the ICU and underwent targeted temperature management. Work up sh owed that he had suffered multiple bilateral CVAs. Does have H/o PFO. it was felt that he could have developed clots during PEA cardiac arrest leading to embolic strokes. Patient was extubated on 03/27/2019, however, required reintubation for airway edema and started on Decadron. Patient successfully extubated 03/28/2019. During the course of hospital stay, patient with increased lethargy and increased work of breathing necessitating re-intubation on 03/30/2019. He was found to have developed pneumonia, aspiration pneumonia and with again worsening of respiratory status. Patient was again extubated again on 04/06/19. Family then opted to keep him comfortable at that point. they did not any further intubations. They did not any further interventions, dialysis was stopped, discontinued NG tube. no labs or radiology. Patient was transferred to [facility] status. Patient naturally on 04/09/19 with family at bedside. DISPOSITION: 20 . TIME SPENT ON DISCHARGE: 31 minutes. Microbiology Microbiology 04/07/19 Respiratory Virus Panel (PCR) (DEREK) - Final, Complete 04/07/19 Gram Stain - Final, Complete 04/07/19 Sputum Culture - Final, Complete Yeast Like Organism Discharge Medications Scheduled Amlodipine Besylate (Amlodipine Besylate) 5 Mg Tablet, 5 MG PO DAILY, (Reported) Aspirin (Aspirin EC) 81 Mg Tablet.dr, 81 MG PO DAILY, (Reported) Carvedilol (Carvedilol) 6.25 Mg Tablet, 6.25 MG PO BID, (Reported) Clonidine (Clonidine) 0.3 Mg Patch.tdwk, 0.3 MG PO QWEEK, (Reported) APPLIES TO LEFT DELTOID ON SUNDAY EVENINGS Folic Acid/Vit B Complex and C (Aisha-Samantha Tablet) 0.8 Mg Tablet, 1 TAB PO DAILY, (Reported) Glipizide (Glipizide) 10 Mg Tablet, 20 MG PO BID, (Reported) Hydralazine HCl (Hydralazine HCl) 50 Mg Tablet, 100 MG PO TID, (Reported) Icosapent Ethyl (Vascepa) 1 Gm Capsule, 2 GM PO BID, (Reported) Insulin Aspart (Novolog Flexpen) 100 Unit/1 Ml Insuln.pen, 1 DOSE SC AC, (Reported) PER SLIDING SCALE Insulin Detemir (Levemir Flextouch) 100 Unit/1 Ml Insuln.pen, 20 UNITS SC BID, (Reported) BREAKFAST/DINNER Pantoprazole Sodium (Pantoprazole Sodium) 40 Mg Tablet.dr, 40 MG PO DAILY, (Reported) Rosuvastatin Calcium (Rosuvastatin Calcium) 10 Mg Tablet, 10 MG PO QPM, (Rep orted) DINNERTIME Sertraline HCl (Sertraline HCl) 25 Mg Tablet, 25 MG PO DAILY, (Reported) Sucroferric Oxyhydroxide (Velphoro) 500 Mg Tab.chew, 1,500 MG PO WM, (Reported) Allergies Coded Allergies: Penicillins (Verified Allergy, Severe, ANAPHYLAXIS, 03/19/19) bacitracin (Verified Allergy, Mild, RASH, 03/19/19) neomycin (Verified Allergy, Mild, RASH, 03/19/19) polymyxin B (Verified Allergy, Mild, RASH, 03/19/19) DELISA PAIGE MD Apr 17, 2019 15:00
== END 2019-04-09 23:25 | disposition expired | DRG 296 ==
LOC: M ED 16:29 → EDBD 16:29 → M ED INP 18:37 → ENRESERV 19:18 → M ICU 21:15 → M MSPAV 04-07 17:13
PROVIDERS: ADMIT Internal Medicine Pulmonary Disease; ATTEND Internal Medicine Pulmonary Disease
PROC: 5A1955Z Respiratory Ventilation, Greater than 96 Consecutive Hours (ICD-10-PCS; 2019-03-19)
PROC: 0BH17EZ Insertion of Endotracheal Airway into Trachea, Via Natural or Artificial Opening (ICD-10-PCS; 2019-03-19)
PROC: 5A1D70Z Performance of Urinary Filtration, Intermittent, Less than 6 Hours Per Day (ICD-10-PCS; principal; 2019-03-21)
PROC: 0BH17EZ Insertion of Endotracheal Airway into Trachea, Via Natural or Artificial Opening (ICD-10-PCS; 2019-03-27)
PROC: 0BH17EZ Insertion of Endotracheal Airway into Trachea, Via Natural or Artificial Opening (ICD-10-PCS; 2019-03-30)
PROC: 0B9F8ZZ Drainage of Right Lower Lung Lobe, Via Natural or Artificial Opening Endoscopic (ICD-10-PCS; 2019-03-30)
DX: I46.9 Cardiac arrest, cause unspecified (principal); G93.41 Metabolic encephalopathy; N18.6 End stage renal disease; J96.02 Acute respiratory failure with hypercapnia; I63.40 Cerebral infarction due to embolism of unspecified cerebral artery; J96.01 Acute respiratory failure with hypoxia; J69.0 Pneumonitis due to inhalation of food and vomit; Q21.1 Atrial septal defect; I12.0 Hypertensive chronic kidney disease with stage 5 chronic kidney disease or end stage renal disease; Z99.11 Dependence on respirator [ventilator] status; E87.1 Hypo-osmolality and hyponatremia; I96 Gangrene, not elsewhere classified; Z66 Do not resuscitate; D63.1 Anemia in chronic kidney disease; Z99.2 Dependence on renal dialysis; E11.22 Type 2 diabetes mellitus with diabetic chronic kidney disease; G47.33 Obstructive sleep apnea (adult) (pediatric); H90.5 Unspecified sensorineural hearing loss; Z86.73 Personal history of transient ischemic attack (TIA), and cerebral infarction without residual deficits; Z98.84 Bariatric surgery status; Z88.0 Allergy status to penicillin; Z88.1 Allergy status to other antibiotic agents; Z79.82 Long term (current) use of aspirin; Z79.4 Long term (current) use of insulin; Z79.899 Other long term (current) drug therapy; E11.65 Type 2 diabetes mellitus with hyperglycemia; L89.150 Pressure ulcer of sacral region, unstageable; E83.41 Hypermagnesemia; J38.4 Edema of larynx; E87.5 Hyperkalemia; E83.39 Other disorders of phosphorus metabolism; Z51.5 Encounter for palliative care; D72.829 Elevated white blood cell count, unspecified